=== PATIENT | female | born 1940 | race Caucasian/White ===

== ENCOUNTER 2016-11-08 13:09 | Day surgery (SDC) | payer MEDICARE ==
[~2016-11-08 13:09] MED LIST: LISI10TA3 PO; MACR100C2 PO; PACLPB100P
[2016-11-08 14:10] VITALS: BP 134/85; PULSE 60; RESP 14; TEMP 97.5; O2SAT 98
[2016-11-08 15:03] VITALS: BP 131/78; PULSE 96; RESP 14; TEMP 98.7; O2SAT 96
[2016-11-08 15:15] VITALS: BP 126/81; PULSE 93; RESP 20; O2SAT 95
[2016-11-08 15:30] VITALS: BP 146/76; PULSE 94; RESP 20; O2SAT 95
--- NOTE | 2016-11-08 16:21 | RADRPT ---
EXAM DATE/TIME: 11/08/2016 13:48 [facility] COMPARISON: US GUIDED ABD PARACENTESIS, October 25, 2016, 8:53. INDICATIONS : Ascites. MEDICAL HISTORY : Hypertension. Arthritis. Neuropathy. Ovarian and breast cancer. SURGICAL HISTORY : Hysterectomy. Bilateral cataract surgery. Paracentensis. Omental biosy. Left knee arthrscopy. ENCOUNTER: Subsequent ACUITY: 1 week PAIN SCORE: 3/10 LOCATION: Right lower quadrant FLUID: Total volume of 3,800 cc of clear, yellow fluid was removed. Fluid was discarded. Paracentesis was therapeutic only. Post procedure scanning reveals no hematoma or other complication. TECHNIQUE: 1. Ultrasound guidance for abdominal paracentesis. 2. Paracentesis. The risks, benefits, and alternatives to ultrasound guided paracentesis were explained to the patient in detail including the risk of bleeding and infection. Written and verbal informed consent was obt ained. With the patient on the ultrasound table, ultrasound imaging was used to select the most appropriate approach for paracentesis. Overlying skin was prepped and draped in the usual sterile fashion and wi th a local anesthetic, a dermatotomy was made with an 11 blade scalpel. A 6 Congolese [id number] ca theter was introduced into the peritoneal cavity and fluid was collected. The patient tolerated the procedure well and left the ultrasound suite in stable condition. CONCLUSION: Uncomplicated ultrasound guided paracentesis. Ty Owens MD on November 08, 2016 at 16:20 Board Certified Radiologist. This report was verified electronically.
== END 2016-11-08 16:00 | disposition home or self-care (01) ==
LOC: HRAD 13:09 → HRIP 13:10 → HRAD 16:00
PROVIDERS: ATTEND Obstetrics & Gynecology Gynecologic Oncology
DX: R18.8 Other ascites (principal); I10 Essential (primary) hypertension; M19.90 Unspecified osteoarthritis, unspecified site
CPT/HCPCS: 49083; C1729

== ENCOUNTER 2016-11-21 10:11 | Day surgery (SDC) | payer MEDICARE ==
[2016-11-21 11:05] VITALS: BP 130/82; PULSE 111; RESP 14; TEMP 97.8; O2SAT 97
--- NOTE | 2016-11-21 12:13 | RADRPT ---
EXAM DATE/TIME: 11/21/2016 10:32 [facility] COMPARISON: EXTERNAL COMPARISON: US GUIDED ABD PARACENTESIS, November 08, 2016, 13:48. [facility], CT ABDOMEN & PELVIS W/CONTR AST, Jul 12 2016, May 17, 2016, XR ABDOMEN FLAT & UPRIGHT, July 11, 2016, May 17, 2016, PET/C T TUMOR COMPLETE, June 19, 2016. INDICATIONS : Ascites. MEDICAL HISTORY : Hypertension. Arthritis. Neuropathy. Ovarian and breast cancer. Ascites. SURGICAL HISTORY : Hysterectomy. Bilateral cataract surgery. Paracentesis. Omental biopsy. Left knee arthroscopy. Chem otherapy. Blood transfusions. ENCOUNTER: [facility] ACUITY: 2 weeks PAIN SCORE: 5/10 LOCATION: Right lower quadrant FLUID: Total volume of 4,100 cc of clear, dark yellow fluid was removed. Fluid was discarded. Paracentesis was therapeutic only. Post procedure scanning reveals no hematoma or other complication. TECHNIQUE: 1. Ultrasound guidance for abdominal paracentesis. 2. Paracentesis. The risks, benefits, and alternatives to ultrasound guided paracentesis were explained to the patient in detail including the risk of bleeding and infection. Written and verbal informed consent was obt ained. With the patient on the ultrasound table, ultrasound imaging was used to select the most appropriate approach for paracentesis. Overlying skin was prepped and draped in the usual sterile fashion and wi th a local anesthetic, a dermatotomy was made with an 11 blade scalpel. A 6 Turkmen [id number]-A-[id number] ca theter was introduced into the peritoneal cavity and fluid was collected. The patient tolerated the procedure well and left the ultrasound suite in stable condition. CONCLUSION: Uncomplicated ultrasound guided paracentesis. Roddy Lamb MD FACR on November 21, 2016 at 12:07 Board Certified Radiologist. This report was verified electronically.
[2016-11-21 12:16] VITALS: BP 127/90; PULSE 109; RESP 20; TEMP 98.1; O2SAT 96
[2016-11-21 12:30] VITALS: BP 147/90; PULSE 110; RESP 18; O2SAT 96
== END 2016-11-21 12:53 | disposition home or self-care (01) ==
LOC: HRAD 10:11 → HRIP 10:11 → HRAD 12:53
PROVIDERS: ATTEND Obstetrics & Gynecology Gynecologic Oncology
DX: R18.8 Other ascites (principal); I10 Essential (primary) hypertension; M19.90 Unspecified osteoarthritis, unspecified site; C56.9 Malignant neoplasm of unspecified ovary; R97.1 Elevated cancer antigen 125 [CA 125]; B95.4 Other streptococcus as the cause of diseases classified elsewhere; Z79.899 Other long term (current) drug therapy
CPT/HCPCS: 49083; 96365; 96366; 96375; C1729; J1626; J1642; J3475; J7030

== ENCOUNTER 2016-11-29 10:12 | Day surgery (SDC) | payer MEDICARE ==
[2016-11-29 10:42] VITALS: BP 123/91; PULSE 104; RESP 14; TEMP 97.8; O2SAT 94
[2016-11-29 12:00] VITALS: BP 115/69; PULSE 98; RESP 18; TEMP 97.5; O2SAT 98
[2016-11-29 12:15] VITALS: BP 118/77; PULSE 93; RESP 16; O2SAT 97
[2016-11-29 12:30] VITALS: BP 118/76; PULSE 96; RESP 18; O2SAT 97
--- NOTE | 2016-11-29 15:29 | RADRPT ---
EXAM DATE/TIME: 11/29/2016 10:52 [facility] COMPARISON: No previous studies available for comparison. EXTERNAL COMPARISON: [facility], CT ABDOMEN & PELVIS W/CONTRAST, Jul 12 2015 and 05/17/16. XR ABDOMEN FLAT & UPRIGH T, July 11, 2016, May 17, 2016, PET/CT TUMOR COMPLETE, May INDICATIONS : Ascites. MEDICAL HISTORY : Hypertension. Arthritis. Neuropathy. Ovarian and breast cancer. Ascites. SURGICAL HISTORY : Hysterectomy. Bilateral cataract surgery. Paracentesis. Omental biopsy.Left knee arthroscopy. Chemo therapy. Blood transfusions. ENCOUNTER: Sequela ACUITY: 1 week PAIN SCORE: 11/06 LOCATION: Right lower quadrant FLUID: Total volume of 2,600 cc of clear, yellow fluid was removed. Fluid was discarded. Paracentesis was therapeutic only. Post procedure scanning reveals no hematoma or other complication. TECHNIQUE: 1. Ultrasound guidance for abdominal paracentesis. 2. Paracentesis. The risks, benefits, and alternatives to ultrasound guided paracentesis were explained to the patient in detail including the risk of bleeding and infection. Written and verbal informed consent was obt ained. With the patient on the ultrasound table, ultrasound imaging was used to select the most appropriate approach for paracentesis. Overlying skin was prepped and draped in the usual sterile fashion and wi th a local anesthetic, a dermatotomy was made with an 11 blade scalpel. A 6 Belarusian [id number]-P-[id number] ca theter was introduced into the peritoneal cavity and fluid was collected. The patient tolerated the procedure well and left the ultrasound suite in stable condition. CONCLUSION: Uncomplicated ultrasound guided paracentesis. Thiago Zaragoza MD on November 29, 2016 at 15:27 Board Certified Radiologist. This report was verified electronically.
== END 2016-11-29 12:55 | disposition home or self-care (01) ==
LOC: HRAD 10:12 → HRIP 10:12 → HRAD 12:55
PROVIDERS: ATTEND Obstetrics & Gynecology Gynecologic Oncology
DX: R18.8 Other ascites (principal); I10 Essential (primary) hypertension; M19.90 Unspecified osteoarthritis, unspecified site
CPT/HCPCS: 49083; C1729

== ENCOUNTER 2016-12-07 10:03 | Day surgery (SDC) | payer MEDICARE ==
[2016-12-07 10:28] VITALS: BP 127/76; PULSE 102; RESP 14; TEMP 97; O2SAT 100
[2016-12-07] MEDS ORDERED: LIDOCAINE HCL 1% PF 30 ML VIAL ONE (11:13)
[2016-12-07 11:16] VITALS: BP 119/91; PULSE 102; RESP 18; O2SAT 100
[2016-12-07 11:34] VITALS: BP 125/91; PULSE 105; RESP 19; O2SAT 100
--- NOTE | 2016-12-07 13:36 | RADRPT ---
EXAM DATE/TIME: 12/07/2016 10:16 [facility] COMPARISON: US GUIDED ABD PARACENTESIS, November 29, 2016, 10:52. INDICATIONS : Ascites. MEDICAL HISTORY : Hypertension. Breast cancer. Ovarian cancer. SURGICAL HISTORY : Cataract surgery. Chemotherapy. ENCOUNTER: Subsequent ACUITY: 1 week PAIN SCORE: 3/10 LOCATION: Right lower quadrant FLUID: Total volume of 3000 cc of clear, yellow fluid was removed. Fluid was discarded. Paracentesis was therapeutic only. Post procedure scanning reveals no hematoma or other complication. TECHNIQUE: 1. Ultrasound guidance for abdominal paracentesis. 2. Paracentesis. The risks, benefits, and alternatives to ultrasound guided paracentesis were explained to the patient in detail including the risk of bleeding and infection. Written and verbal informed consent was obt ained. With the patient on the ultrasound table, ultrasound imaging was used to select the most appropriate approach for paracentesis. Overlying skin was prepped and draped in the usual sterile fashion and wi th a local anesthetic, a dermatotomy was made with an 11 blade scalpel. A 6 Burmese [id number]-[id number] ca theter was introduced into the peritoneal cavity and fluid was collected. The patient tolerated the procedure well and left the ultrasound suite in stable condition. CONCLUSION: Uncomplicated ultrasound guided paracentesis. Roddy Lamb MD FACR on December 07, 2016 at 13:35 Board Certified Radiologist. This report was verified electronically.
== END 2016-12-07 12:55 | disposition home or self-care (01) ==
LOC: HRIP 10:03 → HRAD 10:03
PROVIDERS: ATTEND Obstetrics & Gynecology Gynecologic Oncology
DX: R18.8 Other ascites (principal); I10 Essential (primary) hypertension; Z85.43 Personal history of malignant neoplasm of ovary; Z85.3 Personal history of malignant neoplasm of breast
CPT/HCPCS: 49083; C1729

== ENCOUNTER 2016-12-08 16:42 | Inpatient (IN) | payer MEDICARE ==
[~2016-12-08] VITALS: Ht 170.2 cm; Wt 62.0 kg
[2016-12-08 16:46] VITALS: BP 126/74; PULSE 118; RESP 20; TEMP 97.7; O2SAT 96
--- NOTE | 2016-12-08 16:55 | PD ---
HPI Chief Complaint: abdominal pain, vomiting Time Seen by Provider: 16:55 Travel History International Travel<30 days: No Contact w/Intl Traveler<30days: No Traveled to known affect area: No History of Present Illness HPI 76-year-old female came to the emergency room with history of nausea and vomiting for past 1 week. She is having some abdominal discomfort as well. She is concerned if she has small bowel obstruction. Patient has history of ovarian cancer and has had multiple surgeries. She is going through chemotherapy. She looks sick and emaciated. Patient says that for past 3-4 weeks she hasn't had any chemotherapy because she wanted to take a break. She had a paracentesis done yesterday by radiology. Patient was tachycardic when she arrived with her heart rate in 1 teens. Her is here with her. Patient says her last vomit was earlier this morning. She has been having some bowel movement but they are small in quantity and frequent. She had some bites of Jell-O and visits of drink today after the vomit and that seems to stay down. The color of her vomit is [place]. No blood noticed. She said her oncologist is Dr. Phillip[facility] Past Medical History Narrative Medical List of her past medical history as reviewed from the nursing note. Cancer: Yes (RIGHT BREAST/ OVARIAN) Cardiovascular Problems: No Chemotherapy: Yes (09/21/16) Diabetes: No Endocrine: No Genitourinary: No Hepatitis: No Hiatal Hernia: No Hypertension: Yes Immune Disorder: No Implanted Vascular Access Dvce: Yes (L PORT ) Musculoskeletal: Yes (ARTHRITIS, BONE PAIN FROM NEULASTA) Neurologic: Yes (NEUROPATHY FEET/ HANDS (CHEMO)) Psychiatric: No Reproductive: Yes (OVARIAN ) Respiratory: No Thyroid Disease: No Past Surgical History Abdominal Surgery: No AICD: No Cardiac Surgery: No Ear Surgery: No Endocrine Surgery: No Eye Surgery: Yes (BENJA. CATARACT EXTRACT.) Genitourinary Surgery: No Gynecologic Surgery: Yes (PARACENTESIS, OMENTAL BX, HYSTERECTOMY/BSO) Hysterectomy: Yes Joint Replacement: No Oral Surgery: No Pacemaker: No Thoracic Surgery: No Other Surgery: Yes Social History Alcohol Use: No Tobacco Use: No Substance Use: No Allergies-Medications (Allergen,Severity, Reaction): Coded Allergies: *MDRO Multi-Drug Resistant Organism (Verified Adverse Reaction, Unknown, 2 /11/17) ESBL E. coli (urine) - 08/27/16 Comments List of her allergies reviewed from the nursing note. Reported Meds & Prescriptions Reported Meds & Active Scripts Active Narrative Medication List of her medications reviewed from the nursing note. Review of Systems Except as stated in HPI: all other systems reviewed are Neg Physical Exam Narrative GENERAL: Awake, alert, emaciated, moderate distress, anxious SKIN: Warm and dry. Pale HEAD: Atraumatic. Normocephalic. EYES: Pupils equal and round. No scleral icterus. No injection or drainage. ENT: No nasal bleeding or discharge. Dry mucous membrane NECK: Trachea midline. No JVD. CARDIOVASCULAR: Regular rate and rhythm. No murmur appreciated. RESPIRATORY: No accessory muscle use. Clear to auscultation. Breath sounds equal bilaterally. GASTROINTESTINAL: Abdomen is tense and distended. Multiple scars from old surgery. Decreased bowel sounds. Hepatic and splenic margins not palpable. MUSCULOSKELETAL: No obvious deformities. No clubbing. No cyanosis. No edema. NEUROLOGICAL: Awake and alert. No obvious cranial nerve deficits. Motor grossly within normal limits. Normal speech. PSYCHIATRIC: Appropriate mood and affect; insight and judgment normal. Data Data Last Documented VS Vital Signs Date Time Temp Pulse Resp B/P Pulse Ox O2 Delivery O2 Flow Rate FiO2 12/08/16 17:09 18 99 Room Air 12/08/16 16:46 97.7 118 126/74 Orders Complete Blood Count With Diff (12/08/16 17:07) Comprehensive Metabolic Panel (12/08/16 17:07) Lipase (12/08/16 17:07) Prothrombin Time / Inr (Pt) (12/08/16 17:07) Urinalysis - C+S If Indicated (12/08/16 17:07) Ct Abd/Pel W/O Iv Contrast (12/08/16 17:07) Iv Access Insert/Monitor (12/08/16 17:07) Ecg Monitoring (12/08/16 17:07) Oximetry (12/08/16 17:07) Ondansetron Inj (Zofran Inj) (12/08/16 17:15) Sodium Chlor 0.9% 1000 Ml Inj (Ns 1000 M (12/08/16 17:07) Sodium Chloride 0.9% Flush (Ns Flush) (12/08/16 17:15) Type And Screen (12/08/16 17:07) Sue-Gastric Tube Insert/Mon (12/08/16 18:20) Admit Order (Ed Use Only) (12/08/16 18:30) Labs Laboratory Tests Test 12/08/16 17:21 White Blood Count 11.9 TH/MM3 Red Blood Count 3.85 MIL/MM3 Hemoglobin 12.2 GM/DL Hematocrit 36.4 % Mean Corpuscular Volume 94.5 FL Mean Corpuscular Hemoglobin 31.5 PG Mean Corpuscular Hemoglobin 33.4 % Concent Red Cell Distribution Width 20.3 % Platelet Count 230 TH/MM3 Mean Platelet Volume 7.6 FL Neutrophils (%) (Auto) 79.7 % Lymphocytes (%) (Auto) 9.6 % Monocytes (%) (Auto) 10.0 % Eosinophils (%) (Auto) 0.1 % Basophils (%) (Auto) 0.6 % Neutrophils # (Auto) 9.5 TH/MM3 Lymphocytes # (Auto) 1.1 TH/MM3 Monocytes # (Auto) 1.2 TH/MM3 Eosinophils # (Auto) 0.0 TH/MM3 Basophils # (Auto) 0.1 TH/MM3 CBC Comment AUTO DIFF Differential Comment AUTO DIFF CONFIRMED Platelet Estimate NORMAL Platelet Morphology Comment NORMAL Red Cell Morphology Comment NORMAL Prothrombin Time 11.5 SEC Prothromb Time International 1.0 RATIO Ratio Sodium Level 136 MEQ/L Potassium Level 4.0 MEQ/L Chloride Level 102 MEQ/L Carbon Dioxide Level 27.1 MEQ/L Anion Gap 7 MEQ/L Blood Urea Nitrogen 31 MG/DL Creatinine 1.03 MG/DL Estimat Glomerular Filtration 52 ML/MIN Rate Random Glucose 105 MG/DL Calcium Level 7.9 MG/DL Total Bilirubin 0.5 MG/DL Aspartate Amino Transf 27 U/L (AST/SGOT) Alanine Aminotransferase 28 U/L (ALT/SGPT) Alkaline Phosphatase 170 U/L Total Protein 4.9 GM/DL Albumin 1.8 GM/DL Lipase 78 U/L Blood Type A POSITIVE Antibody Screen NEGATIVE MDM Medical Decision Making Medical Screen Exam Complete: Yes Emergency Medical Condition: Yes Medical Record Reviewed: Yes Differential Diagnosis Small bowel obstruction, ascites, intra-abdominal mass Narrative Course 6:27 PM blood test results are back and within acceptable limits. CAT scan however shows small bowel obstruction. I spoke with the patient about the diagnosis and requirement of the nasogastric tube and admission. Awaiting for the residents to call back. I will also put a call out for her oncologist Dr. Phillip and waiting for him to call back. Procedures EKG Prior to Arrival: No Diagnosis Primary Impression: Small bowel obstruction Additional Impressions: Ovarian cancer Qualified Code: C56.9 - Ovarian cancer, unspecified laterality Malignant ascites Admitting Information Admitting Physician Requests: Admit Scripts No Active Prescriptions or Reported Meds Yoselin Cavazos MD Dec 08, 2016 16:55
[2016-12-08] MEDS ORDERED: SODIUM CHLOR 0.9% 1000 ML INJ 1,000 ML IV SCH (17:07)
[2016-12-08 17:09] VITALS: RESP 18; O2SAT 99
[2016-12-08] MEDS ORDERED: SODIUM CHLORIDE 0.9% FLUSH 5 ML FLUSH IVF PRN (17:15)
[2016-12-08] MEDS ORDERED: ONDANSETRON HCL 4 MG/2 ML VIAL IVP ONE (17:15)
[2016-12-08 17:41] LABS: AUTOMATED NEUTROPHIL # 9.5 TH/MM3 (1.8-7.7); BASOPHIL # 0.1 TH/MM3 (0-0.2); BASOPHIL % 0.6 % (0.0-2.0); EOSINOPHIL % 0.1 % (0.0-4.0); HEMATOCRIT 36.4 % (35.0-46.0); LYMPH % 9.6 % (9.0-44.0); LYMPHOCYTE # 1.1 TH/MM3 (1.0-4.8); MEAN CELL VOLUME 94.5 FL (80.0-100.0); MEAN CORPUSCULAR HEMOGLOBIN 31.5 PG (27.0-34.0); MEAN CORPUSCULAR HGB CONC 33.4 % (32.0-36.0); NEUT % 79.7 % (16.0-70.0); PLATELET COUNT 230 TH/MM3 (150-450); RED BLOOD COUNT 3.85 MIL/MM3 (4.00-5.30); RED CELL DISTRIBUTION WIDTH 20.3 % (11.6-17.2); WHITE BLOOD COUNT 11.9 TH/MM3 (4.0-11.0)
[2016-12-08 17:43] LABS: HEMO FLAGS AUTO DIFF
[2016-12-08 17:50] LABS: PROTHROMBIN TIME - PATIENT 11.5 SEC (9.8-11.6)
[2016-12-08 17:57] LABS: ALT (GPT) 28 U/L (10-53); ANION GAP 7 MEQ/L (5-15); AST (GOT) 27 U/L (15-37); BICARBONATE 27.1 MEQ/L (21.0-32.0); BLOOD UREA NITROGEN 31 MG/DL (7-18); CHLORIDE 102 MEQ/L (98-107); GLOMERULAR FILTRATION RATE 52 ML/MIN (>89); SODIUM (NA) 136 MEQ/L (136-145)
[2016-12-08 17:59] LABS: ALKALINE PHOSPHATASE 170 U/L (45-117); TOTAL BILIRUBIN ADULT 0.5 MG/DL (0.2-1.0)
--- NOTE | 2016-12-08 18:15 | RADRPT ---
EXAM DATE/TIME: 12/08/2016 17:38 [facility] COMPARISON: No previous studies available for comparison. INDICATIONS : Diffuse abdominal pain with nausea and vomiting for 1 week. ORAL CONTRAST: No oral contrast ingested. RADIATION DOSE: 6.79 CTDIvol (mGy) MEDICAL HISTORY : Hypertension. Carcinoma, breast. Ovarian cancer. SURGICAL HISTORY : Colon resection. Paracentesis; Right lumpectomy. ENCOUNTER: Initial ACUITY: 1 week PAIN SCALE: 5/10 LOCATION: Diffuse abdomen/pelvis TECHNIQUE: Volumetric scanning of the abdomen and pelvis was performed. Using automated exposure control and ad justment of the mA and/or kV according to patient size, radiation dose was kept as low as reasonably achievable to obtain optimal diagnostic quality images. FINDINGS: Lung bases are clear. There is moderate ascites around the liver and spleen. There is gaseous distent ion of small bowel with multiple air-fluid levels. Findings are characteristic of a small bowel obstr uction similar in appearance to September 2016. Mild constipation in the rectum. Mild lumbar levoscoli osis. No free air. CONCLUSION: 1. Small bowel obstruction similar in appearance to September 2016. 2. Moderate ascites also similar to September 2016. No free air. Lung bases clear. Alban Farris MD on December 08, 2016 at 17:52 Board Certified Radiologist. This report was verified electronically.
[2016-12-08 18:42] LABS: PLATELET ESTIMATE SMEAR NORMAL (NORMAL); PLATELET MORPHOLOGY NORMAL (NORMAL); SCAN/DIFF AUTO DIFF CONFIRMED
--- NOTE | 2016-12-08 19:02 | HHI.HP ---
[facility] Service Family Medicine Primary Care Physician Silver Berry MD Admission Diagnosis small bowel obstruction, ovarian cancer, malignant ascites Diagnoses: International Travel<30 Days: No Contact w/Intl Traveler<30days: No Known Affected Area: No History of Present Illness This is 76-year-old, female with past medical history significant for ovarian cancer currently on a break from chemotherapy. She is presenting to the ED for a one-week history of nausea and vomiting. She's been having cramping pains throughout that week though they have improved at this time. She 's been burping as well multiple times. Today. She has mailed to get any solid foods down eating mostly soups and Jell-O's. She says she's had bowel movement every day since this is been occurring however they have been much smaller than her norm soft and less frequent. She strains trying to prove out what she can. She gets paracentesis frequently last time was yesterday . Even after the paracentesis and the ascites removed she feels that her abdomen is bloated and harder then her norm. She denies any blood in her stool , says that it has been brown. The vomiting has been orange color the last episode of vomiting was at 1500 on 12/08/16. Since being in the hospital on antinausea medications she says that her nausea has greatly improved. She denies any fevers or chills. Review of Systems Constitutional: COMPLAINS OF: Fatigue, Weight loss, Change in appetite ( decreased), DENIES: Fever, Weight gain, Chills, Dizziness Endocrine: DENIES: Polydipsia, Polyuria Eyes: DENIES: Blurred vision, Double Vision Ears, nose, mouth, throat: COMPLAINS OF: Hoarseness, DENIES: Tinnitus, Throat pain, Running Nose, Sinus Pain Respiratory: DENIES: Cough, Sputum production, Shortness of breath Cardiovascular: COMPLAINS OF: Lower Extremity Edema, DENIES: Chest pain, Syncope Gastrointestinal: COMPLAINS OF: Abdominal pain, Constipation, Nausea, Vomiting , Difficulty Swallowing, Anorexia, DENIES: Black stools, Bloody stools, Diarrhea Genitourinary: DENIES: Urinary frequency, Urinary incontinence, Hematuria Musculoskeletal: COMPLAINS OF: Back pain, DENIES: Joint pain, Stiffness, Neck pain Integumentary: DENIES: Rash Hematologic/lymphatic: DENIES: Bruising Neurologic: DENIES: Abnormal gait, Headache, Seizures, Tremor Psychiatric: DENIES: Anxiety, Depression Past Family Social History Past Medical History Ovarian Cancer seeing Dr. Kumar Has had multiple chemotherapy regimens HTN currently not needing medications Past Surgical History Hysterectomy Two colectomies Lumpectomy Right breast for breast cancer Cataracts Reported Medications Reported Meds & Active Scripts Active Tomaxafin but unable to take it Allergies: Coded Allergies: *MDRO Multi-Drug Resistant Organism (Verified Adverse Reaction, Unknown, ) ESBL E. coli (urine) - 08/27/16 Active Ordered Medications Current Medications Medications (Trade) Dose Ordered Sig/Rodger Route Start Time Stop Time Status Last Admin (NS Flush) 2 ml UNSCH PRN IVF 12/08/16 17:15 Family History Father with prostate cancer and DM Social History [facility] in [facility] in a house with 1 dog and 2 cats Retired [employer] Smoked in college none since Occasional alcohol Has tried medical marijuana Physical Exam Vital Signs Vital Signs Date Time Temp Pulse Resp B/P Pulse Ox O2 Delivery O2 Flow Rate FiO2 12/08/16 17:09 18 99 Room Air 12/08/16 16:46 97.7 118 20 126/74 96 Room Air Physical Exam GENERAL: Awake, alert, emaciated, moderate distress, anxious SKIN: Warm and dry. Pale HEAD: Atraumatic. Normocephalic. EYES: Pupils equal and round. No scleral icterus. No injection or drainage. ENT: No nasal bleeding or discharge. Dry mucous membrane. Tympanic membranes seen. Borders appropriate. Cone of light reflecting to back of head. NECK: Trachea midline. No JVD. Moist mucous membranes CARDIOVASCULAR: Regular rate and rhythm. No murmur appreciated. RESPIRATORY: No accessory muscle use. Clear to auscultation. Breath sounds equal bilaterally. GASTROINTESTINAL: Abdomen is tense and distended, firm. Multiple scars from old surgery. Decreased bowel sounds. Hepatic and splenic margins not palpable. Negative fluid wave MUSCULOSKELETAL: No obvious deformities. No clubbing. No cyanosis. No edema. NEUROLOGICAL: Awake and alert. No obvious cranial nerve deficits. Motor grossly within normal limits. Normal speech. PSYCHIATRIC: Appropriate mood and affect; insight and judgment normal. Laboratory Laboratory Tests Test 12/08/16 17:21 White Blood Count 11.9 Red Blood Count 3.85 Hemoglobin 12.2 Hematocrit 36.4 Mean Corpuscular Volume 94.5 Mean Corpuscular Hemoglobin 31.5 Mean Corpuscular Hemoglobin 33.4 Concent Red Cell Distribution Width 20.3 Platelet Count 230 Mean Platelet Volume 7.6 Neutrophils (%) (Auto) 79.7 Lymphocytes (%) (Auto) 9.6 Monocytes (%) (Auto) 10.0 Eosinophils (%) (Auto) 0.1 Basophils (%) (Auto) 0.6 Neutrophils # (Auto) 9.5 Lymphocytes # (Auto) 1.1 Monocytes # (Auto) 1.2 Eosinophils # (Auto) 0.0 Basophils # (Auto) 0.1 CBC Comment AUTO DIFF Differential Comment AUTO DIFF CONFIRMED Platelet Estimate NORMAL Platelet Morphology Comment NORMAL Red Cell Morphology Comment NORMAL Prothrombin Time 11.5 Prothromb Time International 1.0 Ratio Sodium Level 136 Potassium Level 4.0 Chloride Level 102 Carbon Dioxide Level 27.1 Anion Gap 7 Blood Urea Nitrogen 31 Creatinine 1.03 Estimat Glomerular Filtration 52 Rate Random Glucose 105 Calcium Level 7.9 Total Bilirubin 0.5 Aspartate Amino Transf 27 (AST/SGOT) Alanine Aminotransferase 28 (ALT/SGPT) Alkaline Phosphatase 170 Total Protein 4.9 Albumin 1.8 Lipase 78 Blood Type A POSITIVE Antibody Screen NEGATIVE Result Diagram: 12/08/16 1721 12/08/16 1721 Imaging Last Impressions Abdomen/Pelvis CT 12/08/161706 Signed Impressions: Service Date/Time: Saturday, December 08, 2016 17:38 - CONCLUSION: 1. Small bowel obstruction similar in appearance to September 2016. 2. Moderate ascites also similar to September 2016. No free air. Lung bases clear. Alban Fraris MD Assessment and Plan Assessment and Plan This is 76-year-old, female with past medical history significant for ovarian cancer currently on a break from chemotherapy. Being admitted for small bowel obstruction. Code Status Full code Discussed Condition With [facility]: Dr. Carmichael Problem List: (1) SBO (small bowel obstruction) Status: Acute Plan: History of nausea vomiting and bloating. Decrease stools. CT shows small bowel obstruction. * Admitted to inpatient * Place an NG tube * Consulted GI * Holding off on consulting general surgery in hopes for improvement of small bowel obstruction with bowel rest * D5 half-normal saline at 100 MLS per hour * Zofran 4 mg IV every 6 hours nausea or vomiting * Protonix 40 mg IV * CBC, BMP ordered for the a.m. Pain control: * Morphine 2 mg IV every 4 hours (2) Malignant ascites Status: Acute Plan: Frequently paracentesis for malignant ascites. Last paracentesis occurred on 12/07/16 * Continue to monitor for ascites (3) Ovarian cancer Status: Chronic Plan: Patient has a history of ovarian cancer treated with surgery and chemotherapy. Has had 2 colectomies. * Consulted Dr. Phillip recommendations appreciated (4) Nutrition, metabolism, and development symptoms Status: Acute Plan: Nothing by mouth IV fluid hydration Monitor I's replace accordingly DVT prophylaxis with SCDs and heparin every 8 Vitals every 4 Bed rest with bathroom privileges CODE STATUS: Full code Disposition: Pending improvement of small bowel obstruction Physician Certification 2 Midnight Certification Type: Admission for Inpatient Services Order for Inpatient Services The services are ordered in accordance with Medicare regulations or non- Medicare payer requirements, as applicable. In the case of services not specified as inpatient-only, they are appropriately provided as inpatient services in accordance with the 2-midnight benchmark. Estimated LOS (days): 3 days is the estimated time the patient will need to remain in the hospital, assuming treatment plan goals are met and no additional complications. Post-Hospital Plan: Home Problem Qualifiers (1) Ovarian cancer: Qualified Code: C56.9 - Ovarian cancer, unspecified laterality Bennie Trivedi MD R2 Dec 08, 2016 19:02
[2016-12-08] MEDS ORDERED: MORPHINE SULFATE 4 MG/ML INJ IV PRN (19:15)
[2016-12-08] MEDS ORDERED: LIDOCAINE HCL 2% JELLY 5 ML SYRINGE TOPICAL ONE (19:15)
[2016-12-08] MEDS ORDERED: ACETAMINOPHEN 650 MG SUPP PR PRN (19:15)
[2016-12-08 19:19] VITALS: BP 137/73; PULSE 98; RESP 18; O2SAT 99
[2016-12-08 22:40] VITALS: BP 101/69; PULSE 100; RESP 18; O2SAT 97
[2016-12-08] MEDS: HEPARIN SODIUM - SQ 10,000 UNITS/ML VIAL SQ SCH (22:45)
[2016-12-08] MEDS: D5-1/2 NS + KCL 20 MEQ INJ 1,000 ML IV SCH (22:45)
[2016-12-09] MEDS: HEPARIN SODIUM - SQ 10,000 UNITS/ML VIAL SQ SCH ×3 (04:30→21:47)
[2016-12-09 05:28] LABS: AUTOMATED NEUTROPHIL # 7.2 TH/MM3 (1.8-7.7); BASOPHIL % 0.3 % (0.0-2.0); EOSINOPHIL % 0.2 % (0.0-4.0); HEMATOCRIT 31.3 % (35.0-46.0); HEMO FLAGS DIFF FINAL; LYMPH % 11.7 % (9.0-44.0); LYMPHOCYTE # 1.1 TH/MM3 (1.0-4.8); MEAN CELL VOLUME 95.7 FL (80.0-100.0); MEAN CORPUSCULAR HGB CONC 33.4 % (32.0-36.0); MONO % 9.8 % (0.0-8.0); PLATELET COUNT 187 TH/MM3 (150-450); RED BLOOD COUNT 3.27 MIL/MM3 (4.00-5.30); RED CELL DISTRIBUTION WIDTH 20.1 % (11.6-17.2); WHITE BLOOD COUNT 9.3 TH/MM3 (4.0-11.0)
[2016-12-09 05:38] LABS: BICARBONATE 25.6 MEQ/L (21.0-32.0); POTASSIUM 3.8 MEQ/L (3.5-5.1)
[2016-12-09 06:17] LABS: CALCIUM-PROTEIN CORRECTED 8.9 MG/DL (8.5-10.1)
[2016-12-09] MEDS: D5-1/2 NS + KCL 20 MEQ INJ 1,000 ML IV SCH ×3 (07:00→18:13)
[2016-12-09 08:00] VITALS: BP 99/56; PULSE 86; RESP 16; TEMP 97.2; O2SAT 98
[2016-12-09 08:07] VITALS: PULSE 70
[2016-12-09] MEDS: PANTOPRAZOLE SODIUM 40 MG VIAL IVP SCH (09:17)
--- NOTE | 2016-12-09 10:34 | PD.CONS ---
HPI History of Present Illness This is a 76 year old female being seen by GI due to nausea/vomiting x 1 week. Patient came to ER due to these symptoms. She has been having "orange colored" emesis several times per day, with increased belching. At this time, patient was having a BM everyday that has smaller than usual. Today the patient reports she has been having diarrhea "all night" with intermittent stomach cramping. Abdominal CT showed SBO, but patient reports that imaging always show this. Abdominal CT imaging is consistent with that done in September 2016. She has ovarian cancer and has been on chemo, but stopped 3-4 weeks ago for a "break." She is having abdominal paracentesis, due to malignant ascites, completed weekly , with last one 12/07/16. She also has a history of colectomies x 2. Reports last colonoscopy was several years ago. (Erika Carter) PFSH Past Medical History -Ovarian cancer, with chemotherapy, followed by Dr. Kumar -Malignant ascites -HTN Past Surgical History -Hysterectomy -Colectomies x2 -R breast lumpectomy, R breast cancer -Cataracts (Erika Carter) Coded Allergies: *MDRO Multi-Drug Resistant Organism (Verified Adverse Reaction, Unknown, ) ESBL E. coli (urine) - 08/27/16 Medications Current Medications Medications (Trade) Dose Ordered Sig/Rodger Route PRN Reason Start Time Stop Time Status Last Admin Dose Admin IV Flush 2 ml 2 ml UNSCH PRN IVF FLUSH AFTER USING IV ACCESS 12/08/16 17:15 Potassium Chloride/Dextrose/ Sod Cl (D5-1/2 NS + KCl 20 Meq Inj) 1,000 ml @ 100 mls/hr Q10H IV 12/08/16 21:00 12/09/16 09:23 Morphine Sulfate (Morphine Inj) 2 mg Q4H PRN IV PAIN SCALE 1 TO 10 12/08/16 19:15 Ondansetron HCl (Zofran Inj) 4 mg Q6H PRN IV NAUSEA 12/08/16 19:15 Acetaminophen (Tylenol Supp) 650 mg Q4H PRN [place] FEVER 12/08/16 19:15 Pantoprazole Sodium (Protonix Inj) 40 mg DAILY IVP 12/09/16 09:00 12/09/16 09:17 Heparin Sodium (Porcine) (Heparin Inj) 5,000 units Q8H SQ 12/08/16 21:00 12/09/16 04:30 Family History -No family history of colon cancer Social History -Occasional ETOH -No current tobacco use -No IV drug use (Erika Carter) Review of Systems Constitutional: COMPLAINS OF: Change in appetite, DENIES: Diaphoretic episodes , Fatigue, Fever, Chills, Dizziness, Night Sweats Endocrine: DENIES: Polydipsia, Polyuria Eyes: DENIES: Blurred vision, Photosensitivity, Double Vision Ears, nose, mouth, throat: DENIES: Hearing loss, Vertigo, Oral lesions, Throat pain, Hoarseness Respiratory: DENIES: Cough, Wheezing, Hemoptysis, Sputum production, Shortness of breath Cardiovascular: DENIES: Chest pain, Palpitations, Syncope, Lower Extremity Edema, Orthopnea, Claudication Gastrointestinal: COMPLAINS OF: Abdominal pain (intermittent cramping ), Diarrhea, Swelling of Abdomen, DENIES: Black stools, Bloody stools, Nausea, Vomiting, Difficulty Swallowing Genitourinary: DENIES: Urinary frequency, Urinary incontinence, Urgency, Hematuria, Dysuria, Nocturia Musculoskeletal: DENIES: Joint pain, Muscle aches, Stiffness, Joint Swelling, Back pain, Neck pain Integumentary: DENIES: Abnormal pigmentation, Nail changes, Pruritus, Rash, Jaundice Hematologic/lymphatic: DENIES: Bruising, Lymphadenopathy Immunologic/allergic: DENIES: Eczema, Urticaria Neurologic: DENIES: Abnormal gait, Headache, Localized weakness, Paresthesias Psychiatric: DENIES: Anxiety, Confusion, Mood changes, Depression, Agitation, Suicidal Ideation (Erika Carter) GI Exam Vitals I&O Vital Signs Date Time Temp Pulse Resp B/P Pulse Ox O2 Delivery O2 Flow Rate FiO2 12/09/16 08:00 97.2 86 16 99/56 98 12/08/16 22:40 100 18 101/69 97 Room Air 12/08/16 19:19 98 18 137/73 99 Room Air 12/08/16 17:09 18 99 Room Air 12/08/16 16:46 97.7 118 20 126/74 96 Room Air I/O 2/11/17 212/08/16 12/09/16 12/09/16 12/09/16 07:00 15:00 23:00 07:00 15:00 23:00 # Bowel Movements 1 Imaging Last Impressions Abdomen/Pelvis CT 12/08/16 1707 Signed Impressions: Service Date/Time: Thursday, December 08, 2016 17:38 - CONCLUSION: 1. Small bowel obstruction similar in appearance to September 2016. 2. Moderate ascites also similar to September 2016. No free air. Lung bases clear. Alban Farris MD Laboratory Test 12/08/16 12/09/16 17:21 04:30 White Blood Count 11.9 TH/MM3 9.3 TH/MM3 Red Blood Count 3.85 MIL/MM3 3.27 MIL/MM3 Hemoglobin 12.2 GM/DL 10.5 GM/DL Hematocrit 36.4 % 31.3 % Mean Corpuscular Volume 94.5 FL 95.7 FL Mean Corpuscular Hemoglobin 31.5 PG 32.0 PG Mean Corpuscular Hemoglobin 33.4 % 33.4 % Concent Red Cell Distribution Width 20.3 % 20.1 % Platelet Count 230 TH/MM3 187 TH/MM3 Mean Platelet Volume 7.6 FL 7.6 FL Neutrophils (%) (Auto) 79.7 % 78.0 % Lymphocytes (%) (Auto) 9.6 % 11.7 % Monocytes (%) (Auto) 10.0 % 9.8 % Eosinophils (%) (Auto) 0.1 % 0.2 % Basophils (%) (Auto) 0.6 % 0.3 % Neutrophils # (Auto) 9.5 TH/MM3 7.2 TH/MM3 Lymphocytes # (Auto) 1.1 TH/MM3 1.1 TH/MM3 Monocytes # (Auto) 1.2 TH/MM3 0.9 TH/MM3 Eosinophils # (Auto) 0.0 TH/MM3 0.0 TH/MM3 Basophils # (Auto) 0.1 TH/MM3 0.0 TH/MM3 CBC Comment AUTO DIFF DIFF FINAL Differential Comment AUTO DIFF CONFIRMED Platelet Estimate NORMAL Platelet Morphology Comment NORMAL Red Cell Morphology Comment NORMAL Prothrombin Time 11.5 SEC Prothromb Time International 1.0 RATIO Ratio Sodium Level 136 MEQ/L 139 MEQ/L Potassium Level 4.0 MEQ/L 3.8 MEQ/L Chloride Level 102 MEQ/L 106 MEQ/L Carbon Dioxide Level 27.1 MEQ/L 25.6 MEQ/L Anion Gap 7 MEQ/L 7 MEQ/L Blood Urea Nitrogen 31 MG/DL 28 MG/DL Creatinine 1.03 MG/DL 0.81 MG/DL Estimat Glomerular Filtration 52 ML/MIN 69 ML/MIN Rate Random Glucose 105 MG/DL 93 MG/DL Calcium Level 7.9 MG/DL 7.2 MG/DL Total Bilirubin 0.5 MG/DL Aspartate Amino Transf 27 U/L (AST/SGOT) Alanine Aminotransferase 28 U/L (ALT/SGPT) Alkaline Phosphatase 170 U/L Total Protein 4.9 GM/DL 4.1 GM/DL Albumin 1.8 GM/DL Lipase 78 U/L Blood Type A POSITIVE Antibody Screen NEGATIVE Protein Corrected Calcium 8.9 MG/DL Physical Examination HEENT: PERRLA NECK: Neck is supple, trachea midline CHEST: CTA CARDIAC: RRR ABDOMEN: Distended, firm. Bowel sounds present in all 4 quadrants. EXTREMITIES: No peripheral edema. 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 (Erika Carter) Assessment and Plan Plan ASSESSMENT: -Nausea, vomiting--Resolved today. -SBO--Abdominal CT-SBO, moderate ascites, no free air, similar to imaging results in September 2016. -Diarrhea--Patient was having small stool every day for a week, but now is having diarrhea. -Ascites--Malignant, secondary to ovarian cancer. Completes paracentesis weekly , last one on 12/07/16. PLAN: -Stool studies -Patient does not want to have EGD/colonoscopy at this time. She would like to speak with Dr. Hilario in regards to this. -Continue abdominal paracentesis as needed. -Further recommendations to follow based on results of above. Patient seen and examined by Dr. Zurita and myself and this note is written on his behalf. (Erika Carter) Physician Comments Seen and examined with EMRE, doing better this morning. Passing liquid stools, will be started on clear liquid diet. Not a candidate for surgery. Similar episodes in the past, the last one in september. at bedside. Check for c. diff, no gi interventions needed/wanted at the present time. If doesnot tolerate liquids, consult Surgery. Discussed with pt. and . Thank you ( George Zurita MD) Erika Carter Dec 09, 2016 10:34 George Zurita MD Dec 09, 2016 12:07
--- NOTE | 2016-12-09 11:15 | HHI.FPPN ---
Subjective Remarks Patient seen, examined and discussed with the medicine team. This is a 76 year-old female who was initially diagnosed with ovarian cancer in the fall of 2014. She was treated with chemotherapy for a few months , and subsequently had hysterectomy. She had metastasis to the transverse colon and had colon resection. She has been on chemotherapy since that time, and now admits that they are not seeming to make much progress. Last Saturday she had paracentesis which is now needing to be done approximately every week. She always hopes to feel better after paracentesis, but has not been able to feel better. She is experiencing weight loss, fatigue, no appetite or minimal appetite, and has had nausea and vomiting with bilious emesis on presentation. She's had a lot of burping and abdominal cramping. She was found to have small bowel obstruction given a history of ovarian cancer with multiple metastases, including omental caking. She is currently on a break from her chemotherapy because they weren't making much progress. Has declined an NG tube at this point. History of breast lumpectomy in 1997 and history of cataract surgery as well as the robotic hysterectomy/nephrectomy and colectomy as noted above. See history and physical examination for this admission to include past, family and social history. Review of systems morning: Fatigue and weakness, unable to walk to the bathroom, only able to get to the bedside commode, at home ambulating with a walker now. No nausea at this point, and does have an appetite and would like to try clear liquids. This morning, she is willing to discuss her course of therapy and admits that she is not making progress. She feels as though it may be time to pursue comfort care. She is willing to meet with the hospice/palliative care team. Patient understands that hospice can provide many supportive services for her in her home. Objective Vitals Vital Signs Date Time Temp Pulse Resp B/P Pulse Ox O2 Delivery O2 Flow Rate FiO2 12/09/16 08:00 97.2 86 16 99/56 98 12/08/16 22:40 100 18 101/69 97 Room Air 12/08/16 19:19 98 18 137/73 99 Room Air 12/08/16 17:09 18 99 Room Air 12/08/16 16:46 97.7 118 20 126/74 96 Room Air I/O 2/11/17 12/08/16 12/08/16 12/09/16 12/09/16 12/09/16 07:00 15:00 23:00 07:00 15:00 23:00 Intake Total 600 ml Balance 600 ml Intake Oral 600 ml # Bowel Movements 1 Result Diagram: 12/09/16 0430 12/09/16 0430 Imaging Last Impressions Abdomen/Pelvis CT 12/08/16 1707 Signed Impressions: Service Date/Time: Thursday, December 08, 2016 17:38 - CONCLUSION: 1. Small bowel obstruction similar in appearance to September 2016. 2. Moderate ascites also similar to September 2016. No free air. Lung bases clear. Alban Farris MD Objective Remarks O. CONSTITUTIONAL/GEN: normally nourished, weak and wan. Pleasant and interactive. EYES: conjunctiva normal, PERRLA, EOMI. NECK: Supple LUNGS: clear anteriorly, respiratory effort is normal. CARDIOVASCULAR: RR without murmur or gallop. No significant edema. GI/ABD: Protuberant, vaguely tender to palpation, firm NEURO: No focal deficits. SKIN: color pale, no rashes noted. HEME/LYMPH: no bruising, petechia or significant adenopathy MUSC: Extremities are normal in appearance. PSYCH/MENTAL STATUS: Alert and oriented x 3. A/P Assessment and Plan This is 76-year-old, female with past medical history significant for ovarian cancer currently on a break from chemotherapy. Being admitted for small bowel obstruction. Attending Attestation Patient seen and examined. Case reviewed and discussed with the resident team. Agree with plan of care as discussed with me and documented in the orders and note. Problem List: (1) SBO (small bowel obstruction) Status: Acute Plan: History of nausea vomiting and bloating. Frequent small soft stools overnight. CT shows small bowel obstruction. * Admitted to inpatient * Declined NG tube * GI has been consulted * Holding off on consulting general surgery in hopes for improvement of small bowel obstruction with bowel rest * D5 half-normal saline at 100 MLS per hour * Zofran 4 mg IV every 6 hours nausea or vomiting * Protonix 40 mg IV * CBC, BMP ordered for the a.m. Pain control: * Morphine 2 mg IV every 4 hours (2) Malignant ascites Status: Chronic Plan: Frequent paracentesis for malignant ascites, lately every week. Last paracentesis occurred on 12/07/16 * Continue to monitor for ascites * She has agreed to consultation with hospice/palliative care (3) Ovarian cancer Status: Chronic Plan: Patient has a history of ovarian cancer treated with surgery and chemotherapy. Has had 2 colectomies. * Consulted Dr. Phillip, recommendations appreciated * She has agreed to consultation with hospice/palliative care (4) Nutrition, metabolism, and development symptoms Status: Acute Plan: She wants to try clear liquids IV fluid hydration Monitor lytes, replace accordingly DVT prophylaxis with SCDs and heparin every 8 Vitals every 4 Bedside commode CODE STATUS: Full code Disposition: Pending improvement of small bowel obstruction (5) Severe muscle deconditioning Status: Chronic Plan: PT ordered Problem Qualifiers (1) Ovarian cancer: Qualified Code: C56.9 - Ovarian cancer, unspecified laterality Charity Carmichael MD Dec 09, 2016 11:15
[2016-12-09 12:00] VITALS: BP 111/67; PULSE 90; RESP 18; TEMP 97; O2SAT 98
[2016-12-09 16:00] VITALS: BP 107/62; PULSE 84; RESP 16; TEMP 96.8; O2SAT 98
[2016-12-09 19:58] VITALS: BP 115/67; PULSE 88; RESP 16; TEMP 97.7; O2SAT 95
[2016-12-10] VITALS (7 sets, daily range): BP systolic 94–130; BP diastolic 57–83; PULSE 83–110; RESP 16–18; TEMP 96.8–99.2; O2SAT 96–99
[2016-12-10] MEDS: HEPARIN SODIUM - SQ 10,000 UNITS/ML VIAL SQ SCH ×3 (04:13→21:50)
[2016-12-10] MEDS: D5-1/2 NS + KCL 20 MEQ INJ 1,000 ML IV SCH ×2 (04:13→14:18)
[2016-12-10 05:03] LABS: HEMATOCRIT 30.5 % (35.0-46.0); MEAN CELL VOLUME 96.1 FL (80.0-100.0); MEAN CORPUSCULAR HEMOGLOBIN 31.6 PG (27.0-34.0); MEAN CORPUSCULAR HGB CONC 32.8 % (32.0-36.0); PLATELET COUNT 177 TH/MM3 (150-450); RED BLOOD COUNT 3.18 MIL/MM3 (4.00-5.30); RED CELL DISTRIBUTION WIDTH 20.4 % (11.6-17.2); REVIEW FLAG FINAL; WHITE BLOOD COUNT 8.7 TH/MM3 (4.0-11.0)
[2016-12-10 05:33] LABS: POTASSIUM 3.4 MEQ/L (3.5-5.1)
[2016-12-10 05:54] LABS: CALCIUM-PROTEIN CORRECTED 8.4 MG/DL (8.5-10.1)
--- NOTE | 2016-12-10 08:18 | PD.CONS ---
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 She was recently on fourth line of gemcitabine Abraxane chemotherapy. At the start of fourth line treatment, her CA-125 was 1921. Despite ongoing treatment her CA- 125 continues to increase and most recently is 2925. She has decided to take an IV chemotherapy break and had started Tamoxifen. During this past week she had complaints of nausea and vomiting with intermittent abdominal cramping. She was brought into the infusion center and given IV fluids, she was eating little but the symptoms persisted. She states she had + flatus but her bowels were moving not at regular. She came into ER for further evaluation. CT shown SBO she was admitted. She reports she started having diarrhea Saturday although she states that the diarrhea has stopped and she was able to sleep last night. She denies pain and states she is able to keep liquids down without any further nausea or vomiting. She states she talked to Hospice yesterday and she feels that if her PET/CT that is scheduled for Saturday is worse then she will sign up for Hospice. I explained to her that if she should choose Hospice then we can work towards having an abdominal drain placed so she will no longer need weekly paracentesis. She agrees that would be something she would want. Review of Systems Constitutional: COMPLAINS OF: Change in appetite Gastrointestinal: COMPLAINS OF: Abdominal pain, Diarrhea, Nausea, Vomiting, Anorexia Neurologic: COMPLAINS OF: Localized weakness Except as stated in HPI: all other systems reviewed are Neg generalized weakness, requires walker to help with ambulation Past Family Social History Allergies: Coded Allergies: *MDRO Multi-Drug Resistant Organism (Verified Adverse Reaction, Unknown, ) ESBL E. coli (urine) - 08/27/16 Physical Exam Vital Signs Vital Signs Date Time Temp Pulse Resp B/P Pulse Ox O2 Delivery O2 Flow Rate FiO2 12/10/16 04:00 97.1 83 16 118/61 96 12/10/16 00:05 99.2 89 16 120/68 96 12/09/16 19:58 97.7 88 16 115/67 95 12/09/16 16:00 96.8 84 16 107/62 98 12/09/16 12:00 97.0 90 18 111/67 98 12/09/16 08:07 70 12/09/16 08:00 97.2 86 16 99/56 98 Physical Exam GENERAL: This is a frail, well-developed patient, in no apparent distress. SKIN: No rashes, ecchymoses or lesions. Cool and dry. HEAD: Atraumatic. Normocephalic. No temporal or scalp tenderness. EYES: Pupils equal round and reactive. CARDIOVASCULAR: Regular rate and rhythm without murmurs, gallops, or rubs. RESPIRATORY: Clear to auscultation. Breath sounds equal bilaterally. No wheezes , rales, or rhonchi. GASTROINTESTINAL: Abdomen firm mostly to RUQ, +BS X 4, nontender and distended MUSCULOSKELETAL: Extremities without clubbing, cyanosis, or edema. NEUROLOGICAL: Awake and alert. Normal speech. Laboratory Laboratory Tests Test 12/10/16 04:20 White Blood Count 8.7 Red Blood Count 3.18 Hemoglobin 10.0 Hematocrit 30.5 Mean Corpuscular Volume 96.1 Mean Corpuscular Hemoglobin 31.6 Mean Corpuscular Hemoglobin 32.8 Concent Red Cell Distribution Width 20.4 Platelet Count 177 Mean Platelet Volume 7.5 Sodium Level 139 Potassium Level 3.4 Chloride Level 108 Carbon Dioxide Level 22.0 Anion Gap 9 Blood Urea Nitrogen 18 Creatinine 0.70 Estimat Glomerular Filtration 82 Rate Random Glucose 79 Calcium Level 6.7 Protein Corrected Calcium 8.4 Total Protein 3.9 Date/Time Procedure Status Source Growth 12/09/16 11:50 Cryptosporidium Exam Received Stool Stool Pending 12/09/16 11:50 Stool Pus (MARGIE) Received Stool Stool Pending 12/09/16 11:50 Giardia Antigen (MARGIE) Received Stool Stool Pending 12/09/16 11:50 Received Stool Stool Pending Result Diagram: 12/10/1641912/10/16419 Imaging Last Impressions Abdomen/Pelvis CT 12/08/16 1707 Signed Impressions: Service Date/Time: Thursday, December 08, 2016 17:38 - CONCLUSION: 1. Small bowel obstruction similar in appearance to September 2016. 2. Moderate ascites also similar to September 2016. No free air. Lung bases clear. Alban Farris MD Course Patient was admitted to [facility]. GI has been consulted and Mrs. Murphy declined EGD, colonoscopy, and NG tube. She requested to talk with Hospice about her options and feels that if imaging scheduled for Saturday is worse then she will go to Hospice. I talked with her about the difficult situation we are in, despite given her multiple lines of IV chemo we have never been able to get her in remission. Despite resent treatment (line 4) her CA 125 has continued to increase and she still requires weekly paracentesis. Both Dr. Phillip and myself feel that Hospice is a good option and if she feels that getting the PET/CT on Saturday will help in her decision making then we support that. Assessment and Plan Problem List: (1) Ovarian cancer Status: Chronic Plan: patient is s/p line 4 chemotherapy with Gemzar and Abraxane and despite multiple lines of treatment we have been unable to obtain remission. Mrs. Murphy is currently taking oral Tamoxifen requiring weekly paracentesis. PET/CT scheduled for Saturday and final decision on Hospice will be made after that is resulted. Mrs. Murphy met with Hospice yesterday. (2) SBO (small bowel obstruction) Status: Acute Plan: GI has been consulted and suggested EGD and colonoscopy pt declined. declined NG tube placement...overall symptoms have improved with no further diarrhea (culture pending)...again addressed NG with her and she stated that she would be willing to have placed if she starts having nausea and vomiting again. no further nausea or vomiting and she is keeping fluids down supportive care Discussed Condition With Dr. Phillip and he is in agreement with this plan. Problem Qualifiers (1) Ovarian cancer: Qualified Code: C56.9 - Ovarian cancer, unspecified laterality Ted Huerta Dec 10, 2016 08:18
--- NOTE | 2016-12-10 09:05 | HHI.FPPN ---
Subjective Remarks Patient seen and examined this morning. Afebrile vital signs stable. She reports that her diarrhea stopped last night and today she is feeling fine. She has done the clear liquid diets and tolerated it well. Discussed moving to full liquid diet versus regular diet, she requests starting regular diet and that she will eat small amounts of plain foods. She says she spoke with hospice yesterday. She wants to wait and see the results of the PET scan on Saturday at that time will determine which direction she wants to go with possible hospice. Endorses: Abdominal pain, bowel movement Denies: Fever, chills, nausea, vomiting, shortness of breath, chest pain, headache, calf pain (Bennie Trivedi MD R2) Objective Vitals Vital Signs Date Time Temp Pulse Resp B/P Pulse Ox O2 Delivery O2 Flow Rate FiO2 12/10/16 04:00 97.1 83 16 118/61 96 12/10/16 00:05 99.2 89 16 120/68 96 12/09/16 19:58 97.7 88 16 115/67 95 12/09/16 16:00 96.8 84 16 107/62 98 12/09/16 12:00 97.0 90 18 111/67 98 I/O 12/09/16 12/09/16 12/09/16 12/10/16 12/10/16 12/10/16 07:00 15:00 23:00 07:00 15:00 23:00 Intake Total 1863 ml 1442 ml Balance 1863 ml 1442 ml Intake Oral 960 ml 0 ml IV Total 903 ml 1442 ml # Voids 4 2 2 # Bowel Movements 1 4 3 (Bennie Trivedi MD R2) Result Diagram: 12/10/16 0420 12/10/16 0420 Imaging Last Impressions Abdomen/Pelvis CT 12/08/16 1707 Signed Impressions: Service Date/Time: Thursday, December 08, 2016 17:38 - CONCLUSION: 1. Small bowel obstruction similar in appearance to September 2016. 2. Moderate ascites also similar to September 2016. No free air. Lung bases clear. Alban Farris MD Objective Remarks O. CONSTITUTIONAL/GEN: normally nourished, weak and wan. Pleasant and interactive. EYES: conjunctiva normal, PERRLA, EOMI. NECK: Supple LUNGS: clear anteriorly, respiratory effort is normal. CARDIOVASCULAR: RR without murmur or gallop. No significant edema. GI/ABD: Protuberant, vaguely tender to palpation, firm NEURO: No focal deficits. SKIN: color pale, no rashes noted. HEME/LYMPH: no bruising, petechia or significant adenopathy MUSC: Extremities are normal in appearance. PSYCH/MENTAL STATUS: Alert and oriented x 3. Medications and IVs Current Medications Medications (Trade) Dose Ordered Sig/Rodger Route Start Time Stop Time Status Last Admin IV Flush 2 ml 2 ml UNSCH PRN IVF 12/08/16 17:15 (D5-1/ NS + KCl 20 Meq Inj) 1,000 ml @ 100 mls/hr Q10H IV 12/08/16 21:00 12/10/16 04:13 (Morphine Inj) 2 mg Q4H PRN IV 12/08/16 19:15 (Zofran Inj) 4 mg Q6H PRN IV 12/08/16 19:15 (Tylenol Supp) 650 mg Q4H PRN LA 12/08/16 19:15 (Protonix Inj) 40 mg DAILY IVP 12/09/16 09:00 12/09/16 09:17 (Heparin Inj) 5,000 units Q8H SQ 12/08/16 21:00 12/10/16 04:13 (Bennie Trivedi MD R2) A/P Assessment and Plan This is 76-year-old, female with past medical history significant for ovarian cancer currently on a break from chemotherapy. Admitted for small bowel obstruction. Discharge Planning Upon improvement of small bowel obstruction and tolerating diet by mouth. Possible Discharge for tomorrow. (Bennie Trivedi MD R2) Attending Attestation Patient seen and examined. Case reviewed and discussed with the resident team. Agree with plan of care as discussed with me and documented in the resident note. (Charity Carmichael MD) Problem List: (1) SBO (small bowel obstruction) Status: Acute Plan: History of nausea vomiting and bloating. Frequent small soft stools overnight. CT shows small bowel obstruction. Has subsequently developed diarrhea, though reports diarrhea has stopped last night. * Admitted to inpatient * Declined NG tube * GI has been consulted * Holding off on consulting general surgery in hopes for improvement of small bowel obstruction with bowel rest * D5 half-normal saline at 100 MLS per hour * Zofran 4 mg IV every 6 hours nausea or vomiting * Protonix 40 mg IV * CBC, BMP ordered for the a.m. * Stool studies pending Pain control: * Morphine 2 mg IV every 4 hours (2) Malignant ascites Status: Chronic Plan: Frequent paracentesis for malignant ascites, lately every week. Last paracentesis occurred on 12/07/16 * Continue to monitor for ascites * She has agreed to consultation with hospice/palliative care * Klonopin for anxiety (3) Ovarian cancer Status: Chronic Plan: Patient has a history of ovarian cancer treated with surgery and chemotherapy. Has had 2 colectomies. After discussion with hospice, she wishes to wait for results of PET scan on Saturday12/14/16 before making any further decision. * Consulted Dr. Phillip, recommendations appreciated * She has agreed to consultation with hospice/palliative care (4) Severe muscle deconditioning Status: Chronic Plan: PT ordered (5) Nutrition, metabolism, and development symptoms Status: Acute Plan: She wants to try a regular diet on amounts of plain food Monitor lytes, replace accordingly DVT prophylaxis with SCDs and heparin every 8 Vitals every 4 Bedside commode CODE STATUS: Full code Disposition: Pending improvement of small bowel obstruction (Bennie Trivedi MD R2) Problem Qualifiers (1) Ovarian cancer: Qualified Code: C56.9 - Ovarian cancer, unspecified laterality Bennie Trivedi MD R2 Dec 10, 2016 09:05 Charity Carmichael MD Dec 10, 2016 13:51
[2016-12-10] MEDS: PANTOPRAZOLE SODIUM 40 MG VIAL IVP SCH (09:19)
[2016-12-10] MEDS: clonazePAM 0.5 MG TAB PO SCH ×2 (11:56→21:50)
--- NOTE | 2016-12-10 16:56 | HHI.GIFU ---
Subjective Remarks Resting in bed. States she is feeling better and tolerated a regular diet today. Pain improved. One loose stool- improving. Hoping to be able to go home tomorrow so she can fu later in week for outpatient PET scan (Andria Marrero) Objective Vitals I&O Vital Signs Date Time Temp Pulse Resp B/P Pulse Ox O2 Delivery O2 Flow Rate FiO2 12/10/16 12:00 96.8 110 18 94/66 98 12/10/16 08:00 97.2 92 18 99/57 98 12/10/16 04:00 97.1 83 16 118/61 96 12/10/16 00:05 99.2 89 16 120/68 96 12/09/16 19:58 97.7 88 16 115/67 95 I/O 12/09/16 12/09/16 12/09/16 12/10/16 12/10/16 12/10/16 07:00 15:00 23:00 07:00 15:00 23:00 Intake Total 1863 ml 1442 ml 980 ml Balance 1863 ml 1442 ml 980 ml Intake Oral 960 ml 0 ml IV Total 903 ml 1442 ml 980 ml # Voids 4 2 2 # Bowel Movements 1 4 3 Laboratory Laboratory Tests Test 12/10/16 04:20 White Blood Count 8.7 Red Blood Count 3.18 Hemoglobin 10.0 Hematocrit 30.5 Mean Corpuscular Volume 96.1 Mean Corpuscular Hemoglobin 31.6 Mean Corpuscular Hemoglobin 32.8 Concent Red Cell Distribution Width 20.4 Platelet Count 177 Mean Platelet Volume 7.5 Sodium Level 139 Potassium Level 3.4 Chloride Level 108 Carbon Dioxide Level 22.0 Anion Gap 9 Blood Urea Nitrogen 18 Creatinine 0.70 Estimat Glomerular Filtration 82 Rate Random Glucose 79 Calcium Level 6.7 Protein Corrected Calcium 8.4 Total Protein 3.9 Date/Time Procedure Status Source Growth 12/09/16 11:50 Cryptosporidium Exam - Final Complete Stool Stool NEGATIVE - NO CRYPTOSPORIDIUM ANTIGEN... 12/09/16 11:50 Stool Pus (MARGIE) - Final Complete Stool Stool RARE WBC 12/09/16 11:50 Giardia Antigen (MARGIE) - Final Complete Stool Stool NEGATIVE - NO GIARDIA ANTIGEN DETECTE... 12/09/16 11:50 - Final Complete Stool Stool NO ENTERIC PATHOGENS DETECTED BY PCR... Imaging Last Impressions Abdomen/Pelvis CT 12/08/16 1707 Signed Impressions: Service Date/Time: Thursday, December 08, 2016 17:38 - CONCLUSION: 1. Small bowel obstruction similar in appearance to September 2016. 2. Moderate ascites also similar to September 2016. No free air. Lung bases clear. Alban Farris MD Physical Exam HEENT: Normocephalic; atraumatic; no jaundice. CHEST: CTA CARDIAC: RRR ABDOMEN: Soft mildly distended, mild tenderness, mild ascites; no hepatosplenomegaly; bowel sounds are present in all four quadrants. EXTREMITIES: No clubbing, cyanosis, or edema. SKIN: Normal; no rash; no jaundice. 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 (Andria Marrero) Assessment and Plan Plan ASSESSMENT: - SBO, N/V. RESOLVING. Abdomen/Pelvis CT (12/08/16)---> 1. Small bowel obstruction similar in appearance to September 2016. 2. Moderate ascites also similar to September 2016. No free air. Lung bases clear. Pt now tolerating regular diet. + BM- states her diarrhea is improving and she only had one loose stool today. Tolerated regular diet. No n/v. - Diarrhea, Improved. Stool negative for cryptosporidium, giardia, rare wbc, enteric pathogens, will send for cdiff. - Malignant ascites, secondary to ovarian cancer. Requiring weekly paracentesis , last on 12/07/16. States they are considering drain. PLAN: - Regular diet - Send stool for CDiff - Monitor labs - Pt would like to hold on endoscopic procedures and speak to her GI physician re: this. Sees Dr. Hilario - Further recommendations to follow based on results of above. - Pt seen and examined by Dr. Da Silva and myself and this note is written on her behalf (Andria Marrero) Physician Comments agree (Giselle Da Silva MD) Andria Marrero Dec 10, 2016 16:56 Giselle Da Silva MD Dec 11, 2016 17:25
[2016-12-11] VITALS (9 sets, daily range): BP systolic 92–150; BP diastolic 60–89; PULSE 67–106; RESP 14–20; TEMP 96.4–98.6; O2SAT 95–100
[2016-12-11] MEDS: D5-1/2 NS + KCL 20 MEQ INJ 1,000 ML IV SCH (01:39)
[2016-12-11] MEDS: HEPARIN SODIUM - SQ 10,000 UNITS/ML VIAL SQ SCH ×3 (04:42→21:24)
[2016-12-11 05:27] LABS: HEMATOCRIT 32.2 % (35.0-46.0); MEAN CELL VOLUME 95.2 FL (80.0-100.0); MEAN CORPUSCULAR HEMOGLOBIN 31.9 PG (27.0-34.0); MEAN CORPUSCULAR HGB CONC 33.5 % (32.0-36.0); PLATELET COUNT 186 TH/MM3 (150-450); RED BLOOD COUNT 3.38 MIL/MM3 (4.00-5.30); RED CELL DISTRIBUTION WIDTH 20.6 % (11.6-17.2); REVIEW FLAG FINAL; WHITE BLOOD COUNT 9.6 TH/MM3 (4.0-11.0)
[2016-12-11 05:53] LABS: BICARBONATE 23.1 MEQ/L (21.0-32.0); POTASSIUM 3.3 MEQ/L (3.5-5.1)
[2016-12-11 06:11] LABS: CALCIUM-PROTEIN CORRECTED 8.1 MG/DL (8.5-10.1)
[2016-12-11] MEDS ORDERED: CALCIUM CARBONATE 500 MG CHEWABLE TAB CHEW ONE (07:15)
[2016-12-11] MEDS ORDERED: POTASSIUM CHLORIDE 10 MEQ CONTROLLED RELEASE TAB PO ONE (07:15)
[2016-12-11] MEDS: clonazePAM 0.5 MG TAB PO SCH ×3 (07:54→21:24)
[2016-12-11] MEDS: PANTOPRAZOLE SODIUM 40 MG VIAL IVP SCH (08:01)
--- NOTE | 2016-12-11 09:04 | MB ---
cc: MISTY DANIEL M.D., KELLY L. MD HOWARD,CHARITY Verma M.D. DATE OF CONSULTATION 12/10/2016. She is also seen in followup on 12/11/2016. PHYSICIAN REQUESTING CONSULT Dr. Charity Carmichael. REASON FOR CONSULTATION Ovarian cancer. Patient known to us. REASON FOR ADMISSION Small bowel obstruction. HISTORY This patient is seen. Her findings are reviewed. She is evaluated by me, examined by me and counseled in conjunction with our nurse practitioner (Ted Huerta). I agree with her findings, assessment of plan and care. This 76-year-old female has been under our care with quinault refractory, persistent, progressive ovarian cancer. Upon recent outpatient followup approximately week and a half ago, it was decided to take a break from intravenous chemotherapy as there has been evidence of disease progression despite treatment. She was started on oral tamoxifen. Clinically her CA-125 has been increasing. Her abdominal symptoms have worsened and the frequency of requiring therapeutic paracentesis has increased from every 4 weeks to every 2 weeks to now every week she becomes symptomatic. She is admitted to the hospital after having nausea and vomiting and decreased bowel function but with bowel rest and IV hydration she started having multiple bowel movements. Her nausea and vomiting have resolved and she is now tolerating oral intake. PAST MEDICAL HISTORY, SURGICAL HISTORY, FAMILY HISTORY, MEDICATIONS, REVIEW OF SYSTEMS, ALLERGIES All reviewed and are documented in the chart. There is no new information to add in this regard. 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 LABORATORY DATA Currently white count 9.6, H&H 10.8 and 32.2, platelets 186,000. Electrolytes notable for potassium low at 3.3, BUN and creatinine are normal at 14 and 0.61, corrected calcium low at 8.1. EXAMINATION VITAL SIGNS: She has been afebrile. Pulse from 89 to 110, respirations 16-18, blood pressure 94-130/66-83, O2 saturations greater than or equal to 98%. GENERAL: She is alert, oriented x 3, in no acute distress. She has a little bit of cachexia. She has had some weight loss in recent weeks. ABDOMEN: Distended. There is positive fluid wave. There is fullness in the epigastrium but is nonacute. There is no rebound or guarding. PELVIC: Exam deferred given recent office pelvic exam. DISCUSSION Time is spent in discussion with her, reviewing the findings in her case to date. She inquires as to whether not there would be a role for laparoscopic surgery, especially given recurrent small-bowel obstructions. We explained again the multifocal complex nature of intraperitoneal carcinomatosis and that it is rare that an isolated area of obstruction could be addressed and resolved when in fact it is almost certainly multifocal tumor implants on the bowel and the mesentery that collectively are precluding normal peristalsis. I am pleased that she is feeling better and showing improvement. She is scheduled for a PET/CT scan. She is interested in more objective data to compare previously and she states that if PET scan confirms our clinical suspicion showing progression of disease, she would be interested in considering shifting to palliative care, Hospice care to maximize comfort and minimize any symptomatology. Other questions were asked and answered to the best my capacity. She is getting uncomfortable due to reaccumulation of ascites. It has been five or six days since her last paracentesis. She would normally be tentatively scheduled for a therapeutic procedure this Saturday (in 2 days) but, as she is scheduled for an outpatient CT scan and she is becoming more symptomatic now, I think it maybe prudent to offer therapeutic paracentesis today if possible and she is in agreement and we will consult interventional radiology accordingly. ASSESSMENT 1. Recurrent progressive quinault-refractory Stage IV ovarian cancer. 2. Resolution of symptoms of small bowel obstruction at this time. 3. Symptomatic reaccumulation of ascites. 4. Discussion. PLAN 1. Continue present management. 2. Consult interventional radiology for ultrasound-guided therapeutic paracentesis. 3. Outpatient PET/CT scan as scheduled this Saturday. 4. Outpatient follow up with me on Saturday of next week. Thank you for the excellent care. Thank you for the consultation. MD TENISHA Hill/PILY /8:30 AM /8:50 AM
--- NOTE | 2016-12-11 09:44 | HHI.FPPN ---
Subjective Remarks Patient seen and examined this morning. Is having some increased abdominal pain , which she states she usually feels when she needs a paracentesis. Otherwise, feels much improved. Having regular bowel movements. Passing gas. Tolerating regular diet. Denies fever/chills, nausea/vomiting, chest pain, SOB, leg pain. ( Sadi Zelaya MD R1) Objective Vitals Vital Signs Date Time Temp Pulse Resp B/P Pulse Ox O2 Delivery O2 Flow Rate FiO2 12/11/16 04:00 97.4 95 18 109/78 100 12/11/16 00:00 97.7 89 17 125/75 99 12/10/16 20:00 97.4 106 18 130/83 99 12/10/16 16:00 97.5 99 18 111/68 98 12/10/16 12:00 96.8 110 18 94/66 98 12/10/16 09:57 98 I/O 12/10/16 12/10/16 12/10/16 12/11/16 12/11/16 12/11/16 07:00 15:00 23:00 07:00 15:00 23:00 Intake Total 1442 ml 980 ml Balance 1442 ml 980 ml Intake Oral 0 ml IV Total 1442 ml 980 ml # Voids 2 1 2 (Sadi Zelaya MD R1) Result Diagram: 12/11/1644212/11/16 0443 Objective Remarks O. CONSTITUTIONAL/GEN: normally nourished, Pleasant and interactive. LUNGS: clear anteriorly, respiratory effort is normal. CARDIOVASCULAR: RR without murmur or gallop. No significant edema. GI/ABD: Protuberant, vaguely tender to palpation, firm NEURO: No focal deficits. SKIN: color pale, no rashes noted. HEME/LYMPH: no bruising, petechia or significant adenopathy MUSC: Extremities are normal in appearance. PSYCH/MENTAL STATUS: Alert and oriented x 3. (Sadi Zelaya MD R1) A/P Assessment and Plan This is 76-year-old, female with past medical history significant for ovarian cancer currently on a break from chemotherapy. Admitted for small bowel obstruction. Discharge Planning Possible discharge today after paracentesis (Sadi Zelaya MD R1) Assessment and Plan IV saline locked. Tolerated clonazepam at half-dose. Paracentesis today, probably home tomorrow. Attending Attestation Patient seen and examined. Case reviewed and discussed with the resident team. Agree with plan of care as discussed with me and documented in the resident note. (Charity Carmichael MD) Problem List: (1) SBO (small bowel obstruction) Status: Acute Plan: CT shows small bowel obstruction. Has subsequently developed diarrhea, though reports diarrhea has stopped last night. * GI has been consulted * Stool studies negative, cdiff pending * D5 half-normal saline at 100 MLS per hour * Zofran 4 mg IV every 6 hours nausea or vomiting * Protonix 40 mg IV Pain control: * Morphine 2 mg IV every 4 hours (2) Malignant ascites Status: Chronic Plan: Frequent paracentesis for malignant ascites, lately every week. Last paracentesis occurred on 12/07/16 * IR consulted for ultrasound guided paracentesis * She has agreed to consultation with hospice/palliative care * Klonopin for anxiety (3) Ovarian cancer Status: Chronic Plan: Patient has a history of ovarian cancer treated with surgery and chemotherapy. Has had 2 colectomies. After discussion with hospice, she wishes to wait for results of PET scan on Saturday12/14/16 before making any further decision. * Consulted Dr. Phillip, recommendations appreciated * PET/CT outpatient this Saturday * She has agreed to consultation with hospice/palliative care (4) Severe muscle deconditioning Status: Chronic Plan: -Continue PT (5) Nutrition, metabolism, and development symptoms Status: Acute Plan: Regular diet Monitor lytes, replace accordingly DVT prophylaxis with SCDs and heparin every 8 Vitals every 4 Bedside commode CODE STATUS: Full code (Sadi Zelaya MD R1) Problem Qualifiers (1) Ovarian cancer: Qualified Code: C56.9 - Ovarian cancer, unspecified laterality Sadi Zelaya MD R1 Dec 11, 2016 09:44 Charity Carmichael MD Dec 11, 2016 14:04
[2016-12-11] MEDS ORDERED: CLON.5 PO ×2 (12:24→13:26)
--- NOTE | 2016-12-11 16:05 | RADRPT ---
EXAM DATE/TIME: 12/11/2016 10:56 [facility] COMPARISON: No previous studies available for comparison. INDICATIONS : Ascites. MEDICAL HISTORY : Hypertension. Breast cancer. Ovarian cancer SURGICAL HISTORY : Cataract. Chemotherapy. Paracentesis. ENCOUNTER: Subsequent ACUITY: 1 day PAIN SCORE: 0/10 LOCATION: Right lower quadrant FLUID: Total volume of 2600 cc of clear, yellow fluid was removed. Fluid was discarded. Paracentesis was therapeutic only. Post procedure scanning reveals no hematoma or other complication. TECHNIQUE: 1. Ultrasound guidance for abdominal paracentesis. 2. Paracentesis. The risks, benefits, and alternatives to ultrasound guided paracentesis were explained to the patient in detail including the risk of bleeding and infection. Written and verbal informed consent was obt ained. With the patient on the ultrasound table, ultrasound imaging was used to select the most appropriate approach for paracentesis. Overlying skin was prepped and draped in the usual sterile fashion and wi th a local anesthetic, a dermatotomy was made with an 11 blade scalpel. A 6 [place] [id number] ca theter was introduced into the peritoneal cavity and fluid was collected. The patient tolerated the procedure well and left the ultrasound suite in stable condition. CONCLUSION: Uncomplicated ultrasound guided paracentesis. Ty Desir MD on December 11, 2016 at 16:03 Board Certified Radiologist. This report was verified electronically.
--- NOTE | 2016-12-11 16:25 | PD.RAD ---
Post US Procedure Prog Note Pre Procedure Diagnosis: (1) Ovarian cancer (2) Malignant ascites Post Procedure Diagnosis: (1) Ovarian cancer (2) Malignant ascites Procedure Date: Dec 11, 2016 Supervising Radiologist: Ty Desir Proceduralist/Assist: Lety Gates RDMS Anesthesia: Local Plan of Activity Patient to Unit: ROPU Patient Condition: Fair See PACS Report for procedural detail/treatment Drainage Procedure Procedure 1 Imaging Guidance: Ultrasound Side: Right Procedure Type: Paracentesis Bangladeshi: 6 Drainage: Suction Fluid Description: Ty Camacho MD Dec 11, 2016 16:25
[2016-12-12] VITALS: BP 105/70; PULSE 102; RESP 17; TEMP 96.6; O2SAT 97
[2016-12-12 04:00] VITALS: BP 106/68; PULSE 101; RESP 17; TEMP 97.7; O2SAT 98
[2016-12-12] MEDS: HEPARIN SODIUM - SQ 10,000 UNITS/ML VIAL SQ SCH ×3 (04:35→20:55)
[2016-12-12 05:41] LABS: BICARBONATE 22.5 MEQ/L (21.0-32.0)
[2016-12-12 05:54] LABS: CALCIUM-PROTEIN CORRECTED 8.2 MG/DL (8.5-10.1)
[2016-12-12] MEDS: ONDANSETRON HCL 4 MG/2 ML VIAL IV PRN ×2 (06:12→17:39)
--- NOTE | 2016-12-12 07:25 | PD.ONC.PN ---
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 she states she feels better now, got a dose of Zofran this morning. she states she had to loose bowel movements yesterday. Objective Data Date Time Temp Pulse Resp B/P Pulse Ox O2 Delivery O2 Flow Rate FiO2 12/12/16 04:00 97.7 101 17 106/68 98 12/12/16 00:00 96.6 102 17 105/70 97 12/11/16 20:00 97.0 105 18 100/62 96 12/11/16 16:00 96.4 105 18 92/69 99 12/11/16 15:57 98.0 103 14 123/73 99 12/11/16 15:40 98.6 106 14 126/77 99 12/11/16 15:01 98.0 67 14 150/60 95 12/11/16 12:00 97.1 103 18 116/89 99 12/11/16 08:00 96.9 95 20 104/69 98 Result Diagram: 12/11/16 0443 12/12/16 0439 Laboratory Results Laboratory Tests Test 12/12/16 04:39 Sodium Level 135 MEQ/L Potassium Level 4.0 MEQ/L Chloride Level 102 MEQ/L Carbon Dioxide Level 22.5 MEQ/L Anion Gap 11 MEQ/L Blood Urea Nitrogen 15 MG/DL Creatinine 0.72 MG/DL Estimat Glomerular Filtration 79 ML/MIN Rate Random Glucose 82 MG/DL Calcium Level 6.9 MG/DL Protein Corrected Calcium 8.2 MG/DL Total Protein 4.6 GM/DL Culture Results Microbiology Date/Time Procedure Status Source Growth 12/09/16 11:50 - Final Complete Stool Stool NO ENTERIC PATHOGENS DETECTED BY PCR... 12/09/16 11:50 Cryptosporidium Exam - Final Complete Stool Stool NEGATIVE - NO CRYPTOSPORIDIUM ANTIGEN... 12/09/16 11:50 Stool Pus (MARGIE) - Final Complete Stool Stool RARE WBC 12/09/16 11:50 Giardia Antigen (MARGIE) - Final Complete Stool Stool NEGATIVE - NO GIARDIA ANTIGEN DETECTE... Administered Medications Medications (Trade) Dose Ordered Sig/Rodger Route PRN Reason Start Time Stop Time Status Last Admin Dose Admin Ondansetron HCl (Zofran Inj) 4 mg Q6H PRN IV NAUSEA 12/08/16 19:15 12/12/16 06:12 Pantoprazole Sodium (Protonix Inj) 40 mg DAILY IVP 12/09/16 09:00 12/11/16 08:01 Heparin Sodium (Porcine) (Heparin Inj) 5,000 units Q8H SQ 12/08/16 21:00 12/12/16 04:35 Clonazepam (KlonoPIN) 0.5 mg Q12HR PO 12/10/16 12:00 12/11/16 21:24 Objective Remarks GENERAL: frail SKIN: Warm and dry. HEAD: Normocephalic. EYES: No scleral icterus. No injection or drainage. GASTROINTESTINAL: Abdomen firm and distended + BS EXTREMITIES: bilat LE +1 edema NEUROLOGICAL: Awake, alert, and oriented x3. PSYCHIATRIC: Appropriate mood and affect; insight and judgment normal. Assessment/Plan Problem List: (1) SBO (small bowel obstruction) Status: Chronic Plan: episode of vomiting this morning...if continues may want to consider placement of NG tube to LIWS...pt agreed that if vomiting started again she would consider NG placement SBO likely d/t carcinomatosis and worsening disease. (2) Ovarian cancer Status: Chronic Plan: Despite multiple lines of IV chemotherapy pt has had increasing [id number] and required more frequent paracentesis. pt has PET/CT scheduled for Saturday12/14/16 based on results may choose supportive care with Hospice. Attending Statement Discussed with Dr. Phillip and he is in agreement with this plan. Problem Qualifiers (1) Ovarian cancer: Qualified Code: C56.9 - Ovarian cancer, unspecified laterality Ted Huerta Dec 12, 2016 07:25
[2016-12-12 07:58] VITALS: BP 107/73; PULSE 103; RESP 20; TEMP 96.3; O2SAT 95
[2016-12-12] MEDS: PANTOPRAZOLE SODIUM 40 MG VIAL IVP SCH (08:46)
[2016-12-12] MEDS: clonazePAM 0.5 MG TAB PO SCH ×2 (08:46→20:55)
--- NOTE | 2016-12-12 08:59 | HHI.FPPN ---
Subjective Remarks Patient seen and examined this morning. Afebrile vital signs stable. She reports that since getting her paracentesis her abdominal pain started to worsen and then this morning she started burping and vomiting. She denies having any more bowel movements since yesterday. She is worried about going home and that things will continue to worsen. Discussed with patient about converting to a full liquid diet and monitoring for a bowel movement later today. We will reassess discharge later this afternoon early evening. She is in agreement with this plan of care. Endorses: nausea, burping, vomiting, abdominal cramps, constipation Denies: Fever, chills, shortness of breath, chest pain, headache, calf pain ( Bennie Trivedi MD R2) Objective Vitals Vital Signs Date Time Temp Pulse Resp B/P Pulse Ox O2 Delivery O2 Flow Rate FiO2 12/12/16 07:58 96.3 103 20 107/73 95 12/12/16 04:00 97.7 101 17 106/68 98 12/12/16 00:00 96.6 102 17 105/70 97 12/11/16 20:00 97.0 105 18 100/62 96 12/11/16 16:00 96.4 105 18 92/69 99 12/11/16 15:57 98.0 103 14 123/73 99 12/11/16 15:40 98.6 106 14 126/77 99 12/11/16 15:01 98.0 67 14 150/60 95 12/11/16 12:00 97.1 103 18 116/89 99 I/O 12/11/16 12/11/16 12/11/16 12/12/16 12/12/16 12/12/16 07:00 15:00 23:00 07:00 15:00 23:00 Intake Total 720 ml 240 ml Balance 720 ml 240 ml Intake Oral 720 ml 240 ml # Voids 2 3 2 # Bowel Movements 2 (Bennie Trivedi MD R2) Result Diagram: 12/11/16 0443 12/12/16 0439 Imaging Last Impressions Cyst Biopsy Asp-Paracentesis US 12/11/16 0000 Signed Impressions: Service Date/Time: Sunday, December 11, 2016 10:56 - CONCLUSION: Uncomplicated ultrasound guided paracentesis. Ty Desir MD Abdomen/Pelvis CT 12/08/16 1707 Signed Impressions: Service Date/Time: Thursday, December 08, 2016 17:38 - CONCLUSION: 1. Small bowel obstruction similar in appearance to September 2016. 2. Moderate ascites also similar to September 2016. No free air. Lung bases clear. Alban Farris MD Objective Remarks O. CONSTITUTIONAL/GEN: normally nourished, Pleasant and interactive. LUNGS: clear anteriorly, respiratory effort is normal. CARDIOVASCULAR: RR without murmur or gallop. No significant edema. GI/ABD: Protuberant, vaguely tender to palpation, firm NEURO: No focal deficits. SKIN: color pale, no rashes noted. HEME/LYMPH: no bruising, petechia or significant adenopathy MUSC: Extremities are normal in appearance. PSYCH/MENTAL STATUS: Alert and oriented x 3. Medications and IVs Current Medications Medications (Trade) Dose Ordered Sig/Rodger Route Start Time Stop Time Status Last Admin (NS Flush) 2 ml UNSCH PRN IVF 12/08/16 17:15 (Morphine Inj) 2 mg Q4H PRN IV 12/08/16 19:15 (Zofran Inj) 4 mg Q6H PRN IV 12/08/16 19:15 12/12/16 06:12 (Tylenol Supp) 650 mg Q4H PRN GA 12/08/16 19:15 (Protonix Inj) 40 mg DAILY IVP 12/09/16 09:00 12/11/16 08:01 (Heparin Inj) 5,000 units Q8H SQ 12/08/16 21:00 12/12/16 04:35 (KlonoPIN) 0.5 mg Q12HR PO 12/10/16 12:00 12/11/16 21:24 (Bennie Trivedi MD R2) A/P Assessment and Plan This is 76-year-old, female with past medical history significant for ovarian cancer currently on a break from chemotherapy. Admitted for small bowel obstruction. Discharge Planning Reassess this afternoon for bowel movement prior to discharge. (Bennie Trivedi MD R2) Attending Attestation Patient seen and examined. Case reviewed and discussed with the resident team. Agree with plan of care as discussed with me and documented in the resident note. (Charity Carmichael MD) Problem List: (1) SBO (small bowel obstruction) Status: Chronic Plan: CT shows small bowel obstruction. Last night stopped having bowel movements and started having nausea and vomiting is more this morning. Patient is concerned that her obstruction has worsened. We will monitor for bowel movement today before discussing discharge * GI has been consulted * Stool studies negative, cdiff pending * Oral hydration * Full liquid Diet * Zofran 4 mg IV every 6 hours nausea or vomiting * Protonix 40 mg IV Pain control: * Morphine 2 mg IV every 4 hours (2) Malignant ascites Status: Chronic Plan: Frequent paracentesis for malignant ascites, lately every week. Last paracentesis occurred on 12/07/16 * IR consulted for ultrasound guided paracentesis * She has agreed to consultation with hospice/palliative care * Klonopin for anxiety (3) Ovarian cancer Status: Chronic Plan: Patient has a history of ovarian cancer treated with surgery and chemotherapy. Has had 2 colectomies. After discussion with hospice, she wishes to wait for results of PET scan on Saturday12/14/16 before making any further decision. * Consulted Dr. Phillip, recommendations appreciated * PET/CT outpatient this Saturday * She has agreed to consultation with hospice/palliative care (4) Severe muscle deconditioning Status: Chronic Plan: -Continue PT (5) Nutrition, metabolism, and development symptoms Status: Acute Plan: Full liquid diet Monitor lytes, replace accordingly DVT prophylaxis with SCDs and heparin every 8 Vitals every 4 Bedside commode CODE STATUS: Full code (Bennie Trivedi MD R2) Problem Qualifiers (1) Ovarian cancer: Qualified Code: C56.9 - Ovarian cancer, unspecified laterality Bennie Trivedi MD R2 Dec 12, 2016 08:59 Charity Carmichael MD Dec 12, 2016 14:28
[2016-12-12 11:50] VITALS: BP 100/73; PULSE 109; RESP 20; TEMP 96.2; O2SAT 97
[2016-12-12] MEDS ORDERED: 3-IN3MIS (13:51)
[2016-12-12] MEDS ORDERED: ZOFR4SOL PO (13:52)
--- NOTE | 2016-12-12 14:32 | HHI.DCPOC ---
Discharge Care Plan Diagnosis: (1) Malignant ascites (2) Severe muscle deconditioning (3) Small bowel obstruction (4) Ovarian cancer Goals to Promote Your Health * To prevent worsening of your condition and complications * To maintain your health at the optimal level Directions to Meet Your Goals Take your medications as prescribed Follow your dietary instruction Follow activity as directed Keep your appointments as scheduled Take your immunizations and boosters as scheduled If your symptoms worsen call your PCP, if no PCP go to Urgent Care Center or Emergency Room Smoking is Dangerous to Your Health. Avoid second hand smoke Call the 24-hour hour crisis hotline for domestic abuse at Sadi Zelaya MD R1 Dec 12, 2016 14:32
[2016-12-12 15:50] VITALS: BP 94/66; PULSE 114; RESP 20; TEMP 96.7; O2SAT 96
--- NOTE | 2016-12-12 16:04 | HHI.DS ---
Bennie Trivedi MD R2 12/12/16 1604: Discharge Summary Admission Date Dec 08, 2016 at 18:32 Admitting Diagnosis small bowel obstruction, ovarian cancer, malignant ascites (1) SBO (small bowel obstruction) Diagnosis: Principal Plan: CT shows small bowel obstruction. Last night stopped having bowel movements and started having nausea and vomiting is more this morning. Patient is concerned that her obstruction has worsened. We will monitor for bowel movement today before discussing discharge * GI has been consulted * Stool studies negative, cdiff pending * Oral hydration * Full liquid Diet * Zofran 4 mg IV every 6 hours nausea or vomiting * Protonix 40 mg IV Pain control: * Morphine 2 mg IV every 4 hours (2) Malignant ascites Diagnosis: Secondary Plan: Frequent paracentesis for malignant ascites, lately every week. Last paracentesis occurred on 12/07/16 * IR consulted for ultrasound guided paracentesis * She has agreed to consultation with hospice/palliative care * Klonopin for anxiety (3) Ovarian cancer Diagnosis: Secondary Plan: Patient has a history of ovarian cancer treated with surgery and chemotherapy. Has had 2 colectomies. After discussion with hospice, she wishes to wait for results of PET scan on Saturday12/14/16 before making any further decision. * Consulted Dr. Phillip, recommendations appreciated * PET/CT outpatient this Saturday * She has agreed to consultation with hospice/palliative care (4) Severe muscle deconditioning Plan: -Continue PT (5) Nutrition, metabolism, and development symptoms Diagnosis: Secondary Plan: Full liquid diet Monitor lytes, replace accordingly DVT prophylaxis with SCDs and heparin every 8 Vitals every 4 Bedside commode CODE STATUS: Full code [employer] Onc: Dr. Phillip Hospice Procedures Patient was admitted for a small bowel obstruction on 12/08/16. She has a history of ovarian cancer with metastasis and currently on a chemotherapy break. The obstruction is believed to be caused by the metastatic cancer. During the hospitalization the patient had a discussion with Hospice. She decided that she will wait for her PET scan that is scheduled for 12/14/16. During this hospitalization the SBO improved and she started to have multiple bowel movements and tolerated a PO diet. On 12/12/16 after several discussion she agreed with going home as she can manage her nausea with PO medications. She will continue to follow up with her [facility] oncologist and hospice as an outpatient as she makes further plans of care. Brief History This is 76-year-old, female with past medical history significant for ovarian cancer currently on a break from chemotherapy. She is presenting to the ED for a one-week history of nausea and vomiting. She's been having cramping pains throughout that week though they have improved at this time. She 's been burping as well multiple times. Today. She has mailed to get any solid foods down eating mostly soups and Jell-O's. She says she's had bowel movement every day since this is been occurring however they have been much smaller than her norm soft and less frequent. She strains trying to prove out what she can. She gets paracentesis frequently last time was yesterday . Even after the paracentesis and the ascites removed she feels that her abdomen is bloated and harder then her norm. She denies any blood in her stool , says that it has been brown. The vomiting has been orange color the last episode of vomiting was at 1500 on 12/08/16. Since being in the hospital on antinausea medications she says that her nausea has greatly improved. She denies any fevers or chills. CBC/BMP: 12/11/16 0443 12/12/16 0439 Significant Findings Laboratory Tests Test 12/10/16 12/11/16 12/12/16 04:20 04:43 04:39 Red Blood Count 3.18 MIL/MM3 3.38 MIL/MM3 (4.00-5.30) (4.00-5.30) Hemoglobin 10.0 GM/DL 10.8 GM/DL (11.6-15.3) (11.6-15.3) Hematocrit 30.5 % 32.2 % (35.0-46.0) (35.0-46.0) Red Cell Distribution Width 20.4 % 20.6 % (11.6-17.2) (11.6-17.2) Potassium Level 3.4 MEQ/L 3.3 MEQ/L (3.5-5.1) (3.5-5.1) Chloride Level 108 MEQ/L (98-107) Estimat Glomerular Filtration 82 ML/MIN (>89) 79 ML/MIN (>89) Rate Calcium Level 6.7 MG/DL 6.6 MG/DL 6.9 MG/DL (8.5-10.1) (8.5-10.1) (8.5-10.1) Protein Corrected Calcium 8.4 MG/DL 8.1 MG/DL 8.2 MG/DL (8.5-10.1) (8.5-10.1) (8.5-10.1) Total Protein 3.9 GM/DL 4.2 GM/DL 4.6 GM/DL (6.4-8.2) (6.4-8.2) (6.4-8.2) Sodium Level 135 MEQ/L (136-145) Imaging Last Impressions Cyst Biopsy Asp-Paracentesis US 12/11/16 0000 Signed Impressions: Service Date/Time: Sunday, December 11, 2016 10:56 - CONCLUSION: Uncomplicated ultrasound guided paracentesis. Ty Desir MD Abdomen/Pelvis CT 12/08/16 1707 Signed Impressions: Service Date/Time: Thursday, December 08, 2016 17:38 - CONCLUSION: 1. Small bowel obstruction similar in appearance to September 2016. 2. Moderate ascites also similar to September 2016. No free air. Lung bases clear. Alban aFrris MD PE at Discharge O. CONSTITUTIONAL/GEN: normally nourished, Pleasant and interactive. LUNGS: clear anteriorly, respiratory effort is normal. CARDIOVASCULAR: RR without murmur or gallop. No significant edema. GI/ABD: Protuberant, vaguely tender to palpation, firm NEURO: No focal deficits. SKIN: color pale, no rashes noted. HEME/LYMPH: no bruising, petechia or significant adenopathy MUSC: Extremities are normal in appearance. PSYCH/MENTAL STATUS: Alert and oriented x 3. Pt Condition on Discharge: Stable Discharge Disposition: Discharge Home Discharge Instructions DIET: Follow Instructions for: As Tolerated, No Restrictions Activities you can perform: Regular-No Restrictions Follow up Referrals: [facility] - 1 Week New Medications: 3-in-1 Commode (3-in-1 Commode) 1 Mis Mis UNITS #1 Ondansetron Liq (Zofran Liq) 4 Mg/5 Ml Soln 4 MG PO Q6H PRN NAUSEA OR VOMITING #60 Ref 3 ML Clonazepam (Klonopin) 0.5 Mg Tab 0.5 MG PO Q12HR PRN ANXIETY #60 Ref 5 TAB Charity Carmichael MD 12/13/16 1152: Discharge Summary CBC/BMP: 12/11/16 0443 12/12/16 0439 Discharge Instructions Follow up Referrals: [facility] - 1 Week New Medications: 3-in-1 Commode (3-in-1 Commode) 1 Mis Mis UNITS #1 Ondansetron Liq (Zofran Liq) 4 Mg/5 Ml Soln 4 MG PO Q6H PRN NAUSEA OR VOMITING #60 Ref 3 ML Clonazepam (Klonopin) 0.5 Mg Tab 0.5 MG PO Q12HR PRN ANXIETY #60 Ref 5 TAB Bennie Trivedi MD R2 Dec 12, 2016 16:04 Charity Carmichael MD Dec 13, 2016 11:52
[2016-12-12 20:00] VITALS: BP 99/69; PULSE 115; RESP 17; TEMP 98; O2SAT 98
[2016-12-13] VITALS: BP 104/81; PULSE 111; RESP 17; TEMP 97; O2SAT 97
[2016-12-13 04:00] VITALS: BP 95/59; PULSE 104; RESP 17; TEMP 97.5; O2SAT 97
[2016-12-13] MEDS: HEPARIN SODIUM - SQ 10,000 UNITS/ML VIAL SQ SCH ×2 (04:13→12:32)
[2016-12-13] MEDS: ONDANSETRON HCL 4 MG/2 ML VIAL IV PRN (04:16)
[2016-12-13 07:50] VITALS: BP 103/66; PULSE 99; RESP 20; TEMP 96; O2SAT 99
[2016-12-13] MEDS: PANTOPRAZOLE SODIUM 40 MG VIAL IVP SCH (08:32)
[2016-12-13] MEDS: clonazePAM 0.5 MG TAB PO SCH (08:32)
--- NOTE | 2016-12-13 10:29 | PD.ONC.PN ---
Subjective Subjective Remarks pt sitting up in bed with family at bedside states she feels much better today, she has not had any further nausea or vomiting she had BM yesterday evening and slept well last night she is still only drinking fluids has not tried solid foods feels ready to go home today Objective Data Date Time Temp Pulse Resp B/P Pulse Ox O2 Delivery O2 Flow Rate FiO2 12/13/16 07:50 96.0 99 20 103/66 99 12/13/16 04:00 97.5 104 17 95/59 97 12/13/16 00:00 97.0 111 17 104/81 97 12/12/16 20:00 98.0 115 17 99/69 98 12/12/16 15:50 96.7 114 20 94/66 96 12/12/16 11:50 96.2 109 20 100/73 97 Result Diagram: 12/11/16 0443 12/12/16 0439 Administered Medications Medications (Trade) Dose Ordered Sig/Rodger Route PRN Reason Start Time Stop Time Status Last Admin Dose Admin IV Flush (NS Flush) 2 ml UNSCH PRN IVF FLUSH AFTER USING IV ACCESS 12/08/16 17:15 12/12/16 08:48 Ondansetron HCl (Zofran Inj) 4 mg Q6H PRN IV NAUSEA 12/08/16 19:15 12/13/16 04:16 Pantoprazole Sodium (Protonix Inj) 40 mg DAILY IVP 12/09/16 09:00 12/13/16 08:32 Heparin Sodium (Porcine) (Heparin Inj) 5,000 units Q8H SQ 12/08/16 21:00 12/13/16 04:13 Clonazepam (KlonoPIN) 0.5 mg Q12HR PO 12/10/16 12:00 12/13/16 08:32 Objective Remarks GENERAL: frail, well-developed patient. SKIN: Warm and dry. HEAD: Normocephalic. EYES: No scleral icterus. No injection or drainage. NEUROLOGICAL: No obvious focal deficit. Awake, alert, and oriented x3. PSYCHIATRIC: Appropriate mood and affect; insight and judgment normal. Assessment/Plan Problem List: (1) SBO (small bowel obstruction) Status: Chronic Plan: Pt much improved today +BM and no further nausea or vomiting SBO likely d/t carcinomatosis and worsening disease. (2) Ovarian cancer Status: Chronic Plan: Despite multiple lines of IV chemotherapy pt has had increasing [id number] and required more frequent paracentesis. pt has PET/CT scheduled for Saturday12/14/16 follow up appt scheduled for 12/19/16. based on results may choose supportive care with Hospice. Attending Statement Mrs. Murphy was seen by both myself and Dr. Phillip this morning and he is in agreement. Problem Qualifiers (1) Ovarian cancer: Qualified Code: C56.9 - Ovarian cancer, unspecified laterality Ted Huerta Dec 13, 2016 10:29
--- NOTE | 2016-12-13 11:34 | HHI.FPPN ---
Subjective Remarks No acute events overnight. Vital signs remained stable. Patient states she is ready go home. She endorses her anxiety is well controlled and denies current abdominal pain. She is currently advancing her diet slowly. She's not had any nausea or vomiting. (Nathan Coelho MD R3) Objective Vitals Vital Signs Date Time Temp Pulse Resp B/P Pulse Ox O2 Delivery O2 Flow Rate FiO2 12/13/16 07:50 96.0 99 20 103/66 99 12/13/16 04:00 97.5 104 17 95/59 97 12/13/16 00:00 97.0 111 17 104/81 97 12/12/16 20:00 98.0 115 17 99/69 98 12/12/16 15:50 96.7 114 20 94/66 96 12/12/16 11:50 96.2 109 20 100/73 97 I/O 12/12/16 12/12/16 12/12/16 12/13/16 12/13/16 12/13/16 07:00 15:00 23:00 07:00 15:00 23:00 Intake Total 240 ml 360 ml Balance 240 ml 360 ml Intake Oral 240 ml 360 ml IV Total 0 ml # Voids 2 2 3 # Bowel Movements 1 2 (Nathan Coelho MD R3) Result Diagram: 12/11/16 0443 12/12/16 0439 Objective Remarks GEN: normally nourished, Pleasant and interactive. LUNGS: clear anteriorly, respiratory effort is normal. CARDIOVASCULAR: RR without murmur or gallop. No significant edema. GI/ABD: Protuberant, NTTP, firm NEURO: No focal deficits. SKIN: color pale, no rashes noted. HEME/LYMPH: no bruising, petechia or significant adenopathy MUSC: Extremities are normal in appearance. PSYCH/MENTAL STATUS: Alert and oriented x 3. Procedures Patient was admitted for a small bowel obstruction on 12/08/16. She has a history of ovarian cancer with metastasis and currently on a chemotherapy break. The obstruction is believed to be caused by the metastatic cancer. During the hospitalization the patient had a discussion with Hospice. She decided that she will wait for her PET scan that is scheduled for 12/14/16. During this hospitalization the SBO improved and she started to have multiple bowel movements and tolerated a PO diet. On 12/12/16 after several discussion she agreed with going home as she can manage her nausea with PO medications. She will continue to follow up with her [facility] oncologist and hospice as an outpatient as she makes further plans of care. (Nathan Coelho MD R3) A/P Assessment and Plan This is 76-year-old, female with past medical history significant for ovarian cancer currently on a break from chemotherapy. Admitted for small bowel obstruction. Discharge Planning Anticipate discharge to home today (Nathan Coelho MD R3) Attending Attestation Patient seen and examined. Case reviewed and discussed with the resident team. Agree with plan of care as discussed with me and documented in the resident note. (Charity Carmichael MD) Problem List: (1) SBO (small bowel obstruction) Status: Chronic Plan: CT on admission showed a small bowel obstruction. Likely related to underlying metastatic disease. Now asymptomatic. No nausea/vomiting and is passing stools. * GI consulted-> currently non-surgical * Advance diet as tolerated * Zofran 4mg PO prn * Cleared for discharge to home (2) Malignant ascites Status: Chronic Plan: Frequent paracentesis for malignant ascites, lately has requied them every week. * S/p last most recent paracentesis 12/11/16 * See plan below (3) Ovarian cancer Status: Chronic Plan: Patient has stage IV ovarian cancer treated with surgery and chemotherapy. Has had 2 colectomies. * Hospice consulted-- wishes to wait for results of PET scan on Saturday12/14/16 before making any further decision. * PET/CT outpatient this Saturday * Outpatient follow-up with Dr. Phillip on Saturday to discuss PET and plan going forward (4) Severe muscle deconditioning Status: Chronic Plan: -Continue PT (5) Nutrition, metabolism, and development symptoms Status: Acute Plan: Full liquid diet Monitor lytes, replace accordingly Vitals every 4 Bedside commode CODE STATUS: Full code sdw Dr. Amol MD (Nathan Coelho MD R3) Problem Qualifiers (1) Ovarian cancer: Qualified Code: C56.9 - Ovarian cancer, unspecified laterality Nathan Coelho MD R3 Dec 13, 2016 11:34 Charity Carmichael MD Dec 13, 2016 14:34
[2016-12-13 11:57] VITALS: BP 112/71; PULSE 103; RESP 20; TEMP 96.1; O2SAT 98
== END 2016-12-13 16:06 | disposition home or self-care (01) | DRG 389 ==
LOC: NEPE 16:42 → NEDA 18:32 → HOCB 23:30
PROVIDERS: ADMIT Family Medicine; ATTEND Family Medicine
PROC: 0W9G3ZZ Drainage of Peritoneal Cavity, Percutaneous Approach (ICD-10-PCS; principal; 2016-12-11)
DX: K56.60 Unspecified intestinal obstruction (principal); R18.0 Malignant ascites; R64 Cachexia; C56.9 Malignant neoplasm of unspecified ovary; I10 Essential (primary) hypertension; F41.9 Anxiety disorder, unspecified; Z51.5 Encounter for palliative care; Z85.3 Personal history of malignant neoplasm of breast; Z92.21 Personal history of antineoplastic chemotherapy
CPT/HCPCS: 49083; 74176; 80048; 80053; 83690; 84155; 85025; 85027; 85610; 86850; 86900; 86901; 87205; 87328; 87329; 87506; 96374; C1729; C9113; J1644; J2405; J3480; J7030

== ENCOUNTER 2016-12-17 10:12 | Day surgery (SDC) | payer MEDICARE ==
[~2016-12-17 10:12] MED LIST changes: +3-IN3MIS; +CLON.5 PO; -LISI10TA3 PO; -MACR100C2 PO; -PACLPB100P; +ZOFR4SOL PO
[2016-12-17 10:38] VITALS: BP 122/80; PULSE 109; RESP 14; TEMP 97; O2SAT 100
[2016-12-17] MEDS ORDERED: BUPIVACAINE HCL PF 0.75% 10 ML VIAL ONE ×2 (10:57→11:42)
[2016-12-17] MEDS ORDERED: ALBUMIN HUMAN 25% 25 GM/100 ML BAGP IV ONE (11:15)
[2016-12-17 11:40] VITALS: BP 102/63; PULSE 103; RESP 18; TEMP 97.6; O2SAT 95
--- NOTE | 2016-12-17 12:31 | RADRPT ---
EXAM DATE/TIME: 12/17/2016 10:30 [facility] COMPARISON: US GUIDED ABD PARACENTESIS, December 11, 2016, 10:56. INDICATIONS : Ascites. MEDICAL HISTORY : Hypertension. Breast cancer. Ovarian cancer. SURGICAL HISTORY : Cataract. Chemotherapy. Paracentesis. ENCOUNTER: [facility] ACUITY: 1 day PAIN SCORE: 0/10 LOCATION: Right side. FLUID: Total volume of 2200 of clear, yellow fluid was removed. Fluid was discarded. Paracentesis was therapeutic only. Post procedure scanning reveals no hematoma or other complication. TECHNIQUE: 1. Ultrasound guidance for abdominal paracentesis. 2. Paracentesis. The risks, benefits, and alternatives to ultrasound guided paracentesis were explained to the patient in detail including the risk of bleeding and infection. Written and verbal informed consent was obt ained. With the patient on the ultrasound table, ultrasound imaging was used to select the most appropriate approach for paracentesis. Overlying skin was prepped and draped in the usual sterile fashion and wi th a local anesthetic, a dermatotomy was made with an 11 blade scalpel. A 6 German [id number] ca theter was introduced into the peritoneal cavity and fluid was collected. The patient tolerated the procedure well and left the ultrasound suite in stable condition. CONCLUSION: Uncomplicated ultrasound guided paracentesis. Roddy Lamb MD FACR on December 17, 2016 at 12:06 Board Certified Radiologist. This report was verified electronically.
[2016-12-17] MEDS ORDERED: Infusaport/Implanted VAD PRN NS Lock Flush IVF (12:45)
== END 2016-12-17 13:00 | disposition home or self-care (01) ==
LOC: HRAD 10:12 → HRIP 11:45 → HRAD 13:00
PROVIDERS: ATTEND Obstetrics & Gynecology Gynecologic Oncology
DX: R18.8 Other ascites (principal); I10 Essential (primary) hypertension; Z85.43 Personal history of malignant neoplasm of ovary
CPT/HCPCS: 49083; C1729; J1642; P9047

== ENCOUNTER 2016-12-24 21:25 | Inpatient (IN) | payer MEDICARE ==
[~2016-12-24] VITALS: Ht 170.2 cm; Wt 89.0 kg
[2016-12-24] MEDS ORDERED: SODIUM CHLOR 0.9% 1000 ML INJ 100 ML IV ONE (21:40)
[2016-12-24] MEDS ORDERED: SODIUM CHLOR 0.9% 1000 ML INJ 1,000 ML IV ONE ×3 (21:40→23:30)
[2016-12-24] MEDS ORDERED: VANCOMYCIN INJ 1,000 MG in SODIUM CHLOR 0.9% 250 ML INJ 250 ML IV ONE (21:45)
[2016-12-24] MEDS ORDERED: PIPERACIL-TAZO 3.375 GM PREMIX 50 ML IV ONE (21:45)
--- NOTE | 2016-12-24 21:45 | PD ---
HPI Chief Complaint: lethargy Time Seen by Provider: 21:28 Travel History International Travel<30 days: No Contact w/Intl Traveler<30days: No Traveled to known affect area: No History of Present Illness HPI The patient is a 76 year old female who presents to the [facility] emergency department with a history of reported lethargy the last 2 days. 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 The patient herself is unable to provide any significant history. She has generalized weakness and is able to answer some questions, however she is extremely quiet and difficult to understand. The patient is aware that she is at the hospital. She reports that she has not been eating or drinking well. Review of the electronic medical record reveals that she was just admitted earlier in the month for a small bowel obstruction. According to the record, the patient was considering hospice care pending the results of the PET scan that she had earlier in the month. The patient reports having abdominal pain and distention currently. The patient arrives by ambulance services with a blood sugar that is reportedly normal. The patient was noted to be hypotensive prior to arrival with systolic blood pressure in the 70s, heart rate in the 140s. No IV access was able to be obtained prior to arrival. The patient's family arrives at the bedside and reports that since being discharged approximately a week ago she has not been eating or drinking well. She has not been experiencing any vomiting over the last 1-2 days, however she has had nausea. They became concerned when she was becoming less and less alert , therefore ambulance services were called. 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 Cancer: Yes (RIGHT BREAST/ OVARIAN) Cardiovascular Problems: No Chemotherapy: Yes (09/21/16) Diabetes: No Endocrine: No Genitourinary: No Hepatitis: No Hiatal Hernia: No Hypertension: Yes Immune Disorder: No Implanted Vascular Access Dvce: Yes (L PORT ) Musculoskeletal: Yes (ARTHRITIS, BONE PAIN FROM NEULASTA) Neurologic: Yes (NEUROPATHY FEET/ HANDS (CHEMO)) Psychiatric: No Reproductive: Yes (OVARIAN CANCER) Respiratory: No Thyroid Disease: No Past Surgical History Narrative Surgical The patient's past surgical history is significant for Rgazzl-l-Tjar placement, PARACENTESIS, OMENTAL BX, HYSTERECTOMY/BSO, bilateral cataract surgery. Abdominal Surgery: Yes (COLON RESECTION) AICD: No Cardiac Surgery: No Ear Surgery: No Endocrine Surgery: No Eye Surgery: Yes (BENJA. CATARACT EXTRACT.) Genitourinary Surgery: No Gynecologic Surgery: Yes (PARACENTESIS, OMENTAL BX, HYSTERECTOMY/BSO) Hysterectomy: Yes Joint Replacement: No Oral Surgery: No Pacemaker: No Thoracic Surgery: No Other Surgery: Yes (RIGHT BREAST LUMPECTOMY) Social History Alcohol Use: Yes Tobacco Use: No Substance Use: No Allergies-Medications (Allergen,Severity, Reaction): Coded Allergies: *MDRO Multi-Drug Resistant Organism (Verified Adverse Reaction, Unknown, ) ESBL E. coli (urine) - 08/27/16 Reported Meds & Prescriptions Reported Meds & Active Scripts Active Zofran Liq (Ondansetron HCl) 4 Mg/5 Ml Soln 4 Mg PO Q6H PRN 3-in-1 Commode (Device) 1 Mis Mis Units Klonopin (Clonazepam) 0.5 Mg Tab 0.5 Mg PO Q12HR PRN Review of Systems Except as stated in HPI: all other systems reviewed are Neg General / Constitutional: No: Fever Eyes: No: Visual changes HENT: No: Headaches Cardiovascular: No: Chest Pain or Discomfort Respiratory: No: Shortness of Breath Gastrointestinal: Positive: Nausea, Abdominal Pain, Loss of Appetite, No: Vomiting Genitourinary: No: Dysuria Musculoskeletal: No: Pain Skin: No Rash Neurologic: Positive: Weakness (generalized weakness), Change in Mentation ( decreased level), No: Focal Abnormalities, Slurred Speech, Sensory Disturbance Psychiatric: No: Depression Endocrine: No: Polydipsia Hematologic/Lymphatic: No: Easy Bruising Physical Exam Narrative General: The patient is a well-developed ill-appearing female, decreased level of consciousness, generalized weakness noted on examination. Head and Neck exam: Head is normocephalic atraumatic. Eyes: Pupils are equal round and reactive to light. Nose: Midline septum with pink mucous membranes Mouth: Dentition unremarkable. Dry mucus membranes. Posterior oropharynx is not erythematous. No tonsillar hypertrophy. Uvula midline. Airway patent. Neck: No palpable lymphadenopathy. No nuchal rigidity. No thyromegaly. Cardiovascular: Sinus tachycardia in the 140s on arrival without murmurs, gallops, or rubs. Lungs: Clear to auscultation bilaterally. No wheezes, rhonchi, or rales. Abdomen: Distended with a positive fluid wave and generalized tenderness on palpation. No guarding, rebound, or rigidity. Decreased bowel sounds are audible. Extremities: No clubbing or cyanosis. The patient has 1+ pitting edema bilateral lower extremities. She has less than 3 second capillary refill. She has diminished pulses in her extremities related to hypotension. Back: No spinous process tenderness to palpation. No costovertebral angle tenderness to palpation. Neurologic Exam: The patient is lethargic on examination. She is having difficulty moving all extremities equally. She has 3 over 5 strength of all 4 extremities. She has intact sensation over all dermatomes. She is oriented to person and place, however not time or situation. She has difficulty following commands due to weakness. Skin Exam: No rash noted. Intact skin that is warm and dry. She has poor skin turgor. Data Data Last Documented VS Vital Signs Date Time Temp Pulse Resp B/P Pulse Ox O2 Delivery O2 Flow Rate FiO2 12/24/16 23:22 111 25 96 Nasal Cannula 3 12/24/16 23:21 77/42 12/24/16 22:30 97.5 Orders Electrocardiogram (12/24/16 21:40) Complete Blood Count With Diff (12/24/16 21:40) Comprehensive Metabolic Panel (12/24/16 21:40) Prothrombin Time / Inr (Pt) (12/24/16 21:40) Act Partial Throm Time (Ptt) (12/24/16 21:40) Lactic Acid Sepsis Protocol (12/24/16 21:40) Magnesium (Mg) (12/24/16 21:40) Lipase (12/24/16 21:40) Ckmb (Isoenzyme) Profile (12/24/16 21:40) Troponin I (12/24/16 21:40) Urinalysis - C+S If Indicated (12/24/16 21:40) Blood Culture (12/24/16 21:40) Chest, Single Ap (12/24/16 21:40) Blood Glucose (12/24/16 21:40) Ecg Monitoring (12/24/16 21:40) Iv Access Insert/Monitor (12/24/16 21:40) Oximetry (12/24/16 21:40) Oxygen Administration (12/24/16 21:40) Urinary Catheter Insert/Apply (12/24/16 21:40) Sodium Chlor 0.9% 1000 Ml Inj (Ns 1000 M (12/24/16 21:40) Sodium Chlor 0.9% 1000 Ml Inj (Ns 1000 M (12/24/16 21:40) Sodium Chlor 0.9% 1000 Ml Inj (Ns 1000 M (12/24/16 21:40) Vancomycin Inj (Vancomycin Inj) (12/24/16 21:45) Piperacil-Tazo 3.375 Gm Premix (Zosyn 3. (12/24/16 21:45) Ondansetron Inj (Zofran Inj) (12/24/16 22:45) Urine Culture (12/24/16 22:00) Sodium Chlor 0.9% 1000 Ml Inj (Ns 1000 M (12/24/16 23:30) Calcium Gluconate Inj (Calcium Gluconate (12/24/16 23:45) Admit Order (Ed Use Only) (12/24/16 23:47) Labs Laboratory Tests Test 12/24/16 12/24/16 22:00 22:51 Urine Color YELLOW Urine Turbidity CLOUDY Urine pH 6.0 Urine Specific [place] 1.025 Urine Protein 100 mg/dL Urine Glucose (UA) NEG mg/dL Urine Ketones NEG mg/dL Urine Occult Blood MOD Urine Nitrite NEG Urine Bilirubin NEG Urine Urobilinogen LESS THAN 2.0 MG/DL Urine Leukocyte Esterase LARGE Urine RBC 131 /hpf Urine WBC /hpf Urine WBC Clumps MANY Urine Renal Epithelial Cells 41 /hpf Urine Bacteria MOD /hpf Urine Hyaline Casts 36 /lpf Urine Mucus FEW /lpf Microscopic Urinalysis Comment CATH-CULTURE IND Prothrombin Time 14.7 SEC Prothromb Time International 1.3 RATIO Ratio Activated Partial 44.4 SEC Thromboplast Time Sodium Level 140 MEQ/L Potassium Level 4.0 MEQ/L Chloride Level 108 MEQ/L Carbon Dioxide Level 19.3 MEQ/L Anion Gap 13 MEQ/L Blood Urea Nitrogen 26 MG/DL Creatinine 1.32 MG/DL Estimat Glomerular Filtration 39 ML/MIN Rate Random Glucose 71 MG/DL Calcium Level 6.1 MG/DL Protein Corrected Calcium 8.3 MG/DL Magnesium Level 1.1 MG/DL Total Bilirubin 0.3 MG/DL Aspartate Amino Transf 16 U/L (AST/SGOT) Alanine Aminotransferase 11 U/L (ALT/SGPT) Alkaline Phosphatase 160 U/L Total Creatine Kinase 20 U/L Troponin I 0.03 NG/ML Total Protein 2.9 GM/DL Albumin 0.8 GM/DL Lipase 27 U/L White Blood Count 7.2 TH/MM3 Red Blood Count 3.13 MIL/MM3 Hemoglobin 10.0 GM/DL Hematocrit 29.7 % Mean Corpuscular Volume 94.9 FL Mean Corpuscular Hemoglobin 31.9 PG Mean Corpuscular Hemoglobin 33.7 % Concent Red Cell Distribution Width 18.5 % Platelet Count 38 TH/MM3 Mean Platelet Volume 8.6 FL Neutrophils (%) (Auto) 95.0 % Lymphocytes (%) (Auto) 3.2 % Monocytes (%) (Auto) 1.7 % Eosinophils (%) (Auto) 0.0 % Basophils (%) (Auto) 0.1 % Neutrophils # (Auto) 6.8 TH/MM3 Lymphocytes # (Auto) 0.2 TH/MM3 Monocytes # (Auto) 0.1 TH/MM3 Eosinophils # (Auto) 0.0 TH/MM3 Basophils # (Auto) 0.0 TH/MM3 CBC Comment AUTO DIFF Differential Total Cells 100 Counted Neutrophils % (Manual) 56 % Band Neutrophils % 24 % Lymphocytes % 1 % Monocytes % 1 % Neutrophils # (Manual) 7.1 TH/MM3 Metamyelocytes 18 % Differential Comment FINAL DIFF MANUAL Toxic Granulation 1+ Toxic Vacuolation PRESENT Platelet Estimate LOW Platelet Morphology Comment NORMAL [place] Cells 1+ Acanthocytes OCC Lactic Acid Level 3.7 mmol/L Prealbumin LESS THAN 3 MG/DL MDM Medical Decision Making Medical Screen Exam Complete: Yes Emergency Medical Condition: Yes Medical Record Reviewed: Yes Interpretation(s) Laboratory Tests Test 12/24/16 12/24/16 22:00 22:51 Urine Turbidity CLOUDY (CLEAR) Urine Protein 100 mg/dL (NEG-TRACE) Urine Occult Blood MOD (NEG) Urine Leukocyte Esterase LARGE (NEG) Urine RBC 131 /hpf (0-3) Urine WBC Clumps MANY (NONE) Urine Bacteria MOD /hpf (NONE) Urine Mucus FEW /lpf (OCC) Prothrombin Time 14.7 SEC (9.8-11.6) Activated Partial 44.4 SEC Thromboplast Time (24.3-30.1) Chloride Level 108 MEQ/L (98-107) Carbon Dioxide Level 19.3 MEQ/L (21.0-32.0) Blood Urea Nitrogen 26 MG/DL (7-18) Creatinine 1.32 MG/DL (0.50-1.00) Estimat Glomerular Filtration 39 ML/MIN (>89) Rate Random Glucose 71 MG/DL (74-106) Calcium Level 6.1 MG/DL (8.5-10.1) Protein Corrected Calcium 8.3 MG/DL (8.5-10.1) Magnesium Level 1.1 MG/DL (1.5-2.5) Alkaline Phosphatase 160 U/L (45-117) Total Creatine Kinase 20 U/L (26-192) Total Protein 2.9 GM/DL (6.4-8.2) Albumin 0.8 GM/DL (3.4-5.0) Lipase 27 U/L (73-393) Red Blood Count 3.13 MIL/MM3 (4.00-5.30) Hemoglobin 10.0 GM/DL (11.6-15.3) Hematocrit 29.7 % (35.0-46.0) Red Cell Distribution Width 18.5 % (11.6-17.2) Platelet Count 38 TH/MM3 (150-450) Neutrophils (%) (Auto) 95.0 % (16.0-70.0) Lymphocytes (%) (Auto) 3.2 % (9.0-44.0) Lymphocytes # (Auto) 0.2 TH/MM3 (1.0-4.8) Band Neutrophils % 24 % (0-6) Lymphocytes % 1 % (9-44) Metamyelocytes 18 % (0-1) Toxic Granulation 1+ (NORMAL) Toxic Vacuolation PRESENT (NONE SEEN) Platelet Estimate LOW (NORMAL) [place] Cells 1+ (NORMAL) Acanthocytes OCC (NORMAL) Lactic Acid Level 3.7 mmol/L (0.4-2.0) Prealbumin LESS THAN 3 MG/DL (20-40) Last Impressions Chest X-Ray 12/24/16 2130 Signed Impressions: Service Date/Time: Saturday, December 24, 2016 22:49 - CONCLUSION: 1. Jxwkkc-[id number]-Ylnn and right central line in superior vena cava. Basal airspace disease in the lungs. No pneumothorax. Alban Farris MD Differential Diagnosis Profound dehydration with hypotension, versus septic shock, versus electrolyte abnormality, versus acute renal failure Narrative Course During the course of the patients emergency department visit, the patients history, examination, and differential diagnosis were reviewed with the patient. The patient had her Hvbllp-x-Aown access. The patient had a liter of normal saline placed on a pressure bag, however it was clear that additional lines were necessary for fluid resuscitation as the patient's blood pressure was extremely low. The patient was otherwise very difficult to obtain IV access and. Multiple attempts were made at ultrasound-guided access which was not successful. Additionally, I attempted to place an external jugular IV in the left side of the patient's neck, however this was not successful and the line blue. Pressure was held. The patient was prepared for placement of a right-sided internal jugular central line. The patient was placed on a premium service representative with oximetry and blood pressure monitoring. The patient had an EKG done on arrival. The patient's EKG showed a sinus tachycardia rate of 130, no acute ST segment elevation is noted. No acute ST segment depression. Low QRS voltage is noted. The patient was provided a 30 mL per KG IV fluid bolus. The patient was given vancomycin 1 g IV, Zosyn 3.37 g IV for suspected sepsis of undetermined origin. After the 30 mL per KG IV fluid bolus the patient was persistently hypotensive. The patient's internal jugular vein central line was placed by id and Levophed was started. The patients laboratory studies were reviewed and remarkable for a white count of 7.2, hemoglobin 10, platelets 38, neutrophils 56, bands 24, lymphocytes 1, toxic vacuolation is present. CMP is remarkable for chloride of 108, CO2 19.3, BUN 26, creatinine 1.32, glucose 71, calcium 6.1, the patient was provided calcium gluconate 1 g IV, alkaline phosphatase 160, CPK 20, troponin I 0.03, lipase 27. Lactic acid is 3.7, PT 14.7, INR 1.3, PTT 44.4, urinalysis shows 100 protein, moderate occult blood, large leukocyte esterase, RBCs 131, wbc's enumerable, many clumps, moderate bacteria. This was catheterized specimen. This will be cultured. Radiology studies were reviewed and remarkable for a chest x-ray that shows an Tsxpge-c-Djzc and a right central line in the superior vena cava, basal airspace disease in the lungs, no pneumothorax. The patient's case was discussed with the cycle consultant on-call, Dr. Mei who did come into the emergency department and evaluate the patient for admission. The patients results were discussed with the patient, including the plan of care. I explained that further testing and/ or monitoring is indicated based on the patients history, examination, and/ or laboratory findings. Therefore, I recommended admission for additional evaluation. The patient expressed understanding and was agreeable with this plan. The patient was admitted to the hospital in critical condition and sent to a bed under the care of the cycle consultant. Critical Care Narrative Aggregate critical care time was 42 minutes. Time to perform other separately billable procedures was not included in the critical care time. My time did not include minutes spent treating any other patients simultaneously or on activities that did not directly contribute to the patient's treatment. The services I provided to this patient were to treat and/or prevent clinically significant deterioration that could result in: Cardiovascular collapse, versus cardiac arrhythmia, versus respiratory failure I provided critical care services requiring my management, as noted below: Chart data review, documentation time, medication orders and management, vital sign assessments/reviewing monitor data, ordering and reviewing lab tests, ordering and interpreting/reviewing x-rays and diagnostic studies, care of the patient and discussion of the patient with the admitting physicians. Procedures Procedure Narrative CENTRAL VENOUS LINE: The site was prepped with Betadine and sterilely draped. It was infiltrated with 1% lidocaine plain. The deep vein was cannulated using normal Seldinger technique. A triple lumen central line was placed in the right internal jugular vein site and secured with simple interrupted suture. The site was sterilely dressed. The patient tolerated the procedure well. Sepsis Criteria SIRS Criteria (2 or more): Heart rate over 90, RR > 20 or PaCO2 < 32, WBC > 23374, < 4000 or > 10% bands Sepsis Criteria (SIRS+source): Infect source susp/known Severe Sepsis (+one): Lactate >2 Septic Shock Criteria: Unresponsive to 30ml/kg fluid bolus Criteria Outcome: Meets SIRS criteria, Meets sepsis criteria, Meets severe sepsis criteria, Meets septic shock criteria Diagnosis Primary Impression: Sepsis Qualified Code: A41.9 - Sepsis, due to unspecified organism Additional Impression: Abdominal pain Qualified Code: R10.84 - Generalized abdominal pain Admitting Information Admitting Physician Requests: Admit Vianca Salazar MD Dec 24, 2016 21:45
[2016-12-24 22:30] VITALS: BP_SYST 78; PULSE 130; RESP 25; TEMP 97.5; O2SAT 91
[2016-12-24] MEDS ORDERED: ONDANSETRON HCL 4 MG/2 ML VIAL IV ONE (22:45)
[2016-12-24 23:04] LABS: AUTOMATED NEUTROPHIL # 6.8 TH/MM3 (1.8-7.7); BASOPHIL % 0.1 % (0.0-2.0); HEMATOCRIT 29.7 % (35.0-46.0); LYMPH % 3.2 % (9.0-44.0); LYMPHOCYTE # 0.2 TH/MM3 (1.0-4.8); MEAN CELL VOLUME 94.9 FL (80.0-100.0); MEAN CORPUSCULAR HEMOGLOBIN 31.9 PG (27.0-34.0); MEAN CORPUSCULAR HGB CONC 33.7 % (32.0-36.0); MONO % 1.7 % (0.0-8.0); PLATELET COUNT 38 TH/MM3 (150-450); RED BLOOD COUNT 3.13 MIL/MM3 (4.00-5.30); RED CELL DISTRIBUTION WIDTH 18.5 % (11.6-17.2); WHITE BLOOD COUNT 7.2 TH/MM3 (4.0-11.0)
[2016-12-24 23:06] VITALS: BP 88/51; PULSE 116; RESP 25; O2SAT 96
[2016-12-24 23:18] LABS: APTT (PATIENT) 44.4 SEC (24.3-30.1); INTERNATIONAL NORMALIZED RATIO 1.3 RATIO; PROTHROMBIN TIME - PATIENT 14.7 SEC (9.8-11.6)
--- NOTE | 2016-12-24 23:19 | RADRPT ---
EXAM DATE/TIME: 12/24/2016 22:49 [place] COMPARISON: No previous studies available for comparison. INDICATIONS : Central line placement. MEDICAL HISTORY : Hypertension. Breast cancer. Ovarian cancer. SURGICAL HISTORY : Chemotherapy. ENCOUNTER: Initial ACUITY: 1 day PAIN SCORE: 3/10 LOCATION: Bilateral chest FINDINGS: A single view of the chest demonstrates right central line in superior vena cava. Hzdwks-q-Shvr tip a lso in superior vena cava. Basilar air space disease in the lungs with trace left pleural fluid. No p neumothorax. Heart size mildly enlarged. Surgical clips right axillary region. CONCLUSION: 1. Sqmxhj-g-Afgx and right central line in superior vena cava. Basal airspace disease in the lungs. N o pneumothorax. Alban Farris MD on December 24, 2016 at 23:09 Board Certified Radiologist. This report was verified electronically.
[2016-12-24 23:21] VITALS: BP 77/42; PULSE 111; RESP 15; O2SAT 96
[2016-12-24 23:21] LABS: BACTERIA, URINE MOD /hpf; BLOOD, URINE MOD (NEG); GLUCOSE,URINE NEG (NEG); HYALINE CAST, URINE 36 /lpf (RARE); KETONE, URINE NEG (NEG); MUCUS URINE FEW /lpf (OCC); NITRITE,URINE NEG (NEG); RENAL EPITHELIAL CELLS 41 /hpf; URINE COLOR YELLOW (YELLW/STRAW)
[2016-12-24 23:23] LABS: COMMENT (UR) CATH-CULTURE IND; CULTURE IF INDICATED CATH CULTURE IND
[2016-12-24 23:25] LABS: BICARBONATE 19.3 MEQ/L (21.0-32.0); MAGNESIUM 1.1 MG/DL (1.5-2.5)
[2016-12-24 23:30] LABS: CALCIUM-PROTEIN CORRECTED 8.3 MG/DL (8.5-10.1); TOTAL BILIRUBIN ADULT 0.3 MG/DL (0.2-1.0)
[2016-12-24 23:40] LABS: HEMO FLAGS AUTO DIFF
[2016-12-24] MEDS ORDERED: CALCIUM GLUCONATE INJ 1 GM in DEXTROSE 5% IN WATER 100ML INJ 100 ML IV ONE ×2 (23:45)
[2016-12-24 23:46] LABS: BANDS 24 % (0-6); METAMYELOCYTES 18 % (0-1); NEUTROPHIL # MANUAL DIFF 7.1 TH/MM3 (1.8-7.7); POLYS (SEG NEUTROPHILS) 56 % (16-70); WBC DIFF SAMPLE 100
[2016-12-24 23:47] LABS: PLATELET ESTIMATE SMEAR LOW (NORMAL); PLATELET MORPHOLOGY NORMAL (NORMAL); SCAN/DIFF FINAL DIFF MANUAL; TOXIC GRANULATION 1+ (NORMAL); TOXIC VACUOLATION PRESENT (NONE SEEN)
[2016-12-24 23:48] LABS: ACANTHOCYTES OCC (NORMAL); BURR CELLS 1+ (NORMAL)
[2016-12-25] VITALS (24 sets, daily range): BP systolic 64–111; BP diastolic 48–78; PULSE 106–125; RESP 12–26; TEMP 94.3–98.4; O2SAT 93–99
[2016-12-25] MEDS ORDERED: NOREPINEPHRINE 4 MG/4 ML AMP ONE (00:10)
[2016-12-25] MEDS ORDERED: TERBUTALINE INJ 1 MG/ML AMP SQ PRN ×2 (00:15→00:45)
[2016-12-25] MEDS ORDERED: NOREPINEPHRINE-DEXTROSE DRIP 250 ML IV SCH (00:15)
[2016-12-25] MEDS ORDERED: ALBUMIN HUMAN 5% 25 GM/500 ML BOTTLE IV ONE (00:45)
[2016-12-25] MEDS ORDERED: Vancomycin Consult Pharmacy 1 EA XX SCH (00:45)
[2016-12-25] MEDS ORDERED: METOCLOPRAMIDE HCL 10 MG/2 ML VIAL IV PRN (00:45)
[2016-12-25] MEDS ORDERED: ZOLPIDEM TARTRATE 5 MG TAB PO PRN (00:45)
[2016-12-25] MEDS ORDERED: ACETAMINOPHEN 325 MG TAB PO PRN (00:45)
[2016-12-25] MEDS ORDERED: SODIUM CHLORIDE 0.9% FLUSH 5 ML FLUSH IV FLUSH PRN ×2 (00:45)
[2016-12-25] MEDS ORDERED: CHLORHEXIDINE GLUCONATE 2 % 1 PACK (2 CLOTHS) TOP PRN (00:45)
[2016-12-25] MEDS ORDERED: MISCELLANEOUS NURSING INFORMATION XX SCH (00:45)
[2016-12-25] MEDS ORDERED: VANCOMYCIN INJ 1,000 MG in SODIUM CHLOR 0.9% 250 ML INJ 250 ML IV SCH (00:45)
[2016-12-25] MEDS ORDERED: RESP: ALBUTEROL 2.5 MG/IPRATROPIUM 0.5 MG NEB (PRN) INH (00:45)
--- NOTE | 2016-12-25 00:45 | HHI.HP ---
HPI Service Critical Care Medicine Primary Care Physician Silver Berry MD Admission Diagnosis Sepsis, UTI Diagnosis: Travel History International Travel<30 Days: No Contact w/Intl Traveler <30 Da: No Traveled to Known Affected Are: No History of Present Illness 76 year old female presents with a history lethargy x 2 days. She has stage IV ovarian cancer refractory to treatment, with ascites requiring weekly drainage. The patient herself is unable to provide any significant history. Per patient 's she has not been eating or drinking well. In the emergency room the patient was noted to be hypotensive prior to arrival with systolic blood pressure in the 70s, heart rate in the 140s. No IV access was able to be obtained prior to arrival and right IJ central line was placed by ER attending Review of Systems ROS Unable to obtain patient is too lethargic Past Family Social History Allergies: Coded Allergies: *MDRO Multi-Drug Resistant Organism (Verified Adverse Reaction, Unknown, ) ESBL E. coli (urine) - 08/27/16 Past Medical History Ovarian Cancer seeing Dr. Kumar Has had multiple chemotherapy regimens HTN currently not needing medications Past Surgical History Hysterectomy Two colectomies Lumpectomy Right breast for breast cancer Cataracts Reported Medications Reported Meds & Active Scripts Active Zofran Liq (Ondansetron HCl) 4 Mg/5 Ml Soln 4 Mg PO Q6H PRN 3-in-1 Commode (Device) 1 Mis Mis Units Klonopin (Clonazepam) 0.5 Mg Tab 0.5 Mg PO Q12HR PRN Active Ordered Medications Current Medications Medications (Trade) Dose Ordered Sig/Rodger Route PRN Reason Start Time Stop Time Status Last Admin Dose Admin Terbutaline Sulfate 1 mg 1 mg UNSCH PRN SQ For Extravasation 12/25/16 00:15 Sodium Chloride (NS 1000 ml Inj) 1,000 ml @ 150 mls/hr Q6H40M IV 12/25/16 00:36 12/25/16 01:19 IV Flush (NS Flush) 2 ml UNSCH PRN IV FLUSH FLUSH AFTER USING IV ACCESS 12/25/16 00:45 IV Flush (NS Flush) 2 ml BID IV FLUSH 12/25/16 09:00 Acetaminophen (Tylenol) 650 mg Q6H PRN PO PAIN 1-5 AND/OR FEVER >101F 12/25/16 00:45 Morphine Sulfate (Morphine Inj) 2 mg Q2H PRN IV PAIN SCALE 6 TO 10 12/25/16 00:45 Famotidine (Pepcid Inj) 10 mg Q12HR IV PUSH 12/25/16 09:00 Ondansetron HCl (Zofran Inj) 4 mg Q6H PRN IV NAUSEA OR VOMITING 12/25/16 00:45 Metoclopramide HCl (Reglan Inj) 10 mg Q6H PRN IV NAUSEA OR VOMITING 12/25/16 00:45 Docusate Sodium (Colace) 100 mg BID PO 12/25/16 09:00 Zolpidem Tartrate (Ambien) 5 mg HS PRN PO INSOMNIA 12/25/16 00:45 Heparin Sodium (Porcine) (Heparin Inj) 5,000 units Q8H SQ 12/25/16 01:00 Miscellaneous Information 1 Q361D XX 12/25/16 00:45 Chlorhexidine Gluconate (Chlorhexidine 2% Cloth) 3 pack Taper DAILY@04 TOP 12/25/16 04:00 12/21/17 03:59 Chlorhexidine Gluconate (Chlorhexidine 2% Cloth) 3 pack UNSCH PRN TOP HYGIENIC CARE 12/25/16 00:45 Hydrocortisone Sodium Succinate 50 mg 50 mg Q6H IV 12/25/16 01:00 Pharmacy Profile Note 0 ml @ 0 mls/hr UNSCH XX 12/25/16 00:45 Piperacillin Sod/ Tazobactam Sod 100 ml @ 200 mls/hr Q6H IV 12/25/16 06:00 Norepinephrine Bitartrate (Levophed-Dextrose Drip) 250 ml @ 0 mls/hr TITRATE IV 12/25/16 00:45 Terbutaline Sulfate 1 mg 1 mg UNSCH PRN SQ For Extravasation 12/25/16 00:45 Vancomycin HCl/ Sodium Chloride (Vancomycin Inj/ NS 250 ml Inj) 255 ml @ 250 mls/hr ONCE ONCE IV 12/25/16 02:00 12/25/16 03:01 Family History Noncontributory Social History Negative 3 Physical Exam Vital Signs Vital Signs Date Time Temp Pulse Resp B/P Pulse Ox O2 Delivery O2 Flow Rate FiO2 12/25/16 00:35 117 20 79/49 93 Nasal Cannula 3 12/25/16 00:15 115 20 64/48 95 Nasal Cannula 3 12/24/16 23:22 111 25 96 Nasal Cannula 3 12/24/16 23:21 111 15 77/42 96 Nasal Cannula 3 12/24/16 23:06 116 25 88/51 96 Nasal Cannula 3 12/24/16 22:30 97.5 130 25 78/ 91 Physical Exam GENERAL: Elderly woman. Critically ill appearing SKIN: Warm and dry. HEAD: Normocephalic. EYES: No scleral icterus. No injection or drainage. NECK: Supple, trachea midline. No JVD or lymphadenopathy. CARDIOVASCULAR: Regular rate and rhythm without murmurs, gallops, or rubs. RESPIRATORY: Breath sounds equal bilaterally. No accessory muscle use. GASTROINTESTINAL: Abdomen soft, non-tender, nondistended. MUSCULOSKELETAL: No cyanosis, or edema. BACK: Nontender without obvious deformity. No CVA tenderness. Laboratory Laboratory Tests Test 12/24/16 12/24/16 22:00 22:51 Urine Color YELLOW Urine Turbidity CLOUDY Urine pH 6.0 Urine Specific [place] 1.025 Urine Protein 100 Urine Glucose (UA) NEG Urine Ketones NEG Urine Occult Blood MOD Urine Nitrite NEG Urine Bilirubin NEG Urine Urobilinogen LESS THAN 2.0 Urine Leukocyte Esterase LARGE Urine RBC 131 Urine WBC Urine WBC Clumps MANY Urine Renal Epithelial Cells 41 Urine Bacteria MOD Urine Hyaline Casts 36 Urine Mucus FEW Microscopic Urinalysis Comment CATH-CULTURE IND White Blood Count 7.2 Red Blood Count 3.13 Hemoglobin 10.0 Hematocrit 29.7 Mean Corpuscular Volume 94.9 Mean Corpuscular Hemoglobin 31.9 Mean Corpuscular Hemoglobin 33.7 Concent Red Cell Distribution Width 18.5 Platelet Count 38 Mean Platelet Volume 8.6 Neutrophils (%) (Auto) 95.0 Lymphocytes (%) (Auto) 3.2 Monocytes (%) (Auto) 1.7 Eosinophils (%) (Auto) 0.0 Basophils (%) (Auto) 0.1 Neutrophils # (Auto) 6.8 Lymphocytes # (Auto) 0.2 Monocytes # (Auto) 0.1 Eosinophils # (Auto) 0.0 Basophils # (Auto) 0.0 CBC Comment AUTO DIFF Differential Total Cells 100 Counted Neutrophils % (Manual) 56 Band Neutrophils % 24 Lymphocytes % 1 Monocytes % 1 Neutrophils # (Manual) 7.1 Metamyelocytes 18 Differential Comment FINAL DIFF MANUAL Toxic Granulation 1+ Toxic Vacuolation PRESENT Platelet Estimate LOW Platelet Morphology Comment NORMAL [place] Cells 1+ Acanthocytes OCC Prothrombin Time 14.7 Prothromb Time International 1.3 Ratio Activated Partial 44.4 Thromboplast Time Sodium Level 140 Potassium Level 4.0 Chloride Level 108 Carbon Dioxide Level 19.3 Anion Gap 13 Blood Urea Nitrogen 26 Creatinine 1.32 Estimat Glomerular Filtration 39 Rate Random Glucose 71 Lactic Acid Level 3.7 Calcium Level 6.1 Protein Corrected Calcium 8.3 Magnesium Level 1.1 Total Bilirubin 0.3 Aspartate Amino Transf 16 (AST/SGOT) Alanine Aminotransferase 11 (ALT/SGPT) Alkaline Phosphatase 160 Total Creatine Kinase 20 Troponin I 0.03 Total Protein 2.9 Albumin 0.8 Lipase 27 Date/Time Procedure Status Source Growth 12/24/16 22:51 Aerobic Blood Culture Received Blood Peripheral Pending 12/24/16 22:51 Anaerobic Blood Culture Received Blood Peripheral Pending 12/24/16 22:00 Urine Culture Received Urine Catheterized Urine Pending Result Diagram: 12/24/16225012/24/162250 Imaging Last 24 hours Impressions Chest X-Ray 12/24/162139 Signed Impressions: Service Date/Time: Saturday, December 24, 2016 22:49 - CONCLUSION: 1. [id number] and right central line in superior vena cava. Basal airspace disease in the lungs. No pneumothorax. Alban Farris MD Assessment and Plan Problem List: (1) UTI (urinary tract infection) ICD Code: N39.0 Status: Acute (2) Ovarian cancer ICD Code: C56.9 Status: Chronic (3) Malignant ascites ICD Code: R18.0 Status: Chronic Assessment and Plan Sepsis - Unclear source - Consider UTI - Broad-spectrum antibiotic - Immunocompromised patient - ID consultation - panculture Ovarian cancer - Supportive care - Palliative care consult Refractory ascites - Due to above - Paracenteses as needed if respiratory compromise Hypertension - Due to above - Aggressive fluid resuscitation - We will set as needed to keep map above 65 DVT GI prophylaxis - Lovenox and Pepcid Critical Care: The total critical care time was 35 minutes. Time to perform other separately billable procedures was not included in the critical care time. Keagan Mei MD Dec 25, 2016 00:45
[2016-12-25 00:56] LABS: LACTIC ACID GHOST NOT REPORTABLE
[2016-12-25] MEDS ORDERED: HEPARIN SODIUM - SQ 10,000 UNITS/ML VIAL SQ SCH (01:00)
[2016-12-25] MEDS: SODIUM CHLOR 0.9% 1000 ML INJ 1,000 ML IV SCH ×3 (01:19→14:02)
[2016-12-25] MEDS ORDERED: VANCOMYCIN INJ 500 MG in SODIUM CHLOR 0.9% 250 ML INJ 250 ML IV ONE (02:00)
[2016-12-25 02:27] LABS: LACTIC ACID GHOST NOT REPORTABLE
[2016-12-25] MEDS: HYDROCORTISONE SOD SUCCINATE 100 MG VIAL IV SCH ×3 (02:42→12:25)
[2016-12-25] MEDS: ONDANSETRON HCL 4 MG/2 ML VIAL IV PRN ×2 (03:15→10:33)
[2016-12-25] MEDS: CHLORHEXIDINE GLUCONATE 2 % 1 PACK (2 CLOTHS) TOP SCH (04:00)
[2016-12-25] MEDS: NOREPINEPHRINE-DEXTROSE DRIP 250 ML IV SCH ×3 (04:36→17:26)
[2016-12-25] MEDS: PIPERACIL-TAZO 4.5 GM PREMIX 100 ML IV SCH ×2 (05:14→12:26)
[2016-12-25] MEDS ORDERED: SODIUM CHLORID 0.9% 500 ML INJ 500 ML IV ONE (08:30)
[2016-12-25] MEDS: DOCUSATE SODIUM 100 MG CAP PO SCH ×2 (08:36→21:00)
[2016-12-25] MEDS: FAMOTIDINE 20 MG/2 ML VIAL IV PUSH SCH ×2 (08:41→22:25)
[2016-12-25] MEDS: SODIUM CHLORIDE 0.9% FLUSH 5 ML FLUSH IV FLUSH SCH ×2 (08:42→22:25)
[2016-12-25] MEDS ORDERED: SODIUM CHLORIDE 0.9% FLUSH 5 ML FLUSH IV FLUSH SCH (09:00)
[2016-12-25] MEDS: MORPHINE SULFATE 4 MG/ML INJ IV PRN ×2 (10:33→13:35)
[2016-12-25] MEDS ORDERED: SODIUM CHLOR 0.9% 1000 ML INJ 1,000 ML IV SCH (11:00)
[2016-12-25 12:39] LABS: HEMATOCRIT 33.8 % (35.0-46.0); MEAN CELL VOLUME 95.6 FL (80.0-100.0); MEAN CORPUSCULAR HEMOGLOBIN 31.5 PG (27.0-34.0); PLATELET COUNT 36 TH/MM3 (150-450); RED BLOOD COUNT 3.54 MIL/MM3 (4.00-5.30); RED CELL DISTRIBUTION WIDTH 18.8 % (11.6-17.2); WHITE BLOOD COUNT 8.2 TH/MM3 (4.0-11.0)
[2016-12-25 12:53] LABS: REVIEW FLAG FINAL
[2016-12-25 13:28] LABS: BICARBONATE 15.6 MEQ/L (21.0-32.0); POTASSIUM 4.3 MEQ/L (3.5-5.1); TOTAL BILIRUBIN ADULT 0.6 MG/DL (0.2-1.0)
--- NOTE | 2016-12-25 13:44 | PD.ID.CON ---
History of Present Illness Service ID Consult Requested By Reason for Consult Evaluation and Mment of Septic Shock, UTI in a patient with advanced ovarian cancer. Primary Care Physician Silver Berry MD Diagnoses: History of Present Illness Ms. Murphy is a 76-year-old female with past medical history significant for refractory stage IV ovarian cancer who has been on chemotherapy using a port and followed by Dr. Venegas. Patient is now on fourth line treatment and her CA-125 was 1921 and it continued to go up and was noted to be in 2000 and possibly 4000 range. Patient decided to take a break from chemotherapy was started on tamoxifen from review of medical records. Due to her worsening disease and recurrent ascites patient underwent therapeutic paracentesis on almost a weekly basis. Per discussion with Dr. Marjan NG it appears that patient had decided to opt for hospice as well as change her CODE STATUS after placement of a G-tube as well as placement of a peritoneal drain to help with relief of her abdominal pain secondary to recurrent ascites. Patient was admitted due to history of lethargy for 2 days prior to admission. Per patient's she has not been eating or drinking well. In the emergency room, the patient was noted to be hypotensive prior to arrival with systolic blood pressure in the 70s, heart rate in the 140s. At the time of my evaluation patient is in the ICU has received up to 5.5 L of fluid out of which 4 L of bolus and then maintenance IVF. In addition patient also recd albumin iv. Patient's urine output has been dwindling and at present time is almost 0. Patient has pitting edema as well as mottling of her lower extremities noted. Patient is extremely uncomfortable and is writhing in pain despite pain medications being given to her. Patient is currently on Levophed 15 mics. Infectious disease is consulted for evaluation and management of septic shock, UTI in a patient with advanced ovarian cancer. Review of Systems ROS Limitations: Other (Uncomfortable and in distress due to abdominal pain.) Constitutional: COMPLAINS OF: Change in appetite, DENIES: Diaphoretic episodes , Fatigue, Fever, Weight gain, Weight loss, Chills, Dizziness, Night Sweats Endocrine: DENIES: Abnorml menstrual pattern, Heat/cold intolerance, Polydipsia , Polyuria, Polyphagia Eyes: DENIES: Blurred vision, Diplopia, Eye inflammation, Eye pain, Vision loss , Photosensitivity, Double Vision Ears, nose, mouth, throat: DENIES: Tinnitus, Hearing loss, Vertigo, Nasal discharge, Oral lesions, Throat pain, Hoarseness, Ear Pain, Running Nose, Epistaxis, Sinus Pain, Toothache, Odynophagia Respiratory: DENIES: Apneas, Cough, Snoring, Wheezing, Hemoptysis, Sputum production, Shortness of breath Cardiovascular: DENIES: Chest pain, Palpitations, Syncope, Dyspnea on Exertion , PND, Lower Extremity Edema, Orthopnea, Claudication Gastrointestinal: COMPLAINS OF: Abdominal pain, Anorexia Musculoskeletal: DENIES: Joint pain, Muscle aches, Stiffness, Joint Swelling, Back pain, Neck pain Integumentary: DENIES: Abnormal pigmentation, Pruritus, Rash, Nail changes, Breast masses, Breast skin changes, Nipple discharge Hematologic/lymphatic: DENIES: Bruising, Lymphadenopathy Immunologic/allergic: DENIES: Eczema, Urticaria Neurologic: DENIES: Abnormal gait, Headache, Localized weakness, Paresthesias, Seizures, Speech Problems, Tremor, Poor Balance Psychiatric: DENIES: Anxiety, Confusion, Mood changes, Depression, Hallucinations, Agitation, Suicidal Ideation, Homicidal Ideation, Delusions Except as stated in HPI: all other systems reviewed are Neg ROS limited as patient in pain and very uncomfortable. Past Family Social History Allergies: Coded Allergies: *MDRO Multi-Drug Resistant Organism (Verified Adverse Reaction, Unknown, ) ESBL E. coli (urine) - 08/27/16 Past Medical History Ovarian Cancer seeing Dr. Kumar Has had multiple chemotherapy regimens HTN currently not needing medications Past Surgical History Hysterectomy Two colectomies Lumpectomy Right breast for breast cancer Cataracts Reported Medications Reported Meds & Active Scripts Active Zofran Liq (Ondansetron HCl) 4 Mg/5 Ml Soln 4 Mg PO Q6H PRN 3-in-1 Commode (Device) 1 Mis Mis Units Klonopin (Clonazepam) 0.5 Mg Tab 0.5 Mg PO Q12HR PRN Active Ordered Medications Current Medications Medications (Trade) Dose Ordered Sig/Rodger Route Start Time Stop Time Status Last Admin Terbutaline Sulfate 1 mg 1 mg UNSCH PRN SQ 12/25/16 00:15 (NS 1000 ml Inj) 1,000 ml @ 150 mls/hr Q6H40M IV 12/25/16 00:36 12/25/16 08:35 (NS Flush) 2 ml UNSCH PRN IV FLUSH 12/25/16 00:45 (NS Flush) 2 ml BID IV FLUSH 12/25/16 09:00 12/25/16 08:42 (Tylenol) 650 mg Q6H PRN PO 12/25/16 00:45 (Pepcid Inj) 10 mg Q12HR IV PUSH 12/25/16 09:00 12/25/16 08:41 (Zofran Inj) 4 mg Q6H PRN IV 12/25/16 00:45 12/25/16 10:33 (Reglan Inj) 10 mg Q6H PRN IV 12/25/16 00:45 12/25/16 13:35 (Colace) 100 mg BID PO 12/25/16 09:00 (Ambien) 5 mg HS PRN PO 12/25/16 00:45 Miscellaneous Information 1 Q361D XX 12/25/16 00:45 (Chlorhexidine 2% Cloth) 3 pack Taper DAILY@04 TOP 12/25/16 04:00 12/21/17 03:59 12/25/16 04:00 (Chlorhexidine 2% Cloth) 3 pack UNSCH PRN TOP 12/25/16 00:45 Hydrocortisone Sodium Succinate 50 mg 50 mg Q6H IV 12/25/16 01:00 12/25/16 12:25 (Levophed-Dextrose Drip) 250 ml @ 0 mls/hr TITRATE IV 12/25/16 00:45 12/25/16 10:33 (Brethine Inj) 1 mg UNSCH PRN SQ 12/25/16 00:45 Miscellaneous Information SPECIFIC LAB TO BE DRAWN:VANCOMYCIN TROUGH DATE TO... ONCE ONCE XX 12/27/16 22:45 12/27/16 22:46 Sodium Chloride 1,000 ml @ 0 mls/hr BOLUS IV 12/25/16 11:00 12/25/16 11:15 Linezolid 300 ml @ 300 mls/hr Q12H IV 12/25/16 14:00 (Mycamine Inj/NS Inj) 100 ml @ 100 mls/hr Q24H IV 12/25/16 14:00 UNV (Morphine Inj) 4 mg Q2H PRN IV 12/25/16 14:45 Fentanyl Citrate 50 mcg 50 mcg Q2HR PRN IV PUSH 12/25/16 14:00 UNV (Merrem Inj/NS Inj) 100 ml @ 200 mls/hr Q8H IV 12/25/16 14:00 UNV Family History could not be obtained. Patient uncomfortable in pain. Will attempt later. Social History Could not be obtained. Physical Exam Vital Signs Vital Signs Date Time Temp Pulse Resp B/P Pulse Ox O2 Delivery O2 Flow Rate FiO2 12/25/16 12:00 97.9 110 17 108/60 98 12/25/16 12:00 110 12/25/16 10:00 118 12/25/16 08:00 117 12/25/16 08:00 98.4 116 17 108/60 95 12/25/16 07:00 97 Nasal Cannula 2.00 12/25/16 06:00 116 12/25/16 04:00 108 12/25/16 04:00 97.7 108 14 96/52 98 12/25/16 03:15 94.3 111 15 88/53 97 12/25/16 03:15 112 15 95/53 94 Nasal Cannula 3 12/25/16 03:15 111 12/25/16 03:15 98 Nasal Cannula 3.00 12/25/16 03:04 111 15 88/53 94 Nasal Cannula 3 12/25/16 02:38 109 15 87/54 96 Nasal Cannula 3 12/25/16 01:35 125 15 86/56 94 Nasal Cannula 3 12/25/16 01:30 125 15 77/50 93 Nasal Cannula 3 12/25/16 00:54 117 15 73/50 94 Nasal Cannula 3 12/25/16 00:46 20 94 3 12/25/16 00:35 117 20 79/49 93 Nasal Cannula 3 12/25/16 00:15 115 20 64/48 95 Nasal Cannula 3 12/24/16 23:22 111 25 96 Nasal Cannula 3 12/24/16 23:21 111 15 77/42 96 Nasal Cannula 3 12/24/16 23:06 116 25 88/51 96 Nasal Cannula 3 12/24/16 22:30 97.5 130 25 78/ 91 12/24/16 22:30 94 Nasal Cannula 3 Physical Exam GENERAL: Thin built, chronically ill appearing patient, in no apparent distress. SKIN: Areas of ecchymosis noted. HEAD: Atraumatic. Normocephalic. No temporal or scalp tenderness. EYES: Pupils equal round and reactive. Extraocular motions intact. No scleral icterus. No injection or drainage. ENT: Nose without bleeding, purulent drainage or septal hematoma. Throat without erythema, tonsillar hypertrophy or exudate. Uvula midline. Airway patent. NECK: Trachea midline. Supple, nontender, no meningeal signs. CARDIOVASCULAR: Regular rate and rhythm without murmurs, gallops, or rubs. RESPIRATORY: Clear to auscultation. Breath sounds equal bilaterally decreased in the bases. GASTROINTESTINAL: Abdomen distended, tenderness, ? rebound tenderness. MUSCULOSKELETAL: Extremities without clubbing, cyanosis, or edema. NEUROLOGICAL: Lethargic, moaning in pain. Moves all 4 extremities. Psych: cooperative IV line sites with no e/o infection. Laboratory Laboratory Tests Test 12/24/16 12/24/16 12/25/16 12/25/16 22:00 22:51 00:15 03:40 Urine Color YELLOW Urine Turbidity CLOUDY Urine pH 6.0 Urine Specific [place] 1.025 Urine Protein 100 Urine Glucose (UA) NEG Urine Ketones NEG Urine Occult Blood MOD Urine Nitrite NEG Urine Bilirubin NEG Urine Urobilinogen LESS THAN 2.0 Urine Leukocyte Esterase LARGE Urine RBC 131 Urine WBC Urine WBC Clumps MANY Urine Renal Epithelial Cells 41 Urine Bacteria MOD Urine Hyaline Casts 36 Urine Mucus FEW Microscopic Urinalysis Comment CATH-CULTURE IND Prothrombin Time 14.7 Prothromb Time International 1.3 Ratio Activated Partial 44.4 Thromboplast Time Sodium Level 140 Potassium Level 4.0 Chloride Level 108 Carbon Dioxide Level 19.3 Anion Gap 13 Blood Urea Nitrogen 26 Creatinine 1.32 Estimat Glomerular Filtration 39 Rate Random Glucose 71 Calcium Level 6.1 Protein Corrected Calcium 8.3 Magnesium Level 1.1 Total Bilirubin 0.3 Aspartate Amino Transf 16 (AST/SGOT) Alanine Aminotransferase 11 (ALT/SGPT) Alkaline Phosphatase 160 Total Creatine Kinase 20 Troponin I 0.03 Total Protein 2.9 Albumin 0.8 Lipase 27 White Blood Count 7.2 Red Blood Count 3.13 Hemoglobin 10.0 Hematocrit 29.7 Mean Corpuscular Volume 94.9 Mean Corpuscular Hemoglobin 31.9 Mean Corpuscular Hemoglobin 33.7 Concent Red Cell Distribution Width 18.5 Platelet Count 38 Mean Platelet Volume 8.6 Neutrophils (%) (Auto) 95.0 Lymphocytes (%) (Auto) 3.2 Monocytes (%) (Auto) 1.7 Eosinophils (%) (Auto) 0.0 Basophils (%) (Auto) 0.1 Neutrophils # (Auto) 6.8 Lymphocytes # (Auto) 0.2 Monocytes # (Auto) 0.1 Eosinophils # (Auto) 0.0 Basophils # (Auto) 0.0 CBC Comment AUTO DIFF Differential Total Cells 100 Counted Neutrophils % (Manual) 56 Band Neutrophils % 24 Lymphocytes % 1 Monocytes % 1 Neutrophils # (Manual) 7.1 Metamyelocytes 18 Differential Comment FINAL DIFF MANUAL Toxic Granulation 1+ Toxic Vacuolation PRESENT Platelet Estimate LOW Platelet Morphology Comment NORMAL [place] Cells 1+ Acanthocytes OCC Lactic Acid Level 3.7 3.4 Prealbumin LESS THAN 3 Nasal Screen MRSA (PCR) NEGATIVE Test 12/25/16 12/25/16 12/25/16 04:45 12:10 12:35 Lactic Acid Level 3.0 3.3 White Blood Count 8.2 Red Blood Count 3.54 Hemoglobin 11.2 Hematocrit 33.8 Mean Corpuscular Volume 95.6 Mean Corpuscular Hemoglobin 31.5 Mean Corpuscular Hemoglobin 33.0 Concent Red Cell Distribution Width 18.8 Platelet Count 36 Mean Platelet Volume 8.9 Sodium Level 138 Potassium Level 4.3 Chloride Level 109 Carbon Dioxide Level 15.6 Anion Gap 13 Blood Urea Nitrogen 24 Creatinine 1.44 Estimat Glomerular Filtration 36 Rate Random Glucose 89 Calcium Level 6.2 Protein Corrected Calcium 8.0 Total Bilirubin 0.6 Aspartate Amino Transf 25 (AST/SGOT) Alanine Aminotransferase 15 (ALT/SGPT) Alkaline Phosphatase 128 Total Protein 3.6 Albumin 1.5 Date/Time Procedure Status Source Growth 12/24/16 22:51 Aerobic Blood Culture - Preliminary Resulted Blood Peripheral NO GROWTH IN 1 DAY 12/24/16 22:51 Anaerobic Blood Culture - Preliminary Resulted Blood Peripheral NO GROWTH IN 1 DAY 12/24/16 22:00 Urine Culture - Preliminary Resulted Urine Catheterized Urine Gram Negative Sourav Result Diagram: 12/25/16 1210 12/25/16 1210 Imaging Last Impressions Chest X-Ray 12/24/160 Signed Impressions: Service Date/Time: Saturday, December 24, 2016 22:49 - CONCLUSION: 1. [id number] and right central line in superior vena cava. Basal airspace disease in the lungs. No pneumothorax. Alban Farris MD Assessment and Plan Assessment and Plan Septic Shock with Multiorgan dysfunction. Possible sources: Secondary bacterial peritonitis, UTI, Port related Blood stream infection. Acute renal failure: sepsis, prerenal, third spacing (albumin 0.8, prealbumin 3) Possible Secondary bacterial peritonitis. h/o weekly paracentesis. Gram negative UTI present on admission. Recs Blood cultures (port and periphery) DC Zosyn IV DC Vanco IV Start Meropenem IV (ASP criteria: worsening septic shock on Zosyn IV and Vanco IV, prior multiple procedures, Immune compromised, at risk for MDRO) Start Zyvox IV (avoid nephrotoxins anuric renal failure, possible VRE given prior antibiotic exposure and secondary peritonitis vs carcinomatosis) Start Micafungin IV (Port infection, Immune compromised) dAndreew Sports Equipment Supervisor about addressing patients pain meds as patient is in distress due to pain. Also discussed considering albumin and IVF adjustment. CXR reviewed with medical corps officer. Follow HCO3 while on Zyvox and platelets. CT Abd/Pelvis without contrast (intra abdominal abscess). CT/US guided paracentesis (diagnostic and therapeutic) dominik RN Dw clinical pharmacist, HENRRY DONOVAN, Patients family, Palliative care rozina NG. Critical condition. d/w Patients family in room ongoing worsening hypotension, persistent lactic acidemia and concern for worsening sepsis. Patients family also met with Palliative care team as well as 's PA/TECHNOLOGY PROGRAM MANAGER Ted: the family would like to keep her full code at present time. They are waiting for family to arrive. They would like to continue aggressive care including paracentesis and any life saving procedures such as intubation if need be. Critical thinking, decision making, reviewed old medical records, d/w all clinical staff involved in care, dominik clinical pharmacist. Coordination of procedures, Time in excess of 80 mins. dominik Clinical pharmacist. Merle Tamayo MD Dec 25, 2016 13:44
[2016-12-25] MEDS ORDERED: MISCELLANEOUS PHARMACY INFORMATION XX PRN (14:00)
[2016-12-25] MEDS ORDERED: ASP: Other exception documentation: ( ) XX PRN (14:00)
[2016-12-25] MEDS: LINEZOLID 600 MG PREMIX 300 ML IV SCH (14:31)
[2016-12-25] MEDS ORDERED: MICAFUNGIN INJ 150 MG in SODIUM CHLORIDE 0.9% INJ 100 ML IV SCH (15:00)
[2016-12-25] MEDS ORDERED: EPINEPHrine HCL (1:10,000) 1 MG/10 ML SYRINGE ONE ×2 (15:04→18:31)
--- NOTE | 2016-12-25 15:04 | PD.CONS ---
History of Present Illness Service STAFF REGISTERED NURSE/ONC Consult Requested By Dr. Tamayo Reason for Consult ovarian cancer Primary Care Physician Silver Berry MD Diagnoses: History of Present Illness Ms. 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 Mrs. Murphy has a diagnosis of refractory stage IV ovarian cancer who has been followed by Dr. Phillip and most recently on 4th line chemotherapy. Unfortunately she has not responded to despite recent treatment with physically she is more symptomatic requiring more frequent paracentesis. Additionally her CA 125 has increased to greater than 4000. She was last seen in our office on on 12/19/16 which was decided that once she has an abdominal drain placed for paracentesis and G-tube for chronic SBO that she then wanted to sign up for Hospice. Patient was admitted due to history of lethargy for 2 days prior to admission. Per patient's she has not been eating or drinking well. In the emergency room, the patient was noted to be hypotensive prior to arrival with systolic blood pressure in the 70s, heart rate in the 140s. She was admitted to ICU and Levophed gtt started. She currently is being followed by Eligibility And Occupancy Interviewer team and we appreciate their care. Myself and Sharda Lal, Palliative care CHIEF ADMINISTRATIVE OFFICER. Met with family and currently they are awaiting 2 more family members to arrive and then they will consider DNR/DNI orders and Hospice. They do understand that, if a code situation occurred, that she may not survive despite resuscitation. We agreed to have a therapeutic paracentesis in hopes to make her more comfortable , but if we have an infection process or sold tumor burden contributing to her pain then we may not see much relief with para. Review of Systems ROS Limitations: Clinical Condition Constitutional: COMPLAINS OF: Chills, Change in appetite Gastrointestinal: COMPLAINS OF: Abdominal pain, Nausea, Vomiting Past Family Social History Allergies: Coded Allergies: *MDRO Multi-Drug Resistant Organism (Verified Adverse Reaction, Unknown, ) ESBL E. coli (urine) - 08/27/16 Past Medical History ascites r/t ovarian cancer breast cancer high cholesterol hypertension osteoarthritis Past Surgical History breast bx left knee surgery lumpectomy colonoscopy hysterectomy with BSO and staging tumor debulking Active Ordered Medications Current Medications Sodium Chloride 1,000 ml @ 1,000 mls/hr Q1H ONCE IV Last administered on 21:30; Start 12/24/16 at 21:40; Stop 12/24/16 at 22:39; Status DC Sodium Chloride 1,000 ml @ 1,000 mls/hr Q1H ONCE IV Last administered on 22:30; Start 12/24/16 at 21:40; Stop 12/24/16 at 22:39; Status DC Sodium Chloride 100 ml @ 1,000 mls/hr Q6M ONCE IV Last administered on 23:00; Start 12/24/16 at 21:40; Stop 12/24/16 at 21:45; Status DC Vancomycin HCl 1000 mg/Sodium Chloride 250 ml @ 250 mls/hr ONCE ONCE IV Last administered on 12/25/16 00:03; Start 12/24/16 at 21:45; Stop 12/25/16 at 13:51 ; Status DC Piperacillin Sod/ Tazobactam Sod (Zosyn 3.375 Gm Premix) 50 ml @ 100 mls/hr ONCE ONCE IV Last administered on 12/24/16 23:20; Start 12/24/16 at 21:45; Stop 12/24/16 at 22:14; Status DC Ondansetron HCl 4 mg 4 mg ONCE ONCE IV Last administered on 12/24/16 23:20; Start 12/24/16 at 22:45; Stop 12/24/16 at 22:46; Status DC Sodium Chloride 1,000 ml @ 1,000 mls/hr Q1H ONCE IV Last administered on 23:00; Start 12/24/16 at 23:30; Stop 12/25/16 at 00:29; Status DC Calcium Gluconate 1 gm/Dextrose 110 ml @ 110 mls/hr ONCE ONCE IV Last administered on 12/25/16 00:28; Start 12/24/16 at 23:45; Stop 12/25/16 at 00:44 ; Status DC Norepinephrine Bitartrate (Levophed-Dextrose Drip) 250 ml @ 0 mls/hr TITRATE IV Last administered on 12/25/16 00:17; Start 12/25/16 at 00:15; Stop 12/25/16 at 01:32; Status DC Terbutaline Sulfate (Brethine Inj) 1 mg UNSCH PRN SQ For Extravasation; Start 12/25/16 at 00:15 Norepinephrine Bitartrate (Levophed Inj) 4 mg STK-MED ONCE .ROUTE ; Start at 00:10; Stop 12/25/16 at 00:11; Status DC Albumin Human 25 gm 25 gm ONCE ONCE IV Last administered on 12/25/16 01:19; Start 12/25/16 at 00:45; Stop 12/25/16 at 00:46; Status DC Sodium Chloride (NS 1000 ml Inj) 1,000 ml @ 150 mls/hr Q6H40M IV Last administered on 12/25/16 14:02; Start 12/25/16 at 00:36 IV Flush (NS Flush) 2 ml UNSCH PRN IV FLUSH FLUSH AFTER USING IV ACCESS; Start 12/25/16 at 00:45 IV Flush (NS Flush) 2 ml BID IV FLUSH Last administered on 12/25/16 08:42; Start 12/25/16 at 09:00 Acetaminophen (Tylenol) 650 mg Q6H PRN PO PAIN 1-5 AND/OR FEVER >101F; Start at 00:45 Morphine Sulfate (Morphine Inj) 2 mg Q2H PRN IV PAIN SCALE 6 TO 10 Last administered on 12/25/16 13:35; Start 12/25/16 at 00:45; Stop 12/25/16 at 13:52 ; Status DC Famotidine (Pepcid Inj) 10 mg Q12HR IV PUSH Last administered on 12/25/16 08: 41; Start 12/25/16 at 09:00 Ondansetron HCl (Zofran Inj) 4 mg Q6H PRN IV NAUSEA OR VOMITING Last administered on 12/25/16 10:33; Start 12/25/16 at 00:45 Metoclopramide HCl (Reglan Inj) 10 mg Q6H PRN IV NAUSEA OR VOMITING Last administered on 12/25/16 13:35; Start 12/25/16 at 00:45 Docusate Sodium (Colace) 100 mg BID PO ; Start 12/25/16 at 09:00 Zolpidem Tartrate (Ambien) 5 mg HS PRN PO INSOMNIA; Start 12/25/16 at 00:45 Albuterol/ Ipratropium (Duoneb Neb) 1 ampule Q2HR NEB PRN INH WHEEZING; Start 12/25/16 at 00:45 Heparin Sodium (Porcine) (Heparin Inj) 5,000 units Q8H SQ ; Start 12/25/16 at 01 :00; Stop 12/25/16 at 02:05; Status DC Miscellaneous Information 1 Q361D XX ; Start 12/25/16 at 00:45 Chlorhexidine Gluconate (Chlorhexidine 2% Cloth) 3 pack Taper DAILY@04 TOP Last administered on 12/25/16 04:00; Start 12/25/16 at 04:00; Stop 12/21/17 at 03:59 Chlorhexidine Gluconate (Chlorhexidine 2% Cloth) 3 pack UNSCH PRN TOP HYGIENIC CARE; Start 12/25/16 at 00:45 IV Flush (NS Flush) 2 ml UNSCH PRN IV FLUSH FLUSH AFTER USING IV ACCESS; Start 12/25/16 at 00:45; Stop 12/25/16 at 01:23; Status DC IV Flush (NS Flush) 2 ml BID IV FLUSH ; Start 12/25/16 at 09:00; Stop 12/25/16 at 09:00; Status DC Hydrocortisone Sodium Succinate 50 mg 50 mg Q6H IV Last administered on 12:25; Start 12/25/16 at 01:00 Vancomycin HCl 1000 mg/Sodium Chloride 250 ml @ 250 mls/hr Q12H IV ; Start at 00:45; Status UNV Pharmacy Profile Note 0 ml @ 0 mls/hr UNSCH XX ; Start 12/25/16 at 00:45; Stop 12/25/16 at 13:51; Status DC Piperacillin Sod/ Tazobactam Sod 100 ml @ 200 mls/hr Q6H IV Last administered on 12/25/16 12:26; Start 12/25/16 at 06:00; Stop 12/25/16 at 13:54; Status DC Norepinephrine Bitartrate (Levophed-Dextrose Drip) 250 ml @ 0 mls/hr TITRATE IV Last administered on 12/25/16 10:33; Start 12/25/16 at 00:45 Terbutaline Sulfate 1 mg 1 mg UNSCH PRN SQ For Extravasation; Start 12/25/16 at 00:45 Vancomycin HCl 500 mg/Sodium Chloride 255 ml @ 250 mls/hr ONCE ONCE IV Last administered on 12/25/16 03:04; Start 12/25/16 at 02:00; Stop 12/25/16 at 03:01 ; Status DC Sodium Chloride 500 ml @ 0 mls/hr BOLUS ONCE IV Last administered on 08:35; Start 12/25/16 at 08:30; Stop 12/25/16 at 08:31; Status DC Vancomycin HCl/ Sodium Chloride (Vancomycin Inj/ NS 500 ml Inj) 515 ml @ 250 mls/hr Q24H IV ; Start 12/25/16 at 23:00; Stop 12/25/16 at 23:00; Status DC Miscellaneous Information SPECIFIC LAB TO BE DRAWN:VANCOMYCIN TROUGH DATE TO... ONCE ONCE XX ; Start 12/27/16 at 22:45; Stop 12/27/16 at 22:45; Status DC Sodium Chloride 1,000 ml @ 0 mls/hr BOLUS IV Last administered on 12/25/16 11 :15; Start 12/25/16 at 11:00 Linezolid 300 ml @ 300 mls/hr Q12H IV ; Start 12/25/16 at 14:00 Micafungin Sodium/ Sodium Chloride (Mycamine Inj/NS Inj) 100 ml @ 100 mls/hr Q24H IV ; Start 12/25/16 at 15:00 Morphine Sulfate (Morphine Inj) 4 mg Q2H PRN IV PAIN SCALE 4 TO 10; Start 12/25 at 14:45 Fentanyl Citrate (fentaNYL INJ) 50 mcg Q2HR PRN IV PUSH PAIN SCALE 6 TO 10; Start 12/25/16 at 14:00 Miscellaneous Medication (ASP Crit: Other exception documentation) 1 UNSCH X1 PRN XX PHARMACY DOCUMENTATION; Start 12/25/16 at 14:00; Stop 12/26/16 at 13:59 Miscellaneous Medication 1 1 UNSCH X1 PRN XX PHARMACY DOCUMENTATION; Start at 14:00; Stop 12/26/16 at 13:59 Meropenem/Sodium Chloride (Merrem Inj/NS Inj) 100 ml @ 200 mls/hr Q8H IV ; Start 12/25/16 at 15:00 Social History never smoked 3 children Physical Exam Vital Signs Vital Signs Date Time Temp Pulse Resp B/P Pulse Ox O2 Delivery O2 Flow Rate FiO2 12/25/16 12:00 97.9 110 17 108/60 98 12/25/16 12:00 110 12/25/16 10:00 118 12/25/16 08:00 117 12/25/16 08:00 98.4 116 17 108/60 95 12/25/16 07:00 97 Nasal Cannula 2.00 12/25/16 06:00 116 12/25/16 04:00 108 12/25/16 04:00 97.7 108 14 96/52 98 12/25/16 03:15 94.3 111 15 88/53 97 12/25/16 03:15 112 15 95/53 94 Nasal Cannula 3 12/25/16 03:15 111 12/25/16 03:15 98 Nasal Cannula 3.00 12/25/16 03:04 111 15 88/53 94 Nasal Cannula 3 12/25/16 02:38 109 15 87/54 96 Nasal Cannula 3 12/25/16 01:35 125 15 86/56 94 Nasal Cannula 3 12/25/16 01:30 125 15 77/50 93 Nasal Cannula 3 12/25/16 00:54 117 15 73/50 94 Nasal Cannula 3 12/25/16 00:46 20 94 3 12/25/16 00:35 117 20 79/49 93 Nasal Cannula 3 12/25/16 00:15 115 20 64/48 95 Nasal Cannula 3 12/24/16 23:22 111 25 96 Nasal Cannula 3 12/24/16 23:21 111 15 77/42 96 Nasal Cannula 3 12/24/16 23:06 116 25 88/51 96 Nasal Cannula 3 12/24/16 22:30 97.5 130 25 78/ 91 12/24/16 22:30 94 Nasal Cannula 3 Physical Exam GENERAL: acutely ill, in distress moaning in pain HEAD: Atraumatic. Normocephalic. EYES: Pupils equal round and reactive. CARDIOVASCULAR: tachycardic RESPIRATORY: Clear to auscultation. GASTROINTESTINAL: Abdomen distended and painful MUSCULOSKELETAL: Extremities with +3 pitting edema to bilat LE and +2 to bilat upper ext Laboratory Laboratory Tests Test 12/24/16 12/24/16 12/25/16 12/25/16 22:00 22:51 00:15 03:40 Urine Color YELLOW Urine Turbidity CLOUDY Urine pH 6.0 Urine Specific [place] 1.025 Urine Protein 100 Urine Glucose (UA) NEG Urine Ketones NEG Urine Occult Blood MOD Urine Nitrite NEG Urine Bilirubin NEG Urine Urobilinogen LESS THAN 2.0 Urine Leukocyte Esterase LARGE Urine RBC 131 Urine WBC Urine WBC Clumps MANY Urine Renal Epithelial Cells 41 Urine Bacteria MOD Urine Hyaline Casts 36 Urine Mucus FEW Microscopic Urinalysis Comment CATH-CULTURE IND Prothrombin Time 14.7 Prothromb Time International 1.3 Ratio Activated Partial 44.4 Thromboplast Time Sodium Level 140 Potassium Level 4.0 Chloride Level 108 Carbon Dioxide Level 19.3 Anion Gap 13 Blood Urea Nitrogen 26 Creatinine 1.32 Estimat Glomerular Filtration 39 Rate Random Glucose 71 Calcium Level 6.1 Protein Corrected Calcium 8.3 Magnesium Level 1.1 Total Bilirubin 0.3 Aspartate Amino Transf 16 (AST/SGOT) Alanine Aminotransferase 11 (ALT/SGPT) Alkaline Phosphatase 160 Total Creatine Kinase 20 Troponin I 0.03 Total Protein 2.9 Albumin 0.8 Lipase 27 White Blood Count 7.2 Red Blood Count 3.13 Hemoglobin 10.0 Hematocrit 29.7 Mean Corpuscular Volume 94.9 Mean Corpuscular Hemoglobin 31.9 Mean Corpuscular Hemoglobin 33.7 Concent Red Cell Distribution Width 18.5 Platelet Count 38 Mean Platelet Volume 8.6 Neutrophils (%) (Auto) 95.0 Lymphocytes (%) (Auto) 3.2 Monocytes (%) (Auto) 1.7 Eosinophils (%) (Auto) 0.0 Basophils (%) (Auto) 0.1 Neutrophils # (Auto) 6.8 Lymphocytes # (Auto) 0.2 Monocytes # (Auto) 0.1 Eosinophils # (Auto) 0.0 Basophils # (Auto) 0.0 CBC Comment AUTO DIFF Differential Total Cells 100 Counted Neutrophils % (Manual) 56 Band Neutrophils % 24 Lymphocytes % 1 Monocytes % 1 Neutrophils # (Manual) 7.1 Metamyelocytes 18 Differential Comment FINAL DIFF MANUAL Toxic Granulation 1+ Toxic Vacuolation PRESENT Platelet Estimate LOW Platelet Morphology Comment NORMAL [place] Cells 1+ Acanthocytes OCC Lactic Acid Level 3.7 3.4 Prealbumin LESS THAN 3 Nasal Screen MRSA (PCR) NEGATIVE Test 12/25/16 12/25/16 12/25/16 04:45 12:10 12:35 Lactic Acid Level 3.0 3.3 White Blood Count 8.2 Red Blood Count 3.54 Hemoglobin 11.2 Hematocrit 33.8 Mean Corpuscular Volume 95.6 Mean Corpuscular Hemoglobin 31.5 Mean Corpuscular Hemoglobin 33.0 Concent Red Cell Distribution Width 18.8 Platelet Count 36 Mean Platelet Volume 8.9 Sodium Level 138 Potassium Level 4.3 Chloride Level 109 Carbon Dioxide Level 15.6 Anion Gap 13 Blood Urea Nitrogen 24 Creatinine 1.44 Estimat Glomerular Filtration 36 Rate Random Glucose 89 Calcium Level 6.2 Protein Corrected Calcium 8.0 Total Bilirubin 0.6 Aspartate Amino Transf 25 (AST/SGOT) Alanine Aminotransferase 15 (ALT/SGPT) Alkaline Phosphatase 128 Total Protein 3.6 Albumin 1.5 Date/Time Procedure Status Source Growth 12/24/16 22:51 Aerobic Blood Culture - Preliminary Resulted Blood Peripheral NO GROWTH IN 1 DAY 12/24/16 22:51 Anaerobic Blood Culture - Preliminary Resulted Blood Peripheral NO GROWTH IN 1 DAY 12/24/16 22:00 Urine Culture - Preliminary Resulted Urine Catheterized Urine Gram Negative Sourav Result Diagram: 12/25/16 1210 12/25/16 1210 Imaging Last Impressions Chest X-Ray 12/[id number]/162139 Signed Impressions: Service Date/Time: Saturday, December 24, 2016 22:49 - CONCLUSION: 1. [id number] and right central line in superior vena cava. Basal airspace disease in the lungs. No pneumothorax. Alban Farris MD Assessment and Plan Problem List: (1) Ovarian cancer Status: Chronic Plan: Unfortunate refractory disease. Family is agreeable to Hospice DNR/DNI once family arrives, Palliative care is following we thank them for assistance. therapeutic paracentesis is ordered medical management per Eligibility And Occupancy Interviewer and we thank them for assistance pain medication per EMR continuing Levophed gtt monitoring labs IV hydration Discussed Condition With Eligibility And Occupancy Interviewer EMRE Nicole infectious disease RN Dr. Phillip is aware of consult any further orders will follow. Ted Huerta Dec 25, 2016 15:04
[2016-12-25] MEDS ORDERED: ATROPINE SULFATE 1 MG/10 ML SYRINGE ONE ×2 (15:05→18:31)
[2016-12-25] MEDS ORDERED: LIDOCAINE HCL 2% 100 MG/5 ML SYRINGE ONE ×2 (15:05→18:31)
--- NOTE | 2016-12-25 16:39 | EKG ---
Date Performed: 12/24/2016 Time Performed: 22:10:33 PTAGE: 76 years EKG: SINUS TACHYCARDIA DIFFUSED NONSPECIFIC ST T-WAVE CHANGES MORE MARKED THAN PRIOR TRACING,ALS O LOSS OF VOLTAGE. Clinical correlation is recommended ABNORMAL ECG PREVIOUS TRACING : 11/09/2015 12.15 DOCTOR: Gold Dykes Interpretating Date/Time 12/25/2016 16:39:22
[2016-12-25] MEDS: SODIUM BICARBONATE 8.4% INJ 150 MEQ in WATER STERILE FOR INJ 850 ML IV SCH (17:50)
[2016-12-25] MEDS: MEROPENEM INJ 500 MG in SODIUM CHLORIDE 0.9% INJ 100 ML IV SCH ×2 (17:50→23:41)
[2016-12-25 18:33] LABS: LIPASE-PERITONEAL FLUID 5643 U/L
[2016-12-25 19:38] LABS: PERITONEAL FLUID PH 7.5; PERITONEAL HISTIOCYTES 8 %; PERITONEAL LYMPHS 16 %; PERITONEAL MONOS 8 %; PERITONEAL POLYS(SEGS) 68 %; PERITONEAL WBC 1548 /MM3 (0-10)
[2016-12-25 19:39] LABS: PERITONEAL FL SPECIFIC GRAVITY 1.014
--- NOTE | 2016-12-25 19:51 | RADRPT ---
EXAM DATE/TIME: 12/25/2016 18:50 [facility] COMPARISON: US GUIDED ABD PARACENTESIS, December 25, 2016, 15:36. CT ABDOMEN & PELVIS W/O CONTRAST, December 08, 2016, 17:38. INDICATIONS : Septic shock with multiorgan dysfunction,evaluate for abscess. ORAL CONTRAST: No oral contrast ingested. RADIATION DOSE: 10.47 CTDIvol (mGy) MEDICAL HISTORY : Renal failure, acute. Hypertension. Carcinoma, ovarian.breast cancer SURGICAL HISTORY : Hysterectomy. lumpectomy ENCOUNTER: Initial ACUITY: 1 day PAIN SCALE: 6/10 LOCATION: Abdomen TECHNIQUE: Volumetric scanning of the abdomen and pelvis was performed. Using automated exposure control and ad justment of the mA and/or kV according to patient size, radiation dose was kept as low as reasonably achievable to obtain optimal diagnostic quality images. FINDINGS: Significant free air has developed within the peritoneal cavity. The patient has undergone recent par acentesis however the amount of free air is greater than expected. Moderate amount of free fluid remains evident in the right upper margin at and along the paracolic gu tters especially on the right. Liver severely hypo-dense. Air-containing loops of bowel are seen. There are no discrete extraintestinal fluid collections conta ining loculated gas to suggest abscess. Severe anasarca has developed. Small to moderate bilateral pleural effusions with underlying consolidating air space disease has dev eloped in the lung bases. CONCLUSION: Acute pneumoperitoneum which may be related to paracentesis however the amount of air is greater than expected. Perforated viscus cannot be excluded. No evidence of discrete abscess. Interval development of severe anasarca, bilateral pleural effusions and bibasilar lower lobe consoli dating infiltrate. Dominguez Freed MD on December 25, 2016 at 19:42 Board Certified Radiologist. This report was verified electronically.
[2016-12-25 19:54] LABS: BILE-PERITONEAL FLUID NEG (NEG)
--- NOTE | 2016-12-25 20:04 | PD.CONS ---
Consult Service Palliative Care . Consult Requested By Dr. Min Tamayo . Primary Care Physician Silver Berry MD . Reason for Consultation a. To assist with evaluation and management of symptoms including: abdominal pain. b. To assist medical decision maker(s) with: better understanding of current medical conditions; weighing benefits/burdens of medical treatment options; making medical treatment decisions. . HPI History of Present Illness Mrs. Murphy is a 76-year-old female with past medical history significant for refractory stage IV ovarian cancer who has been followed by Dr. Phillip and most recently on 4th line chemotherapy. Unfortunately she has not responded to despite recent treatment with physically she is more symptomatic requiring more frequent paracentesis (about every 5 days). Additionally her CA 125 has increased to greater than 4000. She was last seen in our office on on 12/19/16 which was decided that after she had an abdominal drain placed for paracentesis and G-tube for chronic SBO that wanted to sign up for Hospice. Patient presented to [facility] emergency department on 12/24/16 with worsening lethargy for 2 days prior to admission. Per patient's she has not been eating or drinking well. In the emergency room, the patient was noted to be hypotensive prior to arrival with systolic blood pressure in the 70s, heart rate in the 140s. At the time of my evaluation patient is in the ICU has received up to 5.5 L of fluid out of which 4 L of bolus and then maintenance IVF. In addition patient also recd albumin iv. Patient's urine output has been dwindling and at present time is almost 0. Patient has pitting edema as well as mottling of her lower extremities noted. Patient is extremely uncomfortable and is writhing in pain despite pain medications being given to her. Patient is currently on Levophed 15 mics. Infectious disease is consulted for evaluation and management of septic shock, UTI in a patient with advanced ovarian cancer with antibiotic recommendations. Plan for CT abdomen/pelvis to evaluate for possible intra- abdominal abscess and plan for ultrasound guided paracentesis (diagnostic and therapeutic). Patient has creatinine 1.44, albumin 1.5, platelets 36. I was stopped by EMRE Ragsdale, Dr. Monika Tamayo and Dr. Karoline Tamayo to request palliative care assistance in further clarification of treatment goals. Palliative care and [employer] oncology met with patient's , sister and daughter to provide medical update. Family anticipate arrival of the patient's other children later this evening. They desire continued aggressive care at this time including FULL CODE until additional family members arrive. They are in agreement to proceed with paracentesis in hopes that this will improve the patient's intractable abdominal pain. Palliative care number provided, will further clarify goals once family has arrived. Anticipate probable transition to comfort focused care in the coming day(s). . Function/Cognitive Trajectory Patient has had ongoing trajectory of decline despite ongoing chemotherapy. Past Family Social History Coded Allergies: *MDRO Multi-Drug Resistant Organism (Verified Adverse Reaction, Unknown, ) ESBL E. coli (urine) - 08/27/16 Past Medical History Stage IV refractory Ovarian Cancer despite line 4 chemotherapy HTN currently not needing medications Osteoarthritis hyperlipidemia . Past Surgical History Paracentesis, multiple Hysterectomy with BSO and omentectomy with bowel resection and reanastomosis..tumor debulking Colectomies Lumpectomy Right breast for breast cancer Cataracts Left knee surgery Tonsillectomy Colonoscopy 2002 . Reported Medications Reported Medications Reported Meds & Active Scripts Active Zofran Liq (Ondansetron HCl) 4 Mg/5 Ml Soln 4 Mg PO Q6H PRN 3-in-1 Commode (Device) 1 Mis Mis Units Klonopin (Clonazepam) 0.5 Mg Tab 0.5 Mg PO Q12HR PRN . Current Medications Medications (Trade) Dose Ordered Sig/Rodger Route Start Time Stop Time Status Last Admin (Brethine Inj) 1 mg UNSCH PRN SQ 12/25/16 00:15 (NS Flush) 2 ml UNSCH PRN IV FLUSH 12/25/16 00:45 (NS Flush) 2 ml BID IV FLUSH 12/25/16 09:00 12/25/16 08:42 (Tylenol) 650 mg Q6H PRN PO 12/25/16 00:45 (Pepcid Inj) 10 mg Q12HR IV PUSH 12/25/16 09:00 12/25/16 08:41 (Zofran Inj) 4 mg Q6H PRN IV 12/25/16 00:45 12/25/16 10:33 (Reglan Inj) 10 mg Q6H PRN IV 12/25/16 00:45 12/25/16 13:35 (Colace) 100 mg BID PO 12/25/16 09:00 (Ambien) 5 mg HS PRN PO 12/25/16 00:45 Miscellaneous Information 1 Q361D XX 12/25/16 00:45 (Chlorhexidine 2% Cloth) 3 pack Taper DAILY@04 TOP 12/25/16 04:00 12/21/17 03:59 12/25/16 04:00 (Chlorhexidine 2% Cloth) 3 pack UNSCH PRN TOP 12/25/16 00:45 Hydrocortisone Sodium Succinate 50 mg 50 mg Q6H IV 12/25/16 01:00 12/25/16 12:25 (Levophed-Dextrose Drip) 250 ml @ 0 mls/hr TITRATE IV 12/25/16 00:45 12/25/16 17:26 Terbutaline Sulfate 1 mg 1 mg UNSCH PRN SQ 12/25/16 00:45 Sodium Chloride 1,000 ml @ 0 mls/hr BOLUS IV 12/25/16 11:00 12/25/16 11:15 Linezolid 300 ml @ 300 mls/hr Q12H IV 12/25/16 14:00 12/25/16 14:31 (Mycamine Inj/NS Inj) 100 ml @ 100 mls/hr Q24H IV 12/25/16 15:00 (Morphine Inj) 4 mg Q2H PRN IV 12/25/16 14:45 Fentanyl Citrate 50 mcg 50 mcg Q2HR PRN IV PUSH 12/25/16 14:00 12/25/16 14:33 Meropenem 500 mg/ Sodium Chloride 100 ml @ 200 mls/hr Q8H IV 12/25/16 15:00 12/25/16 17:50 (Sodium Bicarbonate 8.4% Inj/Sterile Water For Inj) 1,000 ml @ 150 mls/hr Q6H40M IV 12/25/16 15:00 12/25/16 17:50 (Albumin 25% Inj) 12.5 gm Q6HR IV 12/25/16 15:00 . Family History Mother and sister living. . Substance Use Tobacco: Never smoked. Alcohol: occasional alcohol use. Prescription med abuse: none. Illicits: none. . Psychosocial History . 3 children. Mother is still alive. . Spiritual/Cultural Factors Holiness jessie. . Living Will: Never completed Health Care Surrogate: Never completed Durable Power of Rv Service Technician: Never completed Health Care Surrogate(s): Patient is unable to participate in conversation today given intractable pain. In the absence of written advance directives, health care proxy decision-making falls to the patient's spouse. Ethical and Legal Issues Patient is unable to participate in conversation today given intractable pain. In the absence of written advance directives, health care proxy decision-making falls to the patient's spouse. Physical Exam Vital Signs Date Time Temp Pulse Resp B/P Pulse Ox O2 Delivery O2 Flow Rate FiO2 12/25/16 14:00 124 12/25/16 12:00 97.9 110 17 108/60 98 12/25/16 12:00 110 12/25/16 10:00 118 12/25/16 08:00 117 12/25/16 08:00 98.4 116 17 108/60 95 12/25/16 07:00 97 Nasal Cannula 2.00 12/25/16 06:00 116 12/25/16 04:00 108 12/25/16 04:00 97.7 108 14 96/52 98 12/25/16 03:15 94.3 111 15 88/53 97 12/25/16 03:15 112 15 95/53 94 Nasal Cannula 3 12/25/16 03:15 111 12/25/16 03:15 98 Nasal Cannula 3.00 12/25/16 03:04 111 15 88/53 94 Nasal Cannula 3 12/25/16 02:38 109 15 87/54 96 Nasal Cannula 3 12/25/16 01:35 125 15 86/56 94 Nasal Cannula 3 12/25/16 01:30 125 15 77/50 93 Nasal Cannula 3 12/25/16 00:54 117 15 73/50 94 Nasal Cannula 3 12/25/16 00:46 20 94 3 12/25/16 00:35 117 20 79/49 93 Nasal Cannula 3 12/25/16 00:15 115 20 64/48 95 Nasal Cannula 3 12/24/16 23:22 111 25 96 Nasal Cannula 3 12/24/16 23:21 111 15 77/42 96 Nasal Cannula 3 12/24/16 23:06 116 25 88/51 96 Nasal Cannula 3 12/24/16 22:30 97.5 130 25 78/ 91 12/24/16 22:30 94 Nasal Cannula 3 12/24/16 12/25/16 19:00 07:00 Intake Total 5105 ml Output Total 262 ml Balance 4843 ml Intake Oral 100 ml IV Total 4505 ml Albumin 500 ml Output Urine Total 162 ml Emesis 100 ml Exam GENERAL: Thin, chronically, critically ill appearing patient, with severe abdominal pain - moaning and crying. SKIN: Bilateral UE ecchymosis. Mottling of feet and knees noted. Feet cool to touch. HEAD: Atraumatic. Normocephalic. No temporal or scalp tenderness. EYES: Pupils equal round and reactive. Extraocular motions intact. No scleral icterus. No injection or drainage. ENT: Nose without bleeding, purulent drainage or septal hematoma. Throat without erythema, tonsillar hypertrophy or exudate. NECK: Trachea midline. CARDIOVASCULAR: tachycardic. RESPIRATORY: Clear to auscultation. Breath sounds equal bilaterally decreased in the bases. GASTROINTESTINAL: Abdomen distended, tender to light palpation, + ascites, hypoactive BS. MUSCULOSKELETAL: Extremities with 2-3+ pitting edema. NEUROLOGICAL: Lethargic, moaning in pain. Moves all 4 extremities. . Diagnostic Tests Laboratory Laboratory Tests Test 12/24/16 12/24/16 12/25/16 12/25/16 22:00 22:51 00:15 03:40 Urine Color YELLOW (YELLW/STRAW) Urine Turbidity CLOUDY (CLEAR) Urine pH 6.0 (5.0-8.5) Urine Specific [place] 1.025 (1.002-1.035) Urine Protein 100 mg/dL (NEG-TRACE) Urine Glucose (UA) NEG mg/dL (NEG) Urine Ketones NEG mg/dL (NEG) Urine Occult Blood MOD (NEG) Urine Nitrite NEG (NEG) Urine Bilirubin NEG (NEG) Urine Urobilinogen LESS THAN 2.0 MG/DL (LESS THAN 2.0) Urine Leukocyte Esterase LARGE (NEG) Urine RBC 131 /hpf (0-3) Urine WBC /hpf (0-5) Urine WBC Clumps MANY (NONE) Urine Renal Epithelial Cells 41 /hpf (NONE) Urine Bacteria MOD /hpf (NONE) Urine Hyaline Casts 36 /lpf (RARE) Urine Mucus FEW /lpf (OCC) Microscopic Urinalysis Comment CATH-CULTURE IND Prothrombin Time 14.7 SEC (9.8-11.6) Prothromb Time International 1.3 RATIO Ratio Activated Partial 44.4 SEC Thromboplast Time (24.3-30.1) Sodium Level 140 MEQ/L (136-145) Potassium Level 4.0 MEQ/L (3.5-5.1) Chloride Level 108 MEQ/L (98-107) Carbon Dioxide Level 19.3 MEQ/L (21.0-32.0) Anion Gap 13 MEQ/L (5-15) Blood Urea Nitrogen 26 MG/DL (7-18) Creatinine 1.32 MG/DL (0.50-1.00) Estimat Glomerular Filtration 39 ML/MIN (>89) Rate Random Glucose 71 MG/DL (74-106) Calcium Level 6.1 MG/DL (8.5-10.1) Protein Corrected Calcium 8.3 MG/DL (8.5-10.1) Magnesium Level 1.1 MG/DL (1.5-2.5) Total Bilirubin 0.3 MG/DL (0.2-1.0) Aspartate Amino Transf 16 U/L (15-37) (AST/SGOT) Alanine Aminotransferase 11 U/L (10-53) (ALT/SGPT) Alkaline Phosphatase 160 U/L (45-117) Total Creatine Kinase 20 U/L (26-192) Troponin I 0.03 NG/ML (0.02-0.05) Total Protein 2.9 GM/DL (6.4-8.2) Albumin 0.8 GM/DL (3.4-5.0) Lipase 27 U/L (73-393) White Blood Count 7.2 TH/MM3 (4.0-11.0) Red Blood Count 3.13 MIL/MM3 (4.00-5.30) Hemoglobin 10.0 GM/DL (11.6-15.3) Hematocrit 29.7 % (35.0-46.0) Mean Corpuscular Volume 94.9 FL (80.0-100.0) Mean Corpuscular Hemoglobin 31.9 PG (27.0-34.0) Mean Corpuscular Hemoglobin 33.7 % Concent (32.0-36.0) Red Cell Distribution Width 18.5 % (11.6-17.2) Platelet Count 38 TH/MM3 (150-450) Mean Platelet Volume 8.6 FL (7.0-11.0) Neutrophils (%) (Auto) 95.0 % (16.0-70.0) Lymphocytes (%) (Auto) 3.2 % (9.0-44.0) Monocytes (%) (Auto) 1.7 % (0.0-8.0) Eosinophils (%) (Auto) 0.0 % (0.0-4.0) Basophils (%) (Auto) 0.1 % (0.0-2.0) Neutrophils # (Auto) 6.8 TH/MM3 (1.8-7.7) Lymphocytes # (Auto) 0.2 TH/MM3 (1.0-4.8) Monocytes # (Auto) 0.1 TH/MM3 (0-0.9) Eosinophils # (Auto) 0.0 TH/MM3 (0-0.4) Basophils # (Auto) 0.0 TH/MM3 (0-0.2) CBC Comment AUTO DIFF Differential Total Cells 100 Counted Neutrophils % (Manual) 56 % (16-70) Band Neutrophils % 24 % (0-6) Lymphocytes % 1 % (9-44) Monocytes % 1 % (0-8) Neutrophils # (Manual) 7.1 TH/MM3 (1.8-7.7) Metamyelocytes 18 % (0-1) Differential Comment FINAL DIFF MANUAL Toxic Granulation 1+ (NORMAL) Toxic Vacuolation PRESENT (NONE SEEN) Platelet Estimate LOW (NORMAL) Platelet Morphology Comment NORMAL (NORMAL) [place] Cells 1+ (NORMAL) Acanthocytes OCC (NORMAL) Lactic Acid Level 3.7 mmol/L 3.4 mmol/L (0.4-2.0) (0.4-2.0) Prealbumin LESS THAN 3 MG/DL (20-40) Nasal Screen MRSA (PCR) NEGATIVE (NEGATIVE) Test 12/25/16 12/25/16 12/25/16 12/25/16 04:45 12:10 12:35 16:10 Lactic Acid Level 3.0 mmol/L 3.3 mmol/L (0.4-2.0) (0.4-2.0) White Blood Count 8.2 TH/MM3 (4.0-11.0) Red Blood Count 3.54 MIL/MM3 (4.00-5.30) Hemoglobin 11.2 GM/DL (11.6-15.3) Hematocrit 33.8 % (35.0-46.0) Mean Corpuscular Volume 95.6 FL (80.0-100.0) Mean Corpuscular Hemoglobin 31.5 PG (27.0-34.0) Mean Corpuscular Hemoglobin 33.0 % Concent (32.0-36.0) Red Cell Distribution Width 18.8 % (11.6-17.2) Platelet Count 36 TH/MM3 (150-450) Mean Platelet Volume 8.9 FL (7.0-11.0) Sodium Level 138 MEQ/L (136-145) Potassium Level 4.3 MEQ/L (3.5-5.1) Chloride Level 109 MEQ/L (98-107) Carbon Dioxide Level 15.6 MEQ/L (21.0-32.0) Anion Gap 13 MEQ/L (5-15) Blood Urea Nitrogen 24 MG/DL (7-18) Creatinine 1.44 MG/DL (0.50-1.00) Estimat Glomerular Filtration 36 ML/MIN (>89) Rate Random Glucose 89 MG/DL (74-106) Calcium Level 6.2 MG/DL (8.5-10.1) Protein Corrected Calcium 8.0 MG/DL (8.5-10.1) Total Bilirubin 0.6 MG/DL (0.2-1.0) Aspartate Amino Transf 25 U/L (15-37) (AST/SGOT) Alanine Aminotransferase 15 U/L (10-53) (ALT/SGPT) Alkaline Phosphatase 128 U/L (45-117) Total Protein 3.6 GM/DL (6.4-8.2) Albumin 1.5 GM/DL (3.4-5.0) Peritoneal Fluid Total Protein 1.5 GM/DL Peritoneal Fluid Albumin 0.7 G/DL Peritoneal Fluid LDH 937 U/L Peritoneal Fluid Glucose LESS THAN 1 MG/DL Peritoneal Fluid Amylase 778 U/L Peritoneal Fluid Lipase 5643 U/L Result Diagram: 12/25/16 1210 12/25/16 1210 Microbiology Microbiology Date/Time Procedure Status Source Growth 12/24/16 22:00 Urine Culture - Preliminary Resulted Urine Catheterized Urine Gram Negative Sourav 12/24/16 22:45 Aerobic Blood Culture - Preliminary Resulted Blood Peripheral NO GROWTH IN 1 DAY 12/24/16 22:45 Anaerobic Blood Culture - Preliminary Resulted Blood Peripheral NO GROWTH IN 1 DAY 12/24/16 22:51 Aerobic Blood Culture - Preliminary Resulted Blood Peripheral NO GROWTH IN 1 DAY 12/24/16 22:51 Anaerobic Blood Culture - Preliminary Resulted Blood Peripheral NO GROWTH IN 1 DAY 12/25/16 16:10 Gram Stain Received Fluid Peritoneal Fluid Pending 12/25/16 16:10 Body Fluid Culture Received Fluid Peritoneal Fluid Pending 12/25/16 16:10 Acid Fast Stain Received Fluid Peritoneal Fluid Pending 12/25/16 16:10 Mycobacterial Culture Received Fluid Peritoneal Fluid Pending 12/25/16 16:10 Fungal Smear Received Fluid Peritoneal Fluid Pending 12/25/16 16:10 Fungal Culture Received Fluid Peritoneal Fluid Pending 12/25/16 16:40 Aerobic Blood Culture Received Blood Other Pending 12/25/16 16:40 Anaerobic Blood Culture Received Blood Other Pending 12/25/16 18:43 Aerobic Blood Culture Received Blood Other Pending 12/25/16 18:43 Anaerobic Blood Culture Received Blood Other Pending Imaging Last Impressions Chest X-Ray 12/24/162139 Signed Impressions: Service Date/Time: Saturday, December 24, 2016 22:49 - CONCLUSION: 1. [id number] and right central line in superior vena cava. Basal airspace disease in the lungs. No pneumothorax. Alban Farris MD Patient/Family Conference Present at Family Conference: Ted Huerta and I met with , sister and daughter. . Family Conference Time (mins): 25 Family Conference Location: Consult Room Issues Discussed: * Palliative care role, purpose, approach * Additional medical, psychosocial, and spiritual history * Patients general health, functional status, and cognitive changes in the months leading up to the current hospitalization * Patient/family understanding of the current medical problems * Patient/family understanding of prognosis * Patients goals of care as best understood from advance directives and/or conversations and/or values * Current medical treatment options and benefits/burdens of those options * Likely scenarios comparing ongoing aggressive care with a transition to comfort measures only * Questions answered to the best of my ability * Palliative care contact information provided Assessment and Plan Disease Oriented Problem List: (1) Ovarian cancer (2) Malignant ascites (3) UTI (urinary tract infection) (4) Nutrition, metabolism, and development symptoms (5) Thrombocytopenia Symptom Scale: (1) Debility 0-10 Scale: Unable to quantify (2) Abdominal pain 0-10 Scale: 10 Pertinent Non-Medical Issues Psychosocial: . Supported by mother, children, sister and other family members. Spiritual: Holiness jessie. Legal: Patient is unable to participate in conversation today given intractable pain. In the absence of written advance directives, health care proxy decision- making falls to the patient's spouse. Ethical issues impacting care: No known concerns at this time. . Important Contacts * Francisco J Murphy, spouse: [phone] or [phone] * Pascale Bermudez, sister: [phone] . Prognosis Overall prognosis is poor given advanced retractable ovarian cancer. Life expectancy less than 6 months. Now with septic shock. . Code Status: Full Code Plan * Patient is unable to participate in conversation today given intractable pain. In the absence of written advance directives, health care proxy decision- making falls to the patient's spouse. * FULL CODE for now anticipate change in code status once additional family members arrive. * 12/25/16 Palliative care and [employer] oncology met with patient's , sister and daughter to provide medical update. Family anticipate arrival of the patient's other children later this evening. They desire continued aggressive care at this time including FULL CODE until additional family members arrive. They are in agreement to proceed with paracentesis in hopes that this will improve the patient's intractable abdominal pain. Palliative care number provided, will further clarify goals once family has arrived. Anticipate probable transition to comfort focused care in the coming day(s). * SYMPTOMS: intractable abdominal pain: increased pain medication orders written by Dr. Tamayo, will monitor need and effect. * Palliative care number provided. * Palliative care will continue to follow throughout hospital course to assist with symptom management and further clarification of treatment goals. . Thank you for the opportunity to participate in the care of Ms. Murphy. MYAH HICKS Dec 25, 2016 20:04
[2016-12-25] MEDS ORDERED: VANCOMYCIN INJ 1,500 MG in SODIUM CHLORID 0.9% 500 ML INJ 500 ML IV SCH (23:00)
[2016-12-25] MEDS: ALBUMIN HUMAN 25% 12.5 GM/50 ML BAGP IV SCH (23:40)
[2016-12-26] VITALS (19 sets, daily range): BP systolic 65–108; BP diastolic 43–67; PULSE 106–132; RESP 10–13; TEMP 95.9–99.1; O2SAT 96–99
[2016-12-26] MEDS: SODIUM BICARBONATE 8.4% INJ 150 MEQ in WATER STERILE FOR INJ 850 ML IV SCH ×2 (00:34→03:32)
[2016-12-26] MEDS: HYDROCORTISONE SOD SUCCINATE 100 MG VIAL IV SCH ×2 (00:34→06:33)
[2016-12-26] MEDS: NOREPINEPHRINE-DEXTROSE DRIP 250 ML IV SCH ×3 (00:39→07:01)
[2016-12-26] MEDS: LINEZOLID 600 MG PREMIX 300 ML IV SCH (01:27)
[2016-12-26] MEDS: CHLORHEXIDINE GLUCONATE 2 % 1 PACK (2 CLOTHS) TOP SCH (04:00)
[2016-12-26] MEDS: MORPHINE SULFATE 4 MG/ML INJ IV PRN ×3 (04:02→10:57)
[2016-12-26] MEDS ORDERED: ALBUMIN HUMAN 5% 25 GM/500 ML BOTTLE IV SCH (04:30)
[2016-12-26 05:35] LABS: AUTOMATED NEUTROPHIL # 13.2 TH/MM3 (1.8-7.7); BASOPHIL % 0.2 % (0.0-2.0); EOSINOPHIL % 0.2 % (0.0-4.0); HEMATOCRIT 28.8 % (35.0-46.0); LYMPH % 2.6 % (9.0-44.0); LYMPHOCYTE # 0.4 TH/MM3 (1.0-4.8); MEAN CELL VOLUME 95.3 FL (80.0-100.0); MEAN CORPUSCULAR HEMOGLOBIN 31.4 PG (27.0-34.0); MEAN CORPUSCULAR HGB CONC 32.9 % (32.0-36.0); MONO % 0.7 % (0.0-8.0); NEUT % 96.3 % (16.0-70.0); RED BLOOD COUNT 3.02 MIL/MM3 (4.00-5.30); RED CELL DISTRIBUTION WIDTH 19.2 % (11.6-17.2); WHITE BLOOD COUNT 13.7 TH/MM3 (4.0-11.0)
[2016-12-26 05:43] LABS: HEMO FLAGS AUTO DIFF
[2016-12-26 05:45] LABS: PLATELET COUNT 16 TH/MM3 (150-450)
[2016-12-26 05:54] LABS: INTERNATIONAL NORMALIZED RATIO 1.8 RATIO; PROTHROMBIN TIME - PATIENT 20.8 SEC (9.8-11.6)
[2016-12-26 05:57] LABS: APTT (PATIENT) 102.9 SEC (24.3-30.1)
[2016-12-26 06:04] LABS: BICARBONATE 17.3 MEQ/L (21.0-32.0); MAGNESIUM 1.1 MG/DL (1.5-2.5); POTASSIUM 4.5 MEQ/L (3.5-5.1); TOTAL BILIRUBIN ADULT 0.7 MG/DL (0.2-1.0)
[2016-12-26 06:21] LABS: CALCIUM-PROTEIN CORRECTED 7.2 MG/DL (8.5-10.1)
[2016-12-26] MEDS: ALBUMIN HUMAN 25% 12.5 GM/50 ML BAGP IV SCH (06:33)
[2016-12-26] MEDS: MEROPENEM INJ 500 MG in SODIUM CHLORIDE 0.9% INJ 100 ML IV SCH (06:33)
[2016-12-26 07:34] LABS: BANDS 68 % (0-6); METAMYELOCYTES 16 % (0-1); NEUTROPHIL # MANUAL DIFF 13.3 TH/MM3 (1.8-7.7); POLYS (SEG NEUTROPHILS) 13 % (16-70); WBC DIFF SAMPLE 100
[2016-12-26 07:36] LABS: DOHLE BODIES PRESENT (NONE SEEN); KERATOCYTES OCC (NORMAL); PLATELET ESTIMATE SMEAR RARE (NORMAL); TOXIC VACUOLATION PRESENT (NONE SEEN)
[2016-12-26 07:37] LABS: PLATELET MORPHOLOGY NORMAL (NORMAL); SCAN/DIFF FINAL DIFF MANUAL
--- NOTE | 2016-12-26 07:55 | RADRPT ---
EXAM DATE/TIME: 12/25/2016 15:36 [facility] COMPARISON: No previous studies available for comparison. INDICATIONS : Ascites. MEDICAL HISTORY : Hypertension. Breast cancer. Ovarian cancer. SURGICAL HISTORY : Cataract. Chemotherapy. Paracentesis. ENCOUNTER: [facility]ela ACUITY: 1 week PAIN SCORE: Non-responsive LOCATION: Right lower quadrant FLUID: Total volume of 2,200 cc of cloudy, yellow fluid was removed. Fluid was sent to lab for ordered studies. Post procedure scanning reveals no hematoma or other complication. TECHNIQUE: 1. Ultrasound guidance for abdominal paracentesis. 2. Paracentesis. The risks, benefits, and alternatives to ultrasound guided paracentesis were explained to the patient in detail including the risk of bleeding and infection. Written and verbal informed consent was obt ained. With the patient on the ultrasound table, ultrasound imaging was used to select the most appropriate approach for paracentesis. Overlying skin was prepped and draped in the usual sterile fashion and wi th a local anesthetic, a dermatotomy was made with an 11 blade scalpel. A 6 [place] [id number] ca theter was introduced into the peritoneal cavity and fluid was collected. The patient tolerated the procedure well and left the ultrasound suite in stable condition. CONCLUSION: Uncomplicated ultrasound guided paracentesis. Thiago Zaragoza MD on December 26, 2016 at 7:53 Board Certified Radiologist. This report was verified electronically.
[2016-12-26] MEDS: SODIUM CHLORIDE 0.9% FLUSH 5 ML FLUSH IV FLUSH SCH ×2 (09:00→20:48)
[2016-12-26] MEDS: FAMOTIDINE 20 MG/2 ML VIAL IV PUSH SCH (09:00)
[2016-12-26] MEDS: DOCUSATE SODIUM 100 MG CAP PO SCH (09:00)
[2016-12-26] MEDS ORDERED: MORPHINE SULFATE 8 MG/ML INJ IV PUSH PRN (10:15)
[2016-12-26] MEDS ORDERED: LORazepam 2 MG/ML VIAL IV PUSH PRN (10:15)
--- NOTE | 2016-12-26 10:38 | HHI.HCPN ---
Reason for visit a. To assist with evaluation and management of symptoms including: abdominal pain, dyspnea. b. To assist medical decision maker(s) with: better understanding of current medical conditions; weighing benefits/burdens of medical treatment options; making medical treatment decisions. . (MYAH HICKS) Subjective/Interval History Patient seen and examined in ICU. Family (, children and sister) at bedside. Patient is now unresponsive with agonal breathing. She appears to be imminently dying. Tmax 99.1. Tachycardic rate 120-130. Remains hypotensive on Levophed at 15. On oxygen via NC. WBC increased from 8.2 to 13.7. Platelets dropped significantly to 16 from 36. Creatinine increased to 1.77. Lactic Acid rising to 5.2. LFTs also worsening overnight. CT abdomen and pelvis revealed free air, possible perforation. No obvious abscess. . Family/friend interactions Met with , 2 daughters, son, grandson and sister in conference room. Dr. Phillip joined us for a portion of this meeting. Medical update provided, including labs and imaging results. Reviewed clinical change since yesterday. Discussed options in transition to comfort measures. Questions answered to their satisfaction. Patient appears to be imminently dying. Family desires transition to comfort measures. They have elected NO CODE. They would like to wait until patients mother arrives to turn of Levophed. Family requests supervisor model making support, they will visit. Family is very appreciative of time spent and all are in agreement with plan of care to transition to comfort measures once mother arrives. . (MYAH HICKS) Advance Directives Living Will: Never completed Health Care Surrogate: Never completed Durable Power of Sand Shoveler: Never completed (MYAH HICKS) Advance Directive Specifics Health Care Surrogate(s): Patient is unable to participate in conversation today given intractable pain. In the absence of written advance directives, health care proxy decision-making falls to the patient's spouse. Significant change in goals: NO CODE. Family elects transition to comfort measures only once mother arrives. . (MYAH HICKS) Objective Vital Signs Date Time Temp Pulse Resp B/P Pulse Ox O2 Delivery O2 Flow Rate FiO2 12/26/16 10:00 120 90/49 12/26/16 10:00 120 12/26/16 09:00 121 97/51 12/26/16 08:00 99.1 124 12 99/54 96 12/26/16 08:00 124 99/54 12/26/16 08:00 106 12/26/16 07:00 97 Nasal Cannula 2.00 12/26/16 07:00 130 102/52 12/26/16 06:00 132 12/26/16 06:00 132 108/67 12/26/16 05:00 128 107/59 12/26/16 04:00 124 12/26/16 04:00 97.2 122 13 91/59 97 12/26/16 04:00 122 91/59 12/26/16 03:00 118 93/59 12/26/16 02:00 114 12/26/16 02:00 114 101/56 12/26/16 01:00 110 101/49 12/26/16 00:00 95.9 110 10 101/57 99 12/26/16 00:00 106 12/26/16 00:00 110 101/57 12/25/16 23:00 116 97/52 12/25/16 22:06 99 Nasal Cannula 12/25/16 22:00 96.0 106 12 89/61 99 12/25/16 22:00 106 12/25/16 22:00 106 89/61 12/25/16 21:00 106 96/61 12/25/16 20:00 106 92/50 12/25/16 20:00 106 12/25/16 20:00 96.6 106 14 92/50 98 12/25/16 19:00 110 104/65 12/25/16 19:00 99 Nasal Cannula 2.00 12/25/16 18:00 112 12/25/16 16:00 120 12/25/16 16:00 97.0 120 26 111/78 97 12/25/16 14:00 124 12/25/16 12:00 97.9 110 17 108/60 98 12/25/16 12:00 110 Intake & Output 12/26/16 12/26/16 07:00 19:00 Intake Total 5354 ml Output Total 59 ml Balance 5295 ml Intake Oral 0 ml IV Total 5354 ml Output Urine Total 59 ml # Bowel Movements 0 Physical Exam GENERAL: Thin, chronically, critically ill appearing patient, unresponsive today. SKIN: Bilateral UE ecchymosis. Mottling of feet and knees noted. Feet cool to touch. EYES: eyes closed. CARDIOVASCULAR: tachycardic. RESPIRATORY: Breath sounds equal bilaterally decreased in the bases. Agonal breathing noted. GASTROINTESTINAL: Abdomen distended, + ascites, hypoactive BS. MUSCULOSKELETAL: Extremities with 2-3+ pitting edema. NEUROLOGICAL: Unresponsive. . (MYAH HICKS) Diagnostic Tests Laboratory Laboratory Tests Test 12/24/16 12/24/16 12/25/16 12/25/16 22:00 22:51 00:15 03:40 Urine Color YELLOW (YELLW/STRAW) Urine Turbidity CLOUDY (CLEAR) Urine pH 6.0 (5.0-8.5) Urine Specific [place] 1.025 (1.002-1.035) Urine Protein 100 mg/dL (NEG-TRACE) Urine Glucose (UA) NEG mg/dL (NEG) Urine Ketones NEG mg/dL (NEG) Urine Occult Blood MOD (NEG) Urine Nitrite NEG (NEG) Urine Bilirubin NEG (NEG) Urine Urobilinogen LESS THAN 2.0 MG/DL (LESS THAN 2.0) Urine Leukocyte Esterase LARGE (NEG) Urine RBC 131 /hpf (0-3) Urine WBC /hpf (0-5) Urine WBC Clumps MANY (NONE) Urine Renal Epithelial Cells 41 /hpf (NONE) Urine Bacteria MOD /hpf (NONE) Urine Hyaline Casts 36 /lpf (RARE) Urine Mucus FEW /lpf (OCC) Microscopic Urinalysis Comment CATH-CULTURE IND Prothrombin Time 14.7 SEC (9.8-11.6) Prothromb Time International 1.3 RATIO Ratio Activated Partial 44.4 SEC Thromboplast Time (24.3-30.1) Sodium Level 140 MEQ/L (136-145) Potassium Level 4.0 MEQ/L (3.5-5.1) Chloride Level 108 MEQ/L (98-107) Carbon Dioxide Level 19.3 MEQ/L (21.0-32.0) Anion Gap 13 MEQ/L (5-15) Blood Urea Nitrogen 26 MG/DL (7-18) Creatinine 1.32 MG/DL (0.50-1.00) Estimat Glomerular Filtration 39 ML/MIN (>89) Rate Random Glucose 71 MG/DL (74-106) Calcium Level 6.1 MG/DL (8.5-10.1) Protein Corrected Calcium 8.3 MG/DL (8.5-10.1) Magnesium Level 1.1 MG/DL (1.5-2.5) Total Bilirubin 0.3 MG/DL (0.2-1.0) Aspartate Amino Transf 16 U/L (15-37) (AST/SGOT) Alanine Aminotransferase 11 U/L (10-53) (ALT/SGPT) Alkaline Phosphatase 160 U/L (45-117) Total Creatine Kinase 20 U/L (26-192) Troponin I 0.03 NG/ML (0.02-0.05) Total Protein 2.9 GM/DL (6.4-8.2) Albumin 0.8 GM/DL (3.4-5.0) Lipase 27 U/L (73-393) White Blood Count 7.2 TH/MM3 (4.0-11.0) Red Blood Count 3.13 MIL/MM3 (4.00-5.30) Hemoglobin 10.0 GM/DL (11.6-15.3) Hematocrit 29.7 % (35.0-46.0) Mean Corpuscular Volume 94.9 FL (80.0-100.0) Mean Corpuscular Hemoglobin 31.9 PG (27.0-34.0) Mean Corpuscular Hemoglobin 33.7 % Concent (32.0-36.0) Red Cell Distribution Width 18.5 % (11.6-17.2) Platelet Count 38 TH/MM3 (150-450) Mean Platelet Volume 8.6 FL (7.0-11.0) Neutrophils (%) (Auto) 95.0 % (16.0-70.0) Lymphocytes (%) (Auto) 3.2 % (9.0-44.0) Monocytes (%) (Auto) 1.7 % (0.0-8.0) Eosinophils (%) (Auto) 0.0 % (0.0-4.0) Basophils (%) (Auto) 0.1 % (0.0-2.0) Neutrophils # (Auto) 6.8 TH/MM3 (1.8-7.7) Lymphocytes # (Auto) 0.2 TH/MM3 (1.0-4.8) Monocytes # (Auto) 0.1 TH/MM3 (0-0.9) Eosinophils # (Auto) 0.0 TH/MM3 (0-0.4) Basophils # (Auto) 0.0 TH/MM3 (0-0.2) CBC Comment AUTO DIFF Differential Total Cells 100 Counted Neutrophils % (Manual) 56 % (16-70) Band Neutrophils % 24 % (0-6) Lymphocytes % 1 % (9-44) Monocytes % 1 % (0-8) Neutrophils # (Manual) 7.1 TH/MM3 (1.8-7.7) Metamyelocytes 18 % (0-1) Differential Comment FINAL DIFF MANUAL Toxic Granulation 1+ (NORMAL) Toxic Vacuolation PRESENT (NONE SEEN) Platelet Estimate LOW (NORMAL) Platelet Morphology Comment NORMAL (NORMAL) Leslie Cells 1+ (NORMAL) Acanthocytes OCC (NORMAL) Lactic Acid Level 3.7 mmol/L 3.4 mmol/L (0.4-2.0) (0.4-2.0) Prealbumin LESS THAN 3 MG/DL (20-40) Nasal Screen MRSA (PCR) NEGATIVE (NEGATIVE) Test 12/25/16 12/25/16 12/25/16 12/25/16 04:45 12:10 12:35 16:10 Lactic Acid Level 3.0 mmol/L 3.3 mmol/L (0.4-2.0) (0.4-2.0) White Blood Count 8.2 TH/MM3 (4.0-11.0) Red Blood Count 3.54 MIL/MM3 (4.00-5.30) Hemoglobin 11.2 GM/DL (11.6-15.3) Hematocrit 33.8 % (35.0-46.0) Mean Corpuscular Volume 95.6 FL (80.0-100.0) Mean Corpuscular Hemoglobin 31.5 PG (27.0-34.0) Mean Corpuscular Hemoglobin 33.0 % Concent (32.0-36.0) Red Cell Distribution Width 18.8 % (11.6-17.2) Platelet Count 36 TH/MM3 (150-450) Mean Platelet Volume 8.9 FL (7.0-11.0) Sodium Level 138 MEQ/L (136-145) Potassium Level 4.3 MEQ/L (3.5-5.1) Chloride Level 109 MEQ/L (98-107) Carbon Dioxide Level 15.6 MEQ/L (21.0-32.0) Anion Gap 13 MEQ/L (5-15) Blood Urea Nitrogen 24 MG/DL (7-18) Creatinine 1.44 MG/DL (0.50-1.00) Estimat Glomerular Filtration 36 ML/MIN (>89) Rate Random Glucose 89 MG/DL (74-106) Calcium Level 6.2 MG/DL (8.5-10.1) Protein Corrected Calcium 8.0 MG/DL (8.5-10.1) Total Bilirubin 0.6 MG/DL (0.2-1.0) Aspartate Amino Transf 25 U/L (15-37) (AST/SGOT) Alanine Aminotransferase 15 U/L (10-53) (ALT/SGPT) Alkaline Phosphatase 128 U/L (45-117) Total Protein 3.6 GM/DL (6.4-8.2) Albumin 1.5 GM/DL (3.4-5.0) Peritoneal Fluid pH 7.5 Peritoneal Fluid Specific 1.014 [place] Peritoneal Fluid Bile NEG (NEG) Peritoneal Fluid WBC 1548 /MM3 (0-10) Peritoneal Fluid RBC 1059 /MM3 (0-0) Peritoneal Fluid Neutrophils 68 % Peritoneal Fluid Lymphocytes 16 % Peritoneal Fluid Monocytes 8 % Peritoneal Fluid Histiocytes 8 % Peritoneal Fluid Total Protein 1.5 GM/DL Peritoneal Fluid Albumin 0.7 G/DL Peritoneal Fluid LDH 937 U/L Peritoneal Fluid Glucose LESS THAN 1 MG/DL Peritoneal Fluid Amylase 778 U/L Peritoneal Fluid Lipase 5643 U/L Test 12/25/16 12/26/16 12/26/16 22:14 05:00 05:20 Urine Eosinophils NONE SEEN /HPF (NONE SEEN) White Blood Count 13.7 TH/MM3 (4.0-11.0) Red Blood Count 3.02 MIL/MM3 (4.00-5.30) Hemoglobin 9.5 GM/DL (11.6-15.3) Hematocrit 28.8 % (35.0-46.0) Mean Corpuscular Volume 95.3 FL (80.0-100.0) Mean Corpuscular Hemoglobin 31.4 PG (27.0-34.0) Mean Corpuscular Hemoglobin 32.9 % Concent (32.0-36.0) Red Cell Distribution Width 19.2 % (11.6-17.2) Platelet Count 16 TH/MM3 (150-450) Mean Platelet Volume 9.1 FL (7.0-11.0) Neutrophils (%) (Auto) 96.3 % (16.0-70.0) Lymphocytes (%) (Auto) 2.6 % (9.0-44.0) Monocytes (%) (Auto) 0.7 % (0.0-8.0) Eosinophils (%) (Auto) 0.2 % (0.0-4.0) Basophils (%) (Auto) 0.2 % (0.0-2.0) Neutrophils # (Auto) 13.2 TH/MM3 (1.8-7.7) Lymphocytes # (Auto) 0.4 TH/MM3 (1.0-4.8) Monocytes # (Auto) 0.1 TH/MM3 (0-0.9) Eosinophils # (Auto) 0.0 TH/MM3 (0-0.4) Basophils # (Auto) 0.0 TH/MM3 (0-0.2) CBC Comment AUTO DIFF Differential Total Cells 100 Counted Neutrophils % (Manual) 13 % (16-70) Band Neutrophils % 68 % (0-6) Lymphocytes % 2 % (9-44) Monocytes % 1 % (0-8) Neutrophils # (Manual) 13.3 TH/MM3 (1.8-7.7) Metamyelocytes 16 % (0-1) Differential Comment FINAL DIFF MANUAL Toxic Vacuolation PRESENT (NONE SEEN) Dohle Bodies PRESENT (NONE SEEN) Platelet Estimate RARE (NORMAL) Platelet Morphology Comment NORMAL (NORMAL) Keratocytes OCC (NORMAL) Prothrombin Time 20.8 SEC (9.8-11.6) Prothromb Time International 1.8 RATIO Ratio Activated Partial 102.9 SEC Thromboplast Time (24.3-30.1) Sodium Level 134 MEQ/L (136-145) Potassium Level 4.5 MEQ/L (3.5-5.1) Chloride Level 102 MEQ/L (98-107) Carbon Dioxide Level 17.3 MEQ/L (21.0-32.0) Anion Gap 15 MEQ/L (5-15) Blood Urea Nitrogen 23 MG/DL (7-18) Creatinine 1.77 MG/DL (0.50-1.00) Estimat Glomerular Filtration 28 ML/MIN (>89) Rate Random Glucose 109 MG/DL (74-106) Calcium Level 5.5 MG/DL (8.5-10.1) Protein Corrected Calcium 7.2 MG/DL (8.5-10.1) Phosphorus Level 3.8 MG/DL (2.5-4.9) Magnesium Level 1.1 MG/DL (1.5-2.5) Total Bilirubin 0.7 MG/DL (0.2-1.0) Aspartate Amino Transf 576 U/L (15-37) (AST/SGOT) Alanine Aminotransferase 190 U/L (10-53) (ALT/SGPT) Alkaline Phosphatase 159 U/L (45-117) Total Protein 3.4 GM/DL (6.4-8.2) Albumin 1.6 GM/DL (3.4-5.0) Lactic Acid Level 5.2 mmol/L (0.4-2.0) (MYAH HICKS-C) Result Diagram: 12/26/16 0500 12/26/16 0500 Microbiology Microbiology Date/Time Procedure Status Source Growth 12/24/16 22:00 Urine Culture - Final Complete Urine Catheterized Urine Escherichia Coli Esbl Positive 12/24/16 22:45 Aerobic Blood Culture - Preliminary Resulted Blood Peripheral NO GROWTH IN 1 DAY 12/24/16 22:45 Anaerobic Blood Culture - Preliminary Resulted Gram Negative Sourav 12/24/16 22:51 Aerobic Blood Culture - Preliminary Resulted Blood Peripheral NO GROWTH IN 1 DAY 12/24/16 22:51 Anaerobic Blood Culture - Preliminary Resulted Blood Peripheral NO GROWTH IN 1 DAY 12/25/16 16:10 Gram Stain Received Fluid Peritoneal Fluid Pending 12/25/16 16:10 Body Fluid Culture Received Fluid Peritoneal Fluid Pending 12/25/16 16:10 Acid Fast Stain Received Fluid Peritoneal Fluid Pending 12/25/16 16:10 Mycobacterial Culture Received Fluid Peritoneal Fluid Pending 12/25/16 16:10 Fungal Smear Received Fluid Peritoneal Fluid Pending 12/25/16 16:10 Fungal Culture Received Fluid Peritoneal Fluid Pending 12/25/16 16:40 Aerobic Blood Culture Received Blood Other Pending 12/25/16 16:40 Anaerobic Blood Culture Received Blood Other Pending 12/25/16 18:43 Aerobic Blood Culture Resulted Blood Other Pending 12/25/16 18:43 Anaerobic Blood Culture - Final Resulted Blood Other QNS - SEE AEROBE REPORT Imaging Last Impressions Cyst Biopsy Asp-Paracentesis US 12/25/16 0000 Signed Impressions: Service Date/Time: Sunday, December 25, 2016 15:36 - CONCLUSION: Uncomplicated ultrasound guided paracentesis. Thiago Zaragoza MD Abdomen/Pelvis CT 12/25/16 0000 Signed Impressions: Service Date/Time: Sunday, December 25, 2016 18:50 - CONCLUSION: Acute pneumoperitoneum which may be related to paracentesis however the amount of air is greater than expected. Perforated viscus cannot be excluded. No evidence of discrete abscess. Interval development of severe anasarca, bilateral pleural effusions and bibasilar lower lobe consolidating infiltrate. Dominguez Freed MD Chest X-Ray 12/24/160 Signed Impressions: Service Date/Time: Saturday, December 24, 2016 22:49 - CONCLUSION: 1. [id number] and right central line in superior vena cava. Basal airspace disease in the lungs. No pneumothorax. Alban Farris MD Procedures 12/25/16 - paracentesis with removal of 2.2 L (MYAH HICKS-Melissa) Assessment and Plan Disease Oriented Problem List: (1) Ovarian cancer (2) Malignant ascites (3) UTI (urinary tract infection) (4) Nutrition, metabolism, and development symptoms (5) Thrombocytopenia Symptom Scale: (1) Debility 0-10 Scale: Unable to quantify (2) Abdominal pain 0-10 Scale: Unable to quantify Pertinent Non-Medical Issues Psychosocial: . Supported by mother, children, sister and other family members. Spiritual: Pentecostal jessie. Legal: Patient is unable to participate in conversation today given intractable pain. In the absence of written advance directives, health care proxy decision- making falls to the patient's spouse. Ethical issues impacting care: No known concerns at this time. . Important Contacts * Francisco J Murphy, spouse: [phone] or [phone] * Pascale Bermudez, sister: [phone] . Prognosis Overall prognosis is poor given advanced retractable ovarian cancer. Life expectancy less than 6 months. Now with septic shock. . Code Status: No Code Plan * Patient is unable to participate in conversation today given intractable pain. In the absence of written advance directives, health care proxy decision- making falls to the patient's spouse. * NO CODE * 12/26/16 - Met with , 2 daughters, son, grandson and sister in conference room. Dr. Phillip joined us for a portion of this meeting. Medical update provided, including labs and imaging results. Reviewed clinical change since yesterday. Discussed options in transition to comfort measures. Questions answered to their satisfaction. Patient appears to be imminently dying. Family desires transition to comfort measures. They have elected NO CODE. They would like to [facility] until patients [facility] arrives [facility] Family requests supervisor model making support, they will visit. Family is very appreciative of time spent and all are in agreement with plan of care to transition to comfort measures once mother arrives. * SYMPTOMS: abdominal pain, dyspnea: patient with intermittent grimacing and agonal respirations. Orders for Morphine and Ativan written by Dr. Tubbs for comfort measures. * Palliative care will continue to follow throughout hospital course to assist with symptom management and further clarification of treatment goals. . (MYAH HICKS) Attestation To help prompt me to consider important information that might be impacting today's encounter and assessment, information from prior notes written by myself or my colleagues may have been "brought forward" into today's note. My signature on this note, however, is an attestation that I personally performed the exam, history, and/or decision-making noted today, and, unless otherwise indicated, the interactions with patient, family, and staff as well as the review of records all occurred today. I also attest that the listed assessment and stated plan reflect my best clinical judgment today based on the combination of historical information, prior notes, and today's exam/ interactions. When time spent is documented, it refers only to time spent today by the signer, or if indicated, combined time spent today by collaborating physician/nurse practitioner. (MYAH HICKS) Collaborating MD Comments Chart reviewed. Case discussed with palliative care MOTION STUDY ANALYST. Above MOTION STUDY ANALYST note reviewed and I concur. . (Renan Tubbs MD) MYAH HICKS Dec 26, 2016 10:38 Renan Tubbs MD Jan 16, 2017 12:22
[2016-12-26] MEDS ORDERED: BISACODYL 10 MG SUPP PR PRN (11:00)
[2016-12-26] MEDS ORDERED: HYOSCYAMINE 0.125 MG TAB SL PRN (11:00)
[2016-12-26] MEDS ORDERED: FUROSEMIDE 20 MG/2 ML VIAL IV PRN (11:00)
[2016-12-26] MEDS ORDERED: ACETAMINOPHEN 650 MG SUPP PR PRN (11:00)
[2016-12-26] MEDS: LORazepam 2 MG/ML VIAL IV PUSH PRN ×2 (11:21→23:22)
[2016-12-26] MEDS: MORPHINE SULFATE 4 MG/ML INJ IV PUSH PRN ×6 (11:37→23:21)
--- NOTE | 2016-12-26 12:17 | HHI.PR ---
Addendum to Inpatient Note Addendum Reason: Additional Documentation Additional Information recd call from Radiologist last night. dominik Kam: significant amount of air Patient is being transitioned to comfort care at the present time Will sign off if any change in clinical condition or plans please reconsult. Merle Tamayo MD Dec 26, 2016 12:17
--- NOTE | 2016-12-26 17:09 | HHI.CCPN ---
Subjective Remarks/Hospital Course 12/25: 76 year old female presents with a history lethargy x 2 days. She has stage IV ovarian cancer refractory to treatment, with ascites requiring weekly drainage. The patient herself is unable to provide any significant history. Per patient's she has not been eating or drinking well. In the emergency room the patient was noted to be hypotensive prior to arrival with systolic blood pressure in the 70s, heart rate in the 140s. No IV access was able to be obtained prior to arrival and right IJ central line was placed by ER attending. 12/26: Patient remained hypotensive yesterday requiring Levophed 50 mics per minute. She had ultrasound-guided paracentesis with removal of 2200 cc of ascites fluid. CT abdomen pelvis subsequently revealed free air possibly related to perforated viscus versus paracentesis. Family was contacted by overnight associate contact lens molder and did not wish to pursue surgical intervention in view of extremely poor prognosis. This morning patient was made DNR with comfort measures only following discussions with Dr. Phillip and palliative care. Objective Vital Signs Date Time Temp Pulse Resp B/P Pulse Ox O2 Delivery O2 Flow Rate FiO2 12/26/16 14:00 118 12/26/16 14:00 69/49 12/26/16 12:00 98.9 12 96 12/26/16 07:00 Nasal Cannula 2.00 Intake and Output 12/25/16 12/25/16 12/26/16 08:00 16:00 00:00 Intake Total 5105 ml 3376 ml 2792 ml Output Total 275 ml 20 ml 34 ml Balance 4830 ml 3356 ml 2758 ml Result Diagram: 12/26/16 0500 12/26/16 0500 Other Results Microbiology Date/Time Procedure Status Source Growth 12/24/16 22:00 Urine Culture - Final Complete Urine Catheterized Urine Escherichia Coli Esbl Positive Imaging Last 24 hours Impressions Chest X-Ray 12/24/16 2140 Signed Impressions: Service Date/Time: Saturday, December 24, 2016 22:49 - CONCLUSION: 1. Jarvee-y-Xver and right central line in superior vena cava. Basal airspace disease in the lungs. No pneumothorax. Alban Farris MD Objective Remarks GENERAL: Elderly woman. Critically ill appearing SKIN: Warm and dry. HEAD: Normocephalic. EYES: No scleral icterus. No injection or drainage. NECK: Supple, trachea midline. No JVD or lymphadenopathy. CARDIOVASCULAR: Regular rate and rhythm without murmurs, gallops, or rubs. RESPIRATORY: Decreased air entry bilaterally at bases, scattered rhonchi. Agonal respirations noted. GASTROINTESTINAL: Abdomen distended, soft bowel sounds absent. MUSCULOSKELETAL: No cyanosis, or edema. Neuro: Encephalopathic with agonal respirations. Not responsive to painful stimuli. Vascular Central Line Catheter: Yes Assessment to: Continue A/P Problem List: (1) UTI (urinary tract infection) ICD Code: N39.0 Status: Acute (2) Ovarian cancer ICD Code: C56.9 Status: Chronic (3) Malignant ascites ICD Code: R18.0 Status: Chronic Assessment and Plan Septic shock Secondary to peritonitis with possible perforated viscus Metastatic ovarian cancer Encephalopathy Plan: Patient on broad-spectrum antibiotics and Levophed to this morning. Family refused surgical intervention last night and wanted to focus more on comfort measures in view of extremely poor prognosis with refractory metastatic ovarian cancer status post multiple rounds of chemotherapy previously and repeated paracentesis. Family meeting held by palliative care team. Discussed with Dr. Phillip this morning who agrees with transitioning to comfort measures. Patient made DNR status. Stopping antibiotics, pressors and IV fluids. Morphine/Ativan when necessary for comfort. Palliative care team following. Comfort measures only. Condition critical with imminent. Time spent on critical care excluding procedures 30 minutes Cem Tamayo MD Dec 26, 2016 17:09
--- NOTE | 2016-12-27 16:02 | MB ---
cc: YVONNE BERNARD MD DATE OF CONSULTATION: 12/26/2016. REASON FOR CONSULTATION: Recurrent ovarian cancer. PHYSICIAN REQUESTING CONSULTATION: Dr. Keagan Mei and Dr. Clint Tamayo. REASON FOR ADMISSION: Peritonitis, sepsis, perforated viscus. HISTORY OF PRESENT ILLNESS: This patient is seen and her findings are reviewed. She is seen in conjunction with our nurse practitioner (Ted Huerta). I agree with her findings, assessment and plan of care. Mireya Murphy is a 76-year-old female with known progressive persistent pamunkey-refractory ovarian cancer. We had a very lengthy discussion with her and her family members last week in the office where the decision was made to shift to outpatient hospice care. They were in favor of an indwelling intraperitoneal drain to drain off symptomatic ascites that has been rapidly reaccumulating and to also place a gastrostomy tube to help alleviate nausea and vomiting and to allow the benefit of eating and drinking to give her some satisfaction from that regard. She understood that the disease was terminal, it had progressed and persisted despite multiple chemotherapies, multiple surgeries and was never able to be put in remission status. She and her family were all in agreement with plans for hospice care and were working toward changing her code status and updating her living will. Since going home and meeting with hospice, she was brought to the emergency room because of acute onset of severe abdominal pain and found have signs and symptoms of sepsis. She was initially in great discomfort and then became unresponsive. She was requiring pressors to maintain minimum blood pressure. CT scan shows intraperitoneal air of large amount, thought more than expected from paracentesis. There was no obvious abscess. She has anasarca, pleural effusions. Previous blood culture is positive for E-coli. On exam, she is unresponsive with central and peripheral wasting with extensive edema. Her skin is mottled and cool. Her respirations are agonal with a rate of 8-10 breaths per minute on exam. I had the opportunity to meet with her family for a family consultation. Again, this was being directed by Sharda Lal of hospice. I am grateful for all of her care and the help of the hospice team in addition to the firewood cutter, medical team, infectious disease and others. The focus of the discussion was to again confirm and clarify family's wishes. All family members were in agreement that she be made a DNR, DNI and to have no heroic measures or efforts at resuscitation. They all understood that her situation was terminal and that was nearly imminent. They had one last family member who they would like to visit that was anticipated later on this day after which they would withdraw any pressor support and provide comfort measures only. Discussion ensued, questions were answered. They felt that she was comfortable and getting all of the care that she needed and they were grateful for the care provided. MD TENISHA Hill/GUILLERMO /12:55 PM /3:46 PM
[2016-12-27] MEDS ORDERED: PHARMACY ORDERED LAB XX ONE (22:45)
--- NOTE | 2016-12-28 06:55 | HHI.DS ---
Summary Note Date of : Dec 27, 2016 Time Of : 0122 Admission Date Dec 24, 2016 at 23:49 Admitting Diagnosis Sepsis, UTI Diagnosis at Time of : (1) UTI (urinary tract infection) ICD Code: N39.0 (2) suspected perforated viscus (3) Bacteremia ICD Code: R78.81 (4) Septic shock ICD Code: A41.9 Diagnosis: Principal (5) Ovarian cancer ICD Code: C56.9 (6) Malignant ascites ICD Code: R18.0 (7) Thrombocytopenia ICD Code: D69.6 (8) Debility ICD Code: R53.81 (9) Nutrition, metabolism, and development symptoms ICD Code: R63.8 (10) Abdominal pain ICD Code: R10.9 Procedures central line placement paracentesis Brief History 76 year old female presents with a history lethargy x 2 days. She has stage IV ovarian cancer refractory to treatment, with ascites requiring weekly drainage. The patient herself is unable to provide any significant history. Per patient 's she has not been eating or drinking well. In the emergency room the patient was noted to be hypotensive prior to arrival with systolic blood pressure in the 70s, heart rate in the 140s. No IV access was able to be obtained prior to arrival and right IJ central line was placed by ER attending CBC/BMP: 12/26/16 0500 12/26/16 0500 Significant Findings Laboratory Tests Test 12/25/16 12/25/16 12/25/16 12/26/16 12:10 12:35 16:10 05:00 Red Blood Count 3.54 MIL/MM3 3.02 MIL/MM3 (4.00-5.30) (4.00-5.30) Hemoglobin 11.2 GM/DL 9.5 GM/DL (11.6-15.3) (11.6-15.3) Hematocrit 33.8 % 28.8 % (35.0-46.0) (35.0-46.0) Red Cell Distribution Width 18.8 % 19.2 % (11.6-17.2) (11.6-17.2) Platelet Count 36 TH/MM3 16 TH/MM3 (150-450) (150-450) Chloride Level 109 MEQ/L (98-107) Carbon Dioxide Level 15.6 MEQ/L 17.3 MEQ/L (21.0-32.0) (21.0-32.0) Blood Urea Nitrogen 24 MG/DL (7-18) 23 MG/DL (7-18) Creatinine 1.44 MG/DL 1.77 MG/DL (0.50-1.00) (0.50-1.00) Estimat Glomerular Filtration 36 ML/MIN (>89) 28 ML/MIN (>89) Rate Calcium Level 6.2 MG/DL 5.5 MG/DL (8.5-10.1) (8.5-10.1) Protein Corrected Calcium 8.0 MG/DL 7.2 MG/DL (8.5-10.1) (8.5-10.1) Alkaline Phosphatase 128 U/L 159 U/L (45-117) (45-117) Total Protein 3.6 GM/DL 3.4 GM/DL (6.4-8.2) (6.4-8.2) Albumin 1.5 GM/DL 1.6 GM/DL (3.4-5.0) (3.4-5.0) Lactic Acid Level 3.3 mmol/L (0.4-2.0) Peritoneal Fluid WBC 1548 /MM3 (0-10) Peritoneal Fluid RBC 1059 /MM3 (0-0) White Blood Count 13.7 TH/MM3 (4.0-11.0) Neutrophils (%) (Auto) 96.3 % (16.0-70.0) Lymphocytes (%) (Auto) 2.6 % (9.0-44.0) Neutrophils # (Auto) 13.2 TH/MM3 (1.8-7.7) Lymphocytes # (Auto) 0.4 TH/MM3 (1.0-4.8) Neutrophils % (Manual) 13 % (16-70) Band Neutrophils % 68 % (0-6) Lymphocytes % 2 % (9-44) Neutrophils # (Manual) 13.3 TH/MM3 (1.8-7.7) Metamyelocytes 16 % (0-1) Toxic Vacuolation PRESENT (NONE SEEN) Dohle Bodies PRESENT (NONE SEEN) Platelet Estimate RARE (NORMAL) Keratocytes OCC (NORMAL) Prothrombin Time 20.8 SEC (9.8-11.6) Activated Partial 102.9 SEC Thromboplast Time (24.3-30.1) Sodium Level 134 MEQ/L (136-145) Random Glucose 109 MG/DL (74-106) Magnesium Level 1.1 MG/DL (1.5-2.5) Aspartate Amino Transf 576 U/L (15-37) (AST/SGOT) Alanine Aminotransferase 190 U/L (10-53) (ALT/SGPT) Test 12/26/16 05:20 Lactic Acid Level 5.2 mmol/L (0.4-2.0) Imaging Last 24 hours Impressions Chest X-Ray 12/24/160 Signed Impressions: Service Date/Time: Saturday, December 24, 2016 22:49 - CONCLUSION: 1. [id number] and right central line in superior vena cava. Basal airspace disease in the lungs. No pneumothorax. Alban Farris MD Hospital Course 12/25: 76 year old female presents with a history lethargy x 2 days. She has stage IV ovarian cancer refractory to treatment, with ascites requiring weekly drainage. The patient herself is unable to provide any significant history. Per patient's she has not been eating or drinking well. In the emergency room the patient was noted to be hypotensive prior to arrival with systolic blood pressure in the 70s, heart rate in the 140s. No IV access was able to be obtained prior to arrival and right IJ central line was placed by ER attending. 12/26: Patient remained hypotensive requiring Levophed 15 mics per minute. She had ultrasound-guided paracentesis with removal of 2200 cc of ascites fluid. CT abdomen pelvis subsequently revealed free air possibly related to perforated viscus versus paracentesis. Family was contacted by third [employer] and did not wish to pursue surgical intervention in view of extremely poor prognosis. This morning patient was made DNR with comfort measures only following discussions with Dr. Phillip and palliative care. Her blood and urine cultures grew out ESBL E coli. Patient was evaluated by ID who had switched her to Meropenem, zyvox, micafungin for broad spectrum antibiotic coverage. Family did not wish to pursue aggressive measures including surgery and met with palliative care team as well as Dr. Phillip and elected to make patient DNR status and transitioned to comfort measures on 12/26/2016. Patient on 2016 at 0122 hours. Cem Tamayo MD Dec 28, 2016 06:55
== END 2016-12-27 04:45 | disposition expired | DRG 871 ==
LOC: NEPC 21:25 → NEDA 23:49 → N03A 12-25 03:12
PROVIDERS: ADMIT Internal Medicine Critical Care Medicine; ATTEND Internal Medicine Critical Care Medicine
PROC: 05HM33Z Insertion of Infusion Device into Right Internal Jugular Vein, Percutaneous Approach (ICD-10-PCS; principal; 2016-12-24)
PROC: 0W9G3ZZ Drainage of Peritoneal Cavity, Percutaneous Approach (ICD-10-PCS; 2016-12-25)
DX: A41.9 Sepsis, unspecified organism (principal); R65.21 Severe sepsis with septic shock; K63.1 Perforation of intestine (nontraumatic); K65.9 Peritonitis, unspecified; N17.9 Acute kidney failure, unspecified; G93.40 Encephalopathy, unspecified; R18.0 Malignant ascites; D89.9 Disorder involving the immune mechanism, unspecified; N39.0 Urinary tract infection, site not specified; D69.6 Thrombocytopenia, unspecified; G62.9 Polyneuropathy, unspecified; I10 Essential (primary) hypertension; T45.1X5A Adverse effect of antineoplastic and immunosuppressive drugs, initial encounter; M19.90 Unspecified osteoarthritis, unspecified site; Z85.3 Personal history of malignant neoplasm of breast; Z85.43 Personal history of malignant neoplasm of ovary; Z51.5 Encounter for palliative care; E78.00 Pure hypercholesterolemia, unspecified; Z66 Do not resuscitate; E78.5 Hyperlipidemia, unspecified
CPT/HCPCS: 36556; 49083; 51702; 71010; 74176; 80053; 81001; 82042; 82150; 82550; 82945; 82948; 83605; 83615; 83690; 83735; 83986; 84100; 84134; 84157; 84315; 84484; 85007; 85027; 85610; 85730; 87015; 87040; 87070; 87077; 87086; 87102; 87116; 87186; 87205; 87206; 87641; 89050; 89051; 93005; 96374; 96375; C1729; J0171; J0461; J0610; J1720; J2020; J2060; J2185; J2248; J2270; J2405; J2543; J2765; J3010; J3370; J7030; J7040; J7050; P9045; P9047